=== PATIENT | female | born 1990 | race Caucasian/White ===

== ENCOUNTER → 2016-09-12 | Outpatient (CLI) | payer OTHER ==
[~2016-09-12] MED LIST: BCPILLS PO
[2016-09-12 13:12] LABS: ALT/SGPT 42 U/L (12-78); AST/SGOT 20 U/L (15-37); BLOOD UREA NITROGEN 14 mg/dl (7-18); BUN/CREATININE RATIO 17.9 (10-20); CALCIUM 9.3 mg/dl (8.5-10.1); CARBON DIOXIDE 24 mmol/L (21-32); CHLORIDE 106 mmol/L (98-107); CHOLESTEROL 212 mg/dl (0-200); CREATININE 0.78 mg/dl (0.60-1.20); GLUCOSE,FASTING 93 mg/dl (70-99); POTASSIUM 4.7 mmol/L (3.5-5.1); SODIUM 137 mmol/L (136-145); TRIGLYCERIDES 159 mg/dl (0-150); VERY LOW DENSITY LIPOPROT CALC 32 mg/dl
[2016-09-12 13:16] LABS: ALB/GLOB RATIO 0.8 (0.9-2); ALKALINE PHOSPHATASE 69 U/L (45-117); CHOLESTEROL/HDL RATIO 5.2; HDL CHOLESTEROL 41 mg/dl; LDL CHOLESTEROL CALCULATED 139 mg/dl
== END | disposition home or self-care (01) ==
LOC: C.LABPBG 08:14
PROVIDERS: ATTEND Physician Assistant
DX: Z00.00 Encounter for general adult medical examination without abnormal findings (principal)

== ENCOUNTER → 2017-03-05 | Outpatient (CLI) | payer OTHER ==
[2017-03-05 12:47] LABS: BLOOD UREA NITROGEN 12 mg/dl (7-18); CARBON DIOXIDE 26 mmol/L (21-32); CREATININE 0.65 mg/dl (0.60-1.20); GLUCOSE 92 mg/dl (70-99); POTASSIUM 3.8 mmol/L (3.5-5.1); SODIUM 136 mmol/L (136-145)
== END | disposition home or self-care (01) ==
LOC: C.LABPBG 10:08
PROVIDERS: ATTEND Physician Assistant
DX: I10 Essential (primary) hypertension (principal)

== ENCOUNTER 2019-12-23 07:32 | Inpatient (IN) ==
[2019-12-23] MEDS ORDERED: OXYTOCIN 30 UNITS/500 ML BAG IV PRN ×2 (07:59→08:02)
[2019-12-23 08:35] LABS: Hematocrit (blood only) 34.5 % (37-47); Hemoglobin 11.5 g/dL (12.0-16.0); Mean Corpuscular Hemoglobin 28.5 pg (25-34); Mean Corpuscular Volume 85.6 fL (80-100); Platelet Count 210 K/uL (130-400); RDW Coefficient of Variation 14.6 % (11.5-14.5); RDW Standard Deviation 45.8 fL (36.4-46.3); Red Blood Count 4.03 M/uL (4.2-5.4); White Blood Count 9.24 K/uL (4.8-10.8)
[2019-12-23 08:50] LABS: Mean Corpuscular Hgb Conc 33.3 g/dL (32-36)
[2019-12-23] MEDS: LACTATED RINGER'S 1,000 ML IV PRN ×3 (08:55→20:28)
--- NOTE | 2019-12-23 09:03 | History & Physical Report ---
Date of Service December 23, 2019 Assessment & Plan (1) Chronic hypertension affecting : (2) Obesity affecting , antepartum: (3) Diet controlled gestational diabetes mellitus (GDM), antepartum: (4) Unfavorable cervix in term : pt desires planned induction today. although bps have crept up, do not see any evidence of severe findings or superimposed preeclampsia. labs done yest and were neg. will send urine prot/cr ratio now. watch bps. plan helton ripening and simultaneously begin pitocin. need to check baseline bsg and then q2hr in labor. Admission and Anticipated Discharge Date Admission Date: December 23, 2019 History of Present Illness Chief Complaint: planned induction Primary Care Provider: Any Boudreaux, 29yo at 38+wks egraissa presents to L&D with above cc with her indication being chronic hypertension in . Patient denies easton, visual change, ruq or epig pain. No rom, vb. +FM. No ctx. PNC c/b 1. CHTN, no meds. last efw 47% at 36wks 2. GDM non compliant, not sending glucoses to endo but says they are in range, AC % 51 at 36wks. PNL RH pos, RI, GBS neg, covid neg on 12/15/19 Allergies Allergy/AdvReac Type Severity Reaction Status Date / Time No Known Drug Allergies Allergy Verified 12/22/19 10:53 Home Medications Home Medications Medication Instructions Recorded Confirmed Type prenat.vits,[place]inee,iee-ixwi-hqlgu 1 tab PO DAILY 05/22/19 12/22/19 History acetone (urine) test #50 ea 07/30/19 12/22/19 Rx blood sugar diagnostic #150 ea 07/30/19 12/22/19 Rx blood-glucose meter #1 ea 07/30/19 12/22/19 Rx lancets 33 gauge #150 ea 07/30/19 12/22/19 Rx aspirin 81 mg tablet,delayed 81 mg PO DAILY 08/17/19 12/22/19 History release Patient History Medical History (Updated 12/23/19 @ 09:02 by Louisa Rivera MD, FACOG) Amenorrhea Encounter for anatomic survey H/O infectious mononucleosis HTN (hypertension) Hx of varicella Supervision of normal intrauterine in primigravida Surgical History No pertinent past surgical history Family History (Updated 05/22/19 @ 14:40 by Gabbie Vasquez) Father Hypertension Grandfather (Maternal) Diabetes Myocardial infarction Grandfather (Paternal) Myocardial infarction Grandfather (Maternal) Lung cancer Social History (Updated 05/22/19 @ 14:41 by Gabbie Vasquez) Smoking Status: Former smoker Second Hand Exposure: No; Do You Dip or Chew Tobacco: No; Tobacco Cessation Education Requested by Patient: No Hx Alcohol Use: Yes Hx Substance Use: No Preferred Language: Argentine Communication Ability: Effective Visual Impairment: Limited Hearing Ability: Normal Lead Software Developer Required: No Beliefs That Will Affect Care: None marital status: marital status details: Anjel Messer [phone] Current Living Situation: Spouse Current Living Situation Comment: Lives at home with and 2 dogs current occupational status: employed current occupation: [employer] Other Information That Helps Us Care for You: No Feels Safe at Home: Yes Safety Concerns: Feels Safe At This Time Childhood Exposure to Second-Hand Smoke: No caffeine: Yes (Coffee x 1 today.) during the past year weight has: remained stable Dental Care, Regularly: Yes Physical Activity Frequency: Daily Seatbelt Use: always Sunscreen Use: Yes Assistive Devices: None Review of Systems per hpi Physical Exam Constitutional: WD/WN, vitals as above Respiratory: normal respiratory effort, lungs clear to auscultation Cardiovascular: Rate/Rhythm: regular rate and regular rhythm Gastrointestinal (Abdomen): Percussion/Palpation: abdomen soft (obese); abdomen nontender EFW 8# Musculoskeletal: no edema Neurologic: grossly normal patellar dtr +1 no clonus Psychiatric: A+Ox3, euthymic affect Genitourinary: OB Exam Abdomen: + vertex (by u/d) and + estimated weight (8#) Manual OB Exam: + cervical dilation (finger tip ext os, int os not reachable), + cervical effacement (long) and + station (posterior and medium consistency) high OB Exam Monitor Tracing: + external FHT monitor used (150 mod variability reactive), + external uterine monitor used (no ctx), + category I and + normal FHT variability Informed consent obtained to proceed with helton ripening balloon due to unfavorable cx at term. SSE- cx visualized, grasped on ant lip with ring forcep, helton placed and balloon inflated with 40cc, spec removed, taped to thigh, pt abdulkadir well Results & Data ([facility]) Vital Signs (Past 12 Hours) Vital Signs Temp Pulse Resp BP 12/23/19 08:46 92 H 162/81 H 12/23/19 08:29 92 H 146/89 H 12/23/19 08:14 94 H 153/93 H 12/23/19 08:11 90 142/89 H 12/23/19 08:03 98.1 F 93 H 18 144/94 H 12/23/19 07:43 93 H 144/94 H Coding Level of Care Code None Diagnoses Chronic hypertension affecting O10.919 Obesity affecting , antepartum O99.210 Diet controlled gestational diabetes mellitus (GDM), antepartum O24.410 Unfavorable cervix in term O34.40 CPT Codes Misx Procedure Codes - 05862 Placement of cervical dilator: 20217 Placement of cervical dilator ([id number])
[2019-12-23 09:57] LABS: Protein Creatinine Ratio Urine 0.2 (0-0.2); Total Protein Urine Random 56.5 mg/dl (0-11.9)
--- NOTE | 2019-12-23 14:05 | Labor Progress Brief Note ---
Date of Service December 23, 2019 Subjective Reason For Note: Routine Evaluation helton bulb fell out. Assessment & Plan (1) Diet controlled gestational diabetes mellitus (GDM), antepartum: (2) Obesity affecting , antepartum: (3) Chronic hypertension affecting : will see how arom helps labor pattern, fhts categ 1. pitocin continues. Admission and Anticipated Discharge Date Admission Date: December 23, 2019 Physical Exam Constitutional: WD/WN, vitals as above Genitourinary: OB Exam Abdomen: + vertex (checked again by US) Manual OB Exam: + cervical dilation 4 cm, + cervical effacement (75%), + station (-3 but applied, cx toward left. ) and + amniotic fluid (AROM) clear Results & Data ([facility]) Vital Signs (Past 12 Hours) Vital Signs Temp Pulse Resp BP 12/23/19 13:59 96 H 141/87 H 12/23/19 13:44 81 145/89 H 12/23/19 13:29 88 150/95 H 12/23/19 13:14 84 142/82 H 12/23/19 13:03 92 H 126/87 12/23/19 12:44 86 155/86 H 12/23/19 12:31 86 158/88 H 12/23/19 12:14 90 143/93 H 12/23/19 11:59 85 148/95 H 12/23/19 11:45 90 151/91 H 12/23/19 11:29 82 155/91 H 12/23/19 11:21 99.0 F 83 18 144/88 H 12/23/19 10:59 85 156/85 H 12/23/19 10:45 78 155/80 H 12/23/19 10:30 85 149/86 H 12/23/19 10:14 81 159/82 H 12/23/19 10:01 85 148/85 H 12/23/19 09:29 86 125/85 12/23/19 09:14 90 130/83 12/23/19 09:00 92 H 129/80 12/23/19 08:46 92 H 162/81 H 12/23/19 08:29 92 H 146/89 H 12/23/19 08:14 94 H 153/93 H 12/23/19 08:11 90 142/89 H 10/21/20 08:03 98.1 F 93 H 18 144/94 H 12/23/19 07:43 93 H 144/94 H Coding Level of Care Code None Diagnoses Diet controlled gestational diabetes mellitus (GDM), antepartum O24.410 Obesity affecting , antepartum O99.210 Chronic hypertension affecting O10.919
[2019-12-23] MEDS ORDERED: SODIUM CHLORIDE 0.9% INJ 10 ML VIAL ONE (18:54)
[2019-12-23] MEDS ORDERED: ePHEDrine sulfate 50 MG/ML AMP ONE (18:54)
[2019-12-23] MEDS ORDERED: BUPIVACAINE 0.25% 30 ML VIAL ONE (18:54)
[2019-12-23] MEDS ORDERED: fentaNYL citrate 100 MCG/2 ML VIAL ONE (18:55)
[2019-12-23] MEDS ORDERED: fentaNYL 2MCG/ML ROPIVACAINE 1.25MG/ML 100 ML BAG EPI ONE (18:55)
--- NOTE | 2019-12-23 18:55 | Labor Progress Brief Note ---
Date of Service December 23, 2019 Subjective Reason For Note: Routine Evaluation having pain with ctx, breathing with ctx Assessment & Plan (1) Chronic hypertension affecting : (2) Obesity affecting , antepartum: (3) Diet controlled gestational diabetes mellitus (GDM), antepartum: desires epidural. will start ivf bolus and see if helps increased baseline fhts. some cx change. c/w pit. watch bps. Admission and Anticipated Discharge Date Admission Date: December 23, 2019 Physical Exam Constitutional: WD/WN, vitals as above Genitourinary: Manual OB Exam: + cervical dilation (5), + cervical effacement (75%) and + station -2 OB Exam Monitor Tracing: + external FHT monitor used (160 mod variability, reactive), + external uterine monitor used (q2), + category I and + normal FHT variability Results & Data ([facility]) Vital Signs (Past 12 Hours) Vital Signs Temp Pulse Resp BP 12/23/19 18:52 90 172/93 H 12/23/19 18:44 90 162/92 H 12/23/19 18:30 94 H 144/83 H 12/23/19 18:14 102 H 160/93 H 12/23/19 18:00 92 H 162/90 H 12/23/19 17:45 99 H 160/98 H 12/23/19 17:29 88 161/91 H 12/23/19 17:15 88 153/90 H 12/23/19 16:30 89 159/90 H 12/23/19 16:15 87 153/93 H 12/23/19 15:59 81 153/80 H 12/23/19 15:45 90 155/74 H 12/23/19 15:30 95 H 141/93 H 12/23/19 15:23 90 146/88 H 12/23/19 15:22 98.2 F 90 18 146/88 H 12/23/19 14:44 93 H 138/83 12/23/19 14:29 88 147/85 H 12/23/19 14:14 93 H 142/90 H 12/23/19 13:59 96 H 141/87 H 12/23/19 13:44 81 145/89 H 12/23/19 13:29 88 150/95 H 12/23/19 13:14 84 142/82 H 12/23/19 13:03 92 H 126/87 12/23/19 12:44 86 155/86 H 12/23/19 12:31 86 158/88 H 12/23/19 12:14 90 143/93 H 12/23/19 11:59 85 148/95 H 12/23/19 11:45 90 151/91 H 12/23/19 11:29 82 155/91 H 12/23/19 11:21 99.0 F 83 18 144/88 H 12/23/19 10:59 85 156/85 H 12/23/19 10:45 78 155/80 H 12/23/19 10:30 85 149/86 H 12/23/19 10:14 81 159/82 H 12/23/19 10:01 85 148/85 H 12/23/19 09:29 86 125/85 12/23/19 09:14 90 130/83 12/23/19 09:00 92 H 129/80 12/23/19 08:46 92 H 162/81 H 12/23/19 08:29 92 H 146/89 H 12/23/19 08:14 94 H 153/93 H 12/23/19 08:11 90 142/89 H 12/23/19 08:03 98.1 F 93 H 18 144/94 H 12/23/19 07:43 93 H 144/94 H Coding Level of Care Code None Diagnoses Chronic hypertension affecting O10.919 Obesity affecting , antepartum O99.210 Diet controlled gestational diabetes mellitus (GDM), antepartum O24.410
--- NOTE | 2019-12-23 21:13 | Labor Progress Brief Note ---
Date of Service December 23, 2019 Subjective Reason For Note: Requested By RN cx exam unchanged per rn, pit at 19, wanted to consider iupc if unchanged. pt comfortable. Assessment & Plan (1) Chronic hypertension affecting : (2) Obesity affecting , antepartum: (3) Diet controlled gestational diabetes mellitus (GDM), antepartum: bps noted, not severe. will see how mvu's look with iupc and titrate pit accordingly. fhts categ 1. Admission and Anticipated Discharge Date Admission Date: December 23, 2019 Physical Exam Constitutional: WD/WN, vitals as above Psychiatric: A+Ox3, euthymic affect Genitourinary: Manual OB Exam: + cervical dilation 5 cm, + cervical effacement 100% and + station -2 OB Exam Monitor Tracing: + external FHT monitor used (155 mod variability ), + external uterine monitor used (q2 pit at 19), + intra- uterine pressure catheter used, + category I and + normal FHT variability IUPC placed. Results & Data ([facility]) Vital Signs (Past 12 Hours) Vital Signs Temp Pulse Resp BP Pulse Ox 12/23/19 21:06 97 H 100 12/23/19 21:01 99 H 99 12/23/19 20:56 115 H 152/84 H 96 12/23/19 20:51 88 96 12/23/19 20:46 86 98 12/23/19 20:42 80 143/82 H 12/23/19 20:41 84 99 12/23/19 20:36 87 99 12/23/19 20:31 93 H 99 12/23/19 20:30 16 12/23/19 20:26 91 H 99 12/23/19 20:23 97 H 139/83 12/23/19 20:21 91 H 100 12/23/19 20:18 96 H 141/83 H 12/23/19 20:16 92 H 99 12/23/19 20:15 98.2 F 16 12/23/19 20:14 91 H 147/84 H 12/23/19 20:11 99 H 96 12/23/19 20:10 18 12/23/19 20:08 100 H 149/87 H 12/23/19 20:06 102 H 98 12/23/19 20:04 98 H 147/79 H 12/23/19 20:02 99 H 144/78 H 12/23/19 20:01 98 H 98 12/23/19 20:00 90 18 150/82 H 12/23/19 19:58 97 H 154/88 H 12/23/19 19:56 100 H 139/82 98 12/23/19 19:51 111 H 98 12/23/19 19:46 97 H 98 12/23/19 19:41 114 H 100 12/23/19 19:36 104 H 100 12/23/19 19:31 94 H 99 12/23/19 19:26 105 H 100 12/23/19 19:21 102 H 100 12/23/19 19:18 93 H 160/84 H 12/23/19 19:16 93 H 99 12/23/19 19:01 98.4 F 22 12/23/19 18:59 93 H 164/94 H 12/23/19 18:52 90 172/93 H 12/23/19 18:44 90 162/92 H 12/23/19 18:40 98.4 F 90 22 172/93 H 12/23/19 18:30 94 H 144/83 H 12/23/19 18:14 102 H 160/93 H 12/23/19 18:00 92 H 162/90 H 12/23/19 17:45 99 H 160/98 H 12/23/19 17:29 88 161/91 H 12/23/19 17:16 98.2 F 88 20 153/96 H 12/23/19 17:15 88 153/90 H 12/23/19 16:30 89 159/90 H 12/23/19 16:15 87 153/93 H 12/23/19 15:59 81 153/80 H 12/23/19 15:45 90 155/74 H 12/23/19 15:30 95 H 141/93 H 12/23/19 15:23 90 146/88 H 12/23/19 15:22 98.2 F 90 18 146/88 H 12/23/19 14:44 93 H 138/83 12/23/19 14:29 88 147/85 H 12/23/19 14:14 93 H 142/90 H 12/23/19 13:59 96 H 141/87 H 12/23/19 13:44 81 145/89 H 12/23/19 13:29 88 150/95 H 12/23/19 13:14 84 142/82 H 12/23/19 13:03 92 H 126/87 12/23/19 12:44 86 155/86 H 12/23/19 12:31 86 158/88 H 12/23/19 12:14 90 143/93 H 12/23/19 11:59 85 148/95 H 12/23/19 11:45 90 151/91 H 12/23/19 11:29 82 155/91 H 12/23/19 11:21 99.0 F 83 18 144/88 H 12/23/19 10:59 85 156/85 H 12/23/19 10:45 78 155/80 H 12/23/19 10:30 85 149/86 H 12/23/19 10:14 81 159/82 H 12/23/19 10:01 85 148/85 H 12/23/19 09:29 86 125/85 12/23/19 09:14 90 130/83 Coding Level of Care Code None Diagnoses Chronic hypertension affecting O10.919 Obesity affecting , antepartum O99.210 Diet controlled gestational diabetes mellitus (GDM), antepartum O24.410
[2019-12-23] MEDS ORDERED: fentaNYL 2MCG/ML ROPIVACAINE 1.25MG/ML 100 ML BAG EPI PRN (21:22)
[2019-12-23] MEDS ORDERED: diphenhydrAMINE 50 MG/ML VIAL IV PRN (21:22)
[2019-12-23] MEDS ORDERED: NALOXONE HCL 1 MG in SODIUM CHLORIDE 0.9% 1000ML 1,000 ML IV PRN (21:22)
[2019-12-23] MEDS ORDERED: NALOXONE HCL 0.4 MG/1 ML VIAL/CARP IV PRN (21:22)
[2019-12-23] MEDS ORDERED: ePHEDrine sulfate 50 MG/ML AMP IV PRN (21:22)
[2019-12-23] MEDS ORDERED: ONDANSETRON INJ 2 MG/ML 2 ML VIAL IV PRN (21:22)
--- NOTE | 2019-12-23 21:22 | Anesthesiology Consultation ---
Date of Service December 23, 2019 Assessment & Plan ASA ASA3 Proposed Anesthesia Anesthesia Type: Labor Epidural Risk / Benefits Reviewed With: PT / POA / Parent / Guardian, Accepts Plan and Informed Consent Obtained History Height/Weight Height: 5 ft 7 in Weight: 118.841 kg Allergies Allergy/AdvReac Type Severity Reaction Status Date / Time No Known Drug Allergies Allergy Verified 12/22/19 10:53 Medications Home Medications Medication Instructions Recorded Confirmed Last Taken prenat.vits,[place],lyl-oflo-[id number] 1 tab PO DAILY 05/22/19 12/22/19 Unknown acetone (urine) test #50 07/30/19 12/22/19 Unknown blood sugar diagnostic #150 07/30/19 12/22/19 Unknown blood-glucose meter #1 07/30/19 12/22/19 Unknown lancets 33 gauge #150 07/30/19 12/22/19 Unknown aspirin 81 mg tablet,delayed 81 mg PO DAILY 08/17/19 12/22/19 Unknown release Active Medications Generic Name Dose Route Start Last Admin Trade Name Tonya PRN Reason Stop Dose Admin Lactated Ringer's 1,000 mls @ 125 mls/hr 12/23/19 07:59 12/23/19 20:28 Lr IV 12/25/19 07:58 125 mls/hr .Q8H PRN Administration L&D Protocol Protocol Oxytocin 30 units in 500 mls @ 19 mls/hr 12/23/19 08:02 12/23/19 19:00 Pitocin IV 12/25/19 08:01 1.14 units/hr .Q24H PRN 19 mls/hr Labor Induction/Augmentation Titration Protocol 1.14 UNITS/HR Past Medical History Medical History Amenorrhea Encounter for anatomic survey H/O infectious mononucleosis HTN (hypertension) Hx of varicella Supervision of normal intrauterine in primigravida Exercise / Class Metabolic Activity II 4-5 Yardwork/Stairs/Walk up hill Past Family History Family History Father Hypertension Grandfather (Maternal) Diabetes Myocardial infarction Grandfather (Paternal) Myocardial infarction Grandfather (Maternal) Lung cancer Past Surgical History Surgical History No pertinent past surgical history Past Anesthesia History No Hx of Anesthesia Complications and No Family Hx of Anesthesia Complications History of PONV No Hx of PONV and No Hx of Motion Sickness Social History Smoking Status: Former smoker Do You Dip or Chew Tobacco: No Hx Alcohol Use: Yes Hx Substance Use: No Review of Systems denies fever/cough/ colds/ chest pain/ SOB/ GLORIA denies GLORIA Physical Exam Vital Signs Last Vital Signs Temp 36.8 C 12/23/19 20:15 Pulse 96 H 12/23/19 21:16 Resp 16 12/23/19 20:30 BP 140/67 12/23/19 21:12 Pulse Ox 99 12/23/19 21:16 ENMT Mouth: no TMJ abnormality and no dentition abnormality Thyromental Distance: > or= 3.5 Finger Breadths Mallampati Class: II Neck neck extension not limited Respiratory normal respiratory effort; no respiratory distress Auscultation: lungs clear to auscultation bilaterally Cardiovascular Rate/Rhythm: regular rate and regular rhythm Neurologic moves all extremities Psychiatric Orientation: alert and oriented x 3 Testing Laboratory Results 12/23/19 08:09
[2019-12-24] MEDS: LACTATED RINGER'S 1,000 ML IV PRN (00:58)
--- NOTE | 2019-12-24 02:27 | Labor Progress Brief Note ---
Date of Service December 24, 2019 Subjective Reason For Note: Requested By RN called by nurse to evaluate pt due to pt fatigue, tachy Assessment & Plan (1) Chronic hypertension affecting : (2) Obesity affecting , antepartum: (3) Diet controlled gestational diabetes mellitus (GDM), antepartum: pushes effectively at times. tachy noted but good variability, discussed vacuum assistance with couple but while pushing with them, ctx freq not enough. pit was stopped before per nurse due to decels. drained bladder for 300cc under sterile conditions and then ctx really spaced apart and so pit restarted. she declines vacuum assistance and given fhts baseline comeing down i would like to see if she can take break from pushing, restart pit as we have and change positions. once freq of ctx improve can push again. Admission and Anticipated Discharge Date Admission Date: December 23, 2019 Physical Exam Constitutional: WD/WN, vitals as above Genitourinary: Manual OB Exam: + cervical dilation 10 cm, + cervical effacement 100% and + station + 2 OB Exam Monitor Tracing: + external FHT monitor used (180 mod variability, now more 165 with mod variability and accels), + external uterine monitor used (q3-6), + category I and + normal FHT variability Results & Data ([facility]) Vital Signs (Past 12 Hours) Vital Signs Temp Pulse Resp BP Pulse Ox 12/24/19 02:21 102 H 96 12/24/19 02:16 116 H 97 12/24/19 02:12 115 H 125/67 12/24/19 02:11 114 H 97 12/24/19 02:09 146 H 90 12/24/19 02:06 120 H 96 12/24/19 02:04 116 H 93 12/24/19 02:01 111 H 98 12/24/19 01:57 121 H 120/79 12/24/19 01:56 120 H 98 12/24/19 01:51 113 H 98 12/24/19 01:46 114 H 97 12/24/19 01:44 115 H 85 L 12/24/19 01:42 111 H 135/69 12/24/19 01:41 115 H 97 12/24/19 01:36 131 H 98 12/24/19 01:31 113 H 97 12/24/19 01:28 114 H 138/68 12/24/19 01:26 125 H 88 L 12/24/19 01:21 124 H 98 12/24/19 01:16 109 H 98 12/24/19 01:13 109 H 134/69 12/24/19 01:11 108 H 99 12/24/19 01:07 99.3 F 12/24/19 01:06 128 H 100 12/24/19 01:02 109 H 80 L 12/24/19 01:01 99.3 F 110 H 18 98 12/24/19 00:56 131 H 97 12/24/19 00:51 108 H 98 12/24/19 00:46 127 H 96 12/24/19 00:41 106 H 98 12/24/19 00:38 108 H 90 12/24/19 00:36 108 H 98 12/24/19 00:32 117 H 93 12/24/19 00:31 116 H 98 12/24/19 00:29 114 H 161/81 H 12/24/19 00:26 124 H 99 12/24/19 00:22 98.8 F 20 12/24/19 00:21 114 H 100 12/24/19 00:16 110 H 99 12/24/19 00:11 107 H 137/72 99 12/24/19 00:06 113 H 99 12/24/19 00:01 105 H 98 12/23/19 23:57 112 H 141/80 H 12/23/19 23:56 110 H 99 12/23/19 23:51 106 H 99 12/23/19 23:46 104 H 99 12/23/19 23:42 104 H 159/88 H 12/23/19 23:41 105 H 99 12/23/19 23:36 104 H 100 12/23/19 23:31 104 H 99 12/23/19 23:27 102 H 162/81 H 12/23/19 23:26 99 H 18 100 12/23/19 23:21 106 H 98 12/23/19 23:16 95 H 99 12/23/19 23:11 108 H 151/82 H 98 12/23/19 23:06 103 H 100 12/23/19 23:01 104 H 100 12/23/19 22:59 98 H 155/80 H 94 12/23/19 22:57 100 H 184/85 H 10/21/20 22:56 100 H 100 10/21/20 22:51 107 H 100 10/21/20 22:46 104 H 99 10/21/20 22:45 99.1 F 98 H 18 161/86 H 10/21/20 22:41 106 H 98 10/21/20 22:36 102 H 99 10/21/20 22:31 102 H 99 10/21/20 22:26 109 H 99 10/21/20 22:21 95 H 97 10/21/20 22:16 98 H 98 10/21/20 22:11 101 H 136/80 98 10/21/20 22:06 115 H 18 94 10/21/20 22:02 116 H 91 10/21/20 22:01 116 H 99 10/21/20 21:56 113 H 130/70 99 10/21/20 21:51 112 H 99 10/21/20 21:46 90 99 10/21/20 21:42 91 H 126/76 10/21/20 21:41 93 H 99 10/21/20 21:36 97 H 98 10/21/20 21:31 91 H 98 10/21/20 21:29 18 10/21/20 21:26 101 H 125/63 100 10/21/20 21:21 101 H 100 10/21/20 21:16 96 H 99 10/21/20 21:12 92 H 140/67 10/21/20 21:11 93 H 99 10/21/20 21:06 97 H 100 10/21/20 21:01 99 H 99 10/21/20 21:00 16 10/21/20 20:56 98.4 F 115 H 18 152/84 H 96 10/21/20 20:51 88 96 10/21/20 20:46 86 98 10/21/20 20:42 80 143/82 H 10/21/20 20:41 84 99 10/21/20 20:36 87 99 10/21/20 20:31 93 H 99 10/21/20 20:30 16 10/21/20 20:26 91 H 99 10/21/20 20:23 97 H 139/83 10/21/20 20:21 91 H 100 10/21/20 20:18 96 H 141/83 H 10/21/20 20:16 92 H 99 10/21/20 20:15 98.2 F 16 12/23/19 20:14 91 H 147/84 H 12/23/19 20:11 99 H 96 12/23/19 20:10 18 12/23/19 20:08 100 H 149/87 H 12/23/19 20:06 102 H 98 12/23/19 20:04 98 H 147/79 H 12/23/19 20:02 99 H 144/78 H 12/23/19 20:01 98 H 98 12/23/19 20:00 90 18 150/82 H 12/23/19 19:58 97 H 154/88 H 12/23/19 19:56 100 H 139/82 98 12/23/19 19:51 111 H 98 12/23/19 19:46 97 H 98 12/23/19 19:41 114 H 100 12/23/19 19:36 104 H 100 12/23/19 19:31 94 H 99 12/23/19 19:26 105 H 100 12/23/19 19:21 102 H 100 12/23/19 19:18 93 H 160/84 H 12/23/19 19:16 93 H 99 12/23/19 19:01 98.4 F 22 12/23/19 18:59 93 H 164/94 H 12/23/19 18:52 90 172/93 H 12/23/19 18:44 90 162/92 H 12/23/19 18:40 98.4 F 90 22 172/93 H 12/23/19 18:30 94 H 144/83 H 12/23/19 18:14 102 H 160/93 H 12/23/19 18:00 92 H 162/90 H 12/23/19 17:45 99 H 160/98 H 12/23/19 17:29 88 161/91 H 12/23/19 17:16 98.2 F 88 20 153/96 H 12/23/19 17:15 88 153/90 H 12/23/19 16:30 89 159/90 H 12/23/19 16:15 87 153/93 H 12/23/19 15:59 81 153/80 H 12/23/19 15:45 90 155/74 H 12/23/19 15:30 95 H 141/93 H 12/23/19 15:23 90 146/88 H 12/23/19 15:22 98.2 F 90 18 146/88 H 12/23/19 14:44 93 H 138/83 12/23/19 14:29 88 147/85 H Coding Level of Care Code None Diagnoses Chronic hypertension affecting O10.919 Obesity affecting , antepartum O99.210 Diet controlled gestational diabetes mellitus (GDM), antepartum O24.410
--- NOTE | 2019-12-24 03:56 | Delivery Summary ---
Vaginal Delivery Summary Date of Service December 24, 2019 Called to bedside by nursing as contraction pattern more regular and patient ba ck to 2nd stage and now requesting assistance for maternal exhaustion. C/C/+3. Informed consent obtained for vacuum assistance, again with discussion of risks/benefits and the couple desired to proceed. The bladder had recently been drained. The vacuum was applied and over 2 pulls/2 contractions with one pop off the patient pushed to deliver a viable female infant Apgars 8 and 8 via over 2nd degree perineal laceration. Mouth and nose bulb suctioned at perineum. Shoulders and body delivered with ease. Infant was vigorous and crying at . Cord clamped at 30 seconds of life and infant to maternal abdomen where the cord was then doubly clamped and cut. Placenta delivered spontaneously and intact, three-vessel cord. Hemostasis achieved with dilute pitocin and uterine massage and drainage of the bladder for approximately 150 cc under sterile conditions. Laceration repaired in routine fashion with 3-0 vicryl, a portion of which required 1% local lidocaine injection for anesthesia. Cervix and sulci intact. EBL 300 cc. Mother and baby in stable recovery. Cord blood and gases obtained. [facility] Vaginal Delivery Charge Vaginal Delivery Codes: 84881 global code for the antepartum, delivery, and post-
[2019-12-24] MEDS ORDERED: ACETAMINOPHEN 325 MG TAB PO PRN (03:58)
[2019-12-24] MEDS ORDERED: oxyCODONE/ACETAMINOPHEN 5mg/325mg TAB PO PRN (03:58)
[2019-12-24] MEDS ORDERED: OXYTOCIN 30 UNITS/500 ML BAG IV PRN (03:58)
[2019-12-24] MEDS ORDERED: OXYTOCIN 20 UNITS in LACTATED RINGER'S 1,000 ML IV SCH (04:00)
[2019-12-24] MEDS ORDERED: DIPHTHERIA/TETANUS/PERTUSSIS 0.5 ML SYR/VIAL IM ONE (04:07)
[2019-12-24] MEDS ORDERED: SUPERCREAM 0.870% 15 GM JAR EXT PRN (04:07)
[2019-12-24] MEDS ORDERED: HYDROCORTISONE ACETATE 25 MG SUPP PR PRN (04:07)
[2019-12-24] MEDS ORDERED: BENZOCAINE 20% AER SPR 82.5 GM CAN EXT PRN (04:07)
[2019-12-24 04:12] LABS: Base Excess Cord Arterial Bld -6.6 mEq/L (-9-1.8); CO2 Cord Arterial Blood 33 mmHg (39.1-73.5); HCO3 Cord Arterial Blood 18 mmol/L (19.7-28.5); PO2 Cord Arterial Blood 32 mmHg (4.1-31.7); pH Cord Arterial Blood 7.35 (7.1-7.38)
[2019-12-24 04:17] LABS: Base Excess Cord Venous Blood -6.8 mEq/L (-7.7-1.9); Cord Venous Blood HCO3 18 mmol/L (18.4-26.8); Cord Venous Blood PCO2 32 mmHg (30.4-57.2); Cord Venous Blood PO2 32 mmHg (14.1-43.3); Cord Venous Blood pH 7.35 (7.20-7.44)
[2019-12-24] MEDS: IBUPROFEN 600 MG TAB PO PRN ×2 (06:15→18:45)
--- NOTE | 2019-12-24 06:55 | Anesthesia Procedure Note ---
Date of Service December 24, 2019 Anesthesia Post Epidural Note Vital Signs Vital Signs: Temp Pulse Resp BP Pulse Ox 37.0 C 102 H 16 138/71 97 12/24/19 06:03 12/24/19 06:03 12/24/19 06:03 12/24/19 06:03 12/24/19 03:51 Pain Intensity Lower Abdomen: Pain Intensity: 1 Notes Mental Status: alert / awake / arousable and participated in evaluation Patient Amnestic to Procedure: No Nausea / Vomiting: adequately controlled Pain: adequately controlled Airway Patency, RR, SpO2: stable & adequate BP & HR: stable & adequate Hydration State: stable & adequate Neuraxial Anesthesia: was administered and sensory block resolved Anesthetic Complications: no major complications apparent and Pt Satisfied with anesthetic care
[2019-12-24] MEDS: DOCUSATE SODIUM 100 MG CAP PO SCH ×2 (08:40→21:27)
[2019-12-24] MEDS ORDERED: LABETALOL HCL 100 MG TAB PO ONE ×2 (09:40→17:21)
--- NOTE | 2019-12-24 17:23 | Obstetrical Progress Note ---
Date of Service Patient has had some elevated blood pressures today with some systolics in the 1 60-1 70 range the patient is asymptomatic from a point of view of worrisome sy mptoms such as headache she will disturbances we have tried 100 mg of labetalol p.o. times once and I repeated this dose again so she has had 200 mg p.o. of labetalol we will follow her pressures closely December 24, 2019 Assessment & Plan Admission and Anticipated Discharge Date Admission Date: December 23, 2019 Results & Data ([facility]) Vital Signs (Past 12 Hours) Vital Signs Temp Pulse Pulse Resp BP BP Pulse Ox 12/24/19 17:15 169/94 H 12/24/19 16:18 158/88 H 12/24/19 15:18 98.1 F 116 H 18 171/99 H 99 12/24/19 11:30 97.9 F 102 H 18 155/96 H 97 12/24/19 09:35 161/106 H 12/24/19 08:49 173/107 H 12/24/19 08:31 98.2 F 108 H 18 174/113 H 98 12/24/19 06:03 98.6 F 102 H 16 138/71 12/24/19 05:48 98 H 137/74 12/24/19 05:33 85 18 133/68 PG Care Time/CCT Total # of Minutes Spent Total Time Spent with Patient: Total time spent is greater than 50% in coordination of care (as documented) at patient's floor/unit and/or counseling patient: Coding Level of Care Code None
[2019-12-25] MEDS: IBUPROFEN 600 MG TAB PO PRN ×2 (00:13→16:10)
--- NOTE | 2019-12-25 05:52 | Obstetrical Progress Note ---
Date of Service <Edgar Rodriguez MD - Last Filed: 12/25/19 07:40> December 25, 2019 Assessment & Plan <Edgar Rodriguez MD - Last Filed: 12/25/19 07:40> (1) : - PNL: Rh pos, RI, GBS neg, COVID neg - Feels well today. Eating well, voiding well, ambulating well - Pain well controlled with ibuprofen 600mg Q4H PRN - Patient had high blood pressures yesterday into the 160s-170s and received 200mg labetalol--normotensive since then with no headaches - Routine postparum care -- OOB, ambulation, diet progression as tolerated - After discharge will have 1 week follow-up due to high blood pressures--will go home on labetalol 100mg BID - Plan to discharge later today Day #:: 1 Subjective <Edgar Rodriguez MD - Last Filed: 12/25/19 07:40> Ronald is a 29 y/o female who is PPD #1 following VAVD at 38+ weeks. She reports feeling well overall this morning. Light abdominal cramping and 3/10 pain well managed on analgesics. Voiding well. Tolerating meals overnight without difficulty. Patient has been able to ambulate some. Has persistent lochia with some improvement this morning. Currently . pAtient feels ready to go home today. Review of Systems Denies fever or chills. Denies shortness of breath or cough. Denies chest pain. Denies breast pain. Denies dysuria. Denies leg pain or leg swelling. Denies headache or changes in vision. Physical Exam <Edgar Rodriguez MD - Last Filed: 12/25/19 07:40> General: Alert, oriented. No acute distress. Cardiac: Regular rate and rhythm. No murmurs. Respiratory: Clear to auscultation bilaterally a/p, no wheezes/rales/rhonchi. No increased work of breathing. Symmetrical chest rise. No respiratory distress. Abdomen: Soft, nontender, nondistended. Bowel sounds present. Uterus: Uterine fundus firm, palpable 1 cm below umbilicus. Lower Extremities: No lower extremity edema or swelling. No deep calf pain. Georgie's negative bilaterally. Results & Data ([facility]) <Edgar Rodriguez MD - Last Filed: 12/25/19 07:40> Vital Signs (Past 12 Hours) Vital Signs Temp Pulse Resp BP 12/25/19 04:30 36.4 C L 86 16 123/77 12/25/19 00:10 36.5 C 102 H 16 113/79 12/24/19 21:30 107 H 18 125/85 12/24/19 19:20 36.7 C 116 H 18 116/77 12/24/19 18:05 158/98 H <Tila Oviedo MD, FACOG - Last Filed: 12/25/19 07:54> Co-Signing Physician Notes Resident Physician Supervision Note: I was present with Dr. Champion during the history and exam. I discussed the case with the resident and agree with the findings and plan as documented in the note. Any exceptions or clarifications are listed here: [None] Documented By: Tila Oviedo MD, FACOG Resident Activity Tracking <Edgar Rodriguez MD - Last Filed: 12/25/19 07:40> Resident Involvement: Resident Care Provided Care Provided: OB Delivery
[2019-12-25] MEDS: DOCUSATE SODIUM 100 MG CAP PO SCH ×2 (09:07→20:48)
[2019-12-25] MEDS: LABETALOL HCL 100 MG TAB PO SCH ×2 (10:32→20:48)
--- NOTE | 2019-12-26 06:58 | Obstetrical Progress Note ---
Date of Service <Edgar Rodriguez MD - Last Filed: 12/26/19 08:05> December 26, 2019 Assessment & Plan <Edgar Rodriguez MD - Last Filed: 12/26/19 08:05> (1) : - PNL: Rh pos, RI, GBS neg, COVID neg - Feels well today. Eating well, voiding well, ambulating well - Pain well controlled with ibuprofen 600mg Q4H PRN - Patient had high blood pressures yesterday into the 160s-170s and received 200mg labetalol--normotensive since then with no headaches - Routine postparum care -- OOB, ambulation, diet progression as tolerated - After discharge will have 1 week follow-up due to high blood pressures--will go home on labetalol 100mg BID - Plan for discharge later today Subjective <Edgar Rodriguez MD - Last Filed: 12/26/19 08:05> Ronald is a 29 y/o female who is PPD #2 following at 38+ weeks. She reports feeling well overall this morning. Light abdominal cramping and 1/10 pain well managed on analgesics. Voiding well. Tolerating meals overnight without difficulty. Patient has been able to ambulate some. Has persistent lochia with some improvement this morning. Currently . Review of Systems Denies fever or chills. Denies shortness of breath or cough. Denies chest pain. Denies breast pain. Denies dysuria. Denies leg pain or leg swelling. Denies headache or changes in vision. Physical Exam <Edgar Rodriguez MD - Last Filed: 12/26/19 08:05> General: Alert, oriented. No acute distress. Cardiac: Regular rate and rhythm. No murmurs. Respiratory: Clear to auscultation bilaterally a/p, no wheezes/rales/rhonchi. No increased work of breathing. Symmetrical chest rise. No respiratory distress. Abdomen: Soft, nontender, nondistended. Bowel sounds present. Uterus: Uterine fundus firm, palpable 2 cm below umbilicus. Lower Extremities: No lower extremity edema or swelling. No deep calf pain. Georgie's negative bilaterally. Results & Data ([facility]) <Edgar Rodriguez MD - Last Filed: 12/26/19 08:05> Vital Signs (Past 12 Hours) Vital Signs Temp Pulse Resp BP Pulse Ox 12/26/19 03:10 36.7 C 91 H 16 139/97 98 12/25/19 23:40 36.4 C L 81 17 146/98 H 97 <Joshua Drummond Jr, MD, FACOG - Last Filed: 12/26/19 08:27> Co-Signing Physician Notes Resident Physician Supervision Note: I was present with Dr. Champion during the history and exam. I discussed the case with the resident and agree with the findings and plan as documented in the note. Any exceptions or clarifications are listed here: Patient desires d/c. Rx for labetalol sent, pt to f/u in 1 week for BP check Documented By: Joshua Drummond Jr, MD, FACOG Resident Activity Tracking <Edgar Rodriguez MD - Last Filed: 12/26/19 08:05> Resident Involvement: Resident Care Provided Care Provided: OB Delivery
[2019-12-26] MEDS: IBUPROFEN 600 MG TAB PO PRN (09:07)
[2019-12-26] MEDS: LABETALOL HCL 100 MG TAB PO SCH (09:07)
[2019-12-26] MEDS: DOCUSATE SODIUM 100 MG CAP PO SCH (09:07)
--- NOTE | 2019-12-27 17:06 | Discharge Summary ---
Date of Service Date of admission: December 23, 2019 Date of discharge: December 26, 2019 Admission HPI Per Admitting Provider 29yo at 38+wks felipe presents to L&D with plan for induction with her indication being chronic hypertension in . Patient denies easton, visual change, ruq or epig pain. No rom, vb. +FM. No ctx. PNC c/b 1. CHTN, no meds. last efw 47% at 36wks 2. GDM non compliant, not sending glucoses to endo but says they are in range, AC % 51 at 36wks. PNL RH pos, RI, GBS neg, covid neg on 12/15/19 Discharge Data Consultations 12/23/19 07:59 Consult Anesthesiology Stat Hospital Course (1) Chronic hypertension during : (2) Gestational diabetes: (3) Obesity affecting : The patient was admitted for planned induction and helton ripening balloon was placed for an unfavorable cervix and pitocin was started. Her membranes were ultimately ruptured and she recieved an epidural for anesthesia. Her labor progressed to 2nd stage. She complained of maternal exhaustion and requested vacuum assistance. See delivery summary for details. Her course and recovery were complicated with intermittent elevated blood pressures. She was started on labetalol during her course and sent home on med with prescription sent to pharmacy and plan for 1 week office bp check. She was stable for discharge on her day #2. Instructions reviewed and given. Coding Level of Care Code None Diagnoses Chronic hypertension during O10.919 Gestational diabetes O24.419 Obesity affecting O99.210
== END 2019-12-26 20:46 | disposition home or self-care (01) | DRG 807 ==
LOC: 4S1 07:32 → 4S2 12-24 06:30

== ENCOUNTER 2019-12-29 08:05 | Inpatient (IN) ==
[2019-12-29] MEDS ORDERED: SODIUM CHLORIDE 0.9% 1000ML 1,000 ML IV ONE (08:37)
--- NOTE | 2019-12-29 08:45 | Emergency Department Note ---
History of Present Illness General Chief complaint: Swelling/Edema to Extremity Stated complaint: HAD BABY 5DAYS AGO,SWELLING TO RT FOOT,HX HTN Time Seen by Provider: 12/29/19 08:20 Source: patient, family and old records reviewed Mode of arrival: ambulatory Limitations: no limitations History of Present Illness Maximum Pain Intensity: 3 This patient comes in after having right lower extremity edema for the last 3 days. She is vaginal delivery 5 days ago. It was vacuum extraction they did induce her secondary to chronic hypertension her blood pressure rising. She apparently did not have preeclampsia. They started on labetalol 100 mg twice daily her blood pressure is elevated here although she has yet to take her normal morning dose of blood pressure medication. She has had minimal vaginal b leeding and no significant abdominal pain just some mild soreness. No chest pain shortness of breath or pleurisy. No headache. No focal numbness weakness no nausea or vomiting. She is breast-feeding. Home Medications Home Medications Medication Instructions Recorded Confirmed Type prenat.vits,[place],bts-cmbm-jcqxt 1 tab PO QAM 05/22/19 12/29/19 History acetone (urine) test #50 cathy 07/30/19 12/22/19 Rx blood sugar diagnostic #150 07/30/19 12/22/19 Rx blood-glucose meter #1 07/30/19 12/22/19 Rx lancets 33 gauge #150 07/30/19 12/22/19 Rx labetalol 100 mg PO BID #60 tab 12/25/19 12/29/19 Rx Allergies Allergy/AdvReac Type Severity Reaction Status Date / Time No Known Drug Allergies Allergy Verified 12/29/19 08:40 Past Med/Surg History Medical History Amenorrhea Encounter for anatomic survey H/O infectious mononucleosis HTN (hypertension) Hx of varicella Supervision of normal intrauterine in primigravida Surgical History No pertinent past surgical history Family History Father Hypertension Grandfather (Maternal) Diabetes Myocardial infarction Grandfather (Paternal) Myocardial infarction Grandfather (Maternal) Lung cancer Social History Smoking Status: Never smoker Second Hand Exposure: No; Hx Alcohol Use: Yes Hx Substance Use: No Preferred Language: [place] Communication Ability: Effective Visual Impairment: Limited Hearing Ability: Normal 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 Beliefs That Will Affect Care: None marital status: marital status details: Anjel Messer (32) [phone] Current Living Situation: Spouse Current Living Situation Comment: Lives at home with and 2 dogs current occupational status: employed current occupation: [employer] Feels Safe at Home: Yes Childhood Exposure to Second-Hand Smoke: No caffeine: Yes (Coffee x 1 today.) during the past year weight has: remained stable Dental Care, Regularly: Yes Physical Activity Frequency: Daily Seatbelt Use: always Sunscreen Use: Yes Assistive Devices: Glasses Review of Systems A total of 10 systems reviewed and were otherwise negative Physical Exam Vital Signs Vital Signs - 24 hr 12/29/19 08:09 12/29/19 08:44 12/29/19 08:46 Temperature 37.2 C Temperature Source Oral Pulse Rate 79 76 Pulse Rate [Right Finger] 72 Respiratory Rate 17 18 18 Respiratory Effort / Characteristics Non-Labored Non-Labored Respiratory Depth Normal Normal Respiratory Pattern Regular Blood Pressure 183/112 H Blood Pressure [Right Arm] 176/112 H Blood Pressure Mean 135 Blood Pressure Mean [Right Arm] 133 Blood Pressure Position Sitting Pulse Oximetry 98 98 Oxygen Delivery Method Room Air Room Air Sepsis Recent Fever Within 48 Hours No Sepsis New/Unexplained Change in Mental Status No Sepsis Action Taken by Nursing No Action Required 12/29/19 09:46 Temperature Temperature Source Pulse Rate Pulse Rate [Right Finger] 78 Respiratory Rate 20 Respiratory Effort / Characteristics Respiratory Depth Respiratory Pattern Blood Pressure Blood Pressure [Right Arm] 143/105 H Blood Pressure Mean Blood Pressure Mean [Right Arm] 117 Blood Pressure Position Pulse Oximetry 97 Oxygen Delivery Method Room Air Sepsis Recent Fever Within 48 Hours Sepsis New/Unexplained Change in Mental Status Sepsis Action Taken by Nursing General: Well developed well nourished in no acute distress, breathing comfortably on room air. Normal speech HEENT: Normal cephalic atraumatic. Pupils are equal round and reactive to light. Extraocular movements are intact. Oropharynx is pink with moist mucous membranes. No swelling of the mouth lips or tongue. Neck: Supple with a midline trachea. No meningeal signs or stiffness, no JVD or bruits. No Stridor. Chest: Clear to auscultation bilaterally. No wheezes or rhonchi. No increased work of breathing. Heart: Regular rate and rhythm without murmurs or gallops. Abdomen: Soft nontender, nondistended without rebound guarding or rigidity. Extremities: No cyanosis clubbing. She has trace lower extremity on the left, she has trace to 1+ with some pitting on the right Spine/Back. Non tender to palpation. No CVA tenderness Skin: Good turgor without rashes. Neurologic exam: Cranial nerves two through 12 are intact. Motor and sensation are intact and symmetrical throughout. Course Administered Medications Lactated Ringer's (Lr) 1,000 mls @ 125 mls/hr IV .Q8H PRN; Protocol PRN Reason: L&D Protocol Stop: 12/31/19 11:07 Last Admin: 12/29/19 11:17 Dose: 75 mls/hr Documented by: [id number] Magnesium Sulfate (Magnesium Sulfate / Wtr) 40 gm in 1,000 mls @ 50 mls/hr IV .Q20H LUCHO Stop: 01/28/20 11:07 Last Infusion: 12/29/19 12:02 Dose: 50 mls/hr Documented by: [id number] Cosigned by: [id number] Admin: 12/29/19 11:30 Dose: 200 mls/hr Documented by: [id number] Cosigned by: [id number] Discontinued Medications Sodium Chloride (Nss 1000ml) 1,000 mls @ 999 mls/hr IV .Q1H1M ONE Stop: 12/29/19 09:37 Last Infusion: 12/29/19 10:24 Dose: 0 mls/hr Documented by: [id number] Admin: 12/29/19 09:00 Dose: 999 mls/hr Documented by: [id number] Critical Care Time Critical Care Time: Yes Total Critical Care Time: 30 I have personally spent greater than 30 minutes of critical care time in the direct management of this patient. This includes bedside care, interpretation of diagnostic studies, and testing, discussion with consultants, patient, and family members, and other required patient management activities. This 30 minutes is in excess of all separately billable procedures. Medical Decision Making Differential Diagnosis DVT, lower extremity edema, preeclampsia, eclampsia, hypertension, infection, Covid, electrolyte or metabolic abnormality Medical Records Attestation: I reviewed the patient's medical records. Home Medications Current Medication List: was personally reviewed by me Laboratory Data Attestation: I reviewed the patient's lab results. Result diagrams: 12/29/19 08:50 12/29/19 08:50 Lab Results 12/29/19 12/29/19 12/29/19 Range/Units 08:25 08:25 08:50 WBC 11.17 H (4.8-10.8) K/uL RBC 3.58 L (4.2-5.4) M/uL Hgb 9.9 L (12.0-16.0) g/dL Hct 31.1 L (37-47) % MCV 86.9 (80-100) fL MCH 27.7 (25-34) pg MCHC 31.8 L (32-36) g/dL RDW Std Deviation 45.4 (36.4-46.3) fL RDW Coeff of Amadou 14.4 (11.5-14.5) % Plt Count 282 (130-400) K/uL MPV 10.1 (7.4-10.4) fL Immature Gran % (Auto) 1.3 % Neut % (Auto) 73.0 % Lymph % (Auto) 15.8 % Kimble % (Auto) 7.3 % Eos % (Auto) 2.3 % Baso % (Auto) 0.3 % Neut # (Auto) 8.15 H (1.4-6.5) K/uL Lymph # (Auto) 1.77 (1.2-3.4) K/uL Kimble # (Auto) 0.81 H (0.11-0.59) K/uL Eos # (Auto) 0.26 (0-0.5) K/uL Baso # (Auto) 0.03 (0-0.2) K/uL Immature Gran # (Auto) 0.15 H (0.00-0.02) K/uL Sodium (136-145) mmol/L Potassium (3.5-5.1) mmol/L Chloride (98-107) mmol/L Carbon Dioxide (21-32) mmol/L Anion Gap (3-11) BUN (7-18) mg/dl Creatinine (0.6-1.2) mg/dl Est Cr Clr Drug Dosing ml/min Est GFR ( Amer) Est GFR (Non-Af Amer) BUN/Creatinine Ratio (10-20) Glucose (70-99) mg/dl Calcium (8.5-10.1) mg/dl Magnesium (1.8-2.4) mg/dl Total Bilirubin (0.2-1) mg/dl AST (15-37) U/L ALT (12-78) U/L Alkaline Phosphatase (45-117) U/L Total Protein (6.4-8.2) gm/dl Albumin (3.4-5.0) gm/dl Globulin (2.5-4.0) gm/dl Albumin/Globulin Ratio (0.9-2) Lipase (73-393) U/L Urine Color Yellow Urine Appearance Cloudy A (Clear) Urine pH 6.0 (4.5-7.5) Ur Specific [place] 1.011 (1.000-1.030) Urine Protein 1+ H (Negative) Urine Glucose (UA) Negative (Negative) Urine Ketones Negative (Negative) Urine Blood 3+ H (Negative) Urine Nitrite Negative (Negative) Urine Bilirubin Negative (Negative) Urine Urobilinogen Negative (Negative) Ur Leukocyte Esterase 3+ H (Negative) Urine WBC (Auto) >30 H (0-5) /hpf Urine RBC (Auto) >30 H (0-4) /hpf U Hyaline Cast (Auto) 1-5 (0-5) /lpf U Epithel Cells (Auto) 10-20 H (0-5) /lpf Urine Bacteria (Auto) 1+ H (Negative) Urine Yeast Not Reportable Ur Random Creatinine 48.3 mg/dl U Random Total Protein 39.2 H (0-11.9) mg/dl Protein/Creatinin Ratio 0.8 H (0-0.2) 12/29/19 12/29/19 Range/Units 08:50 09:18 WBC (4.8-10.8) K/uL RBC (4.2-5.4) M/uL Hgb (12.0-16.0) g/dL Hct (37-47) % MCV (80-100) fL MCH (25-34) pg MCHC (32-36) g/dL RDW Std Deviation (36.4-46.3) fL RDW Coeff of Amadou (11.5-14.5) % Plt Count (130-400) K/uL MPV (7.4-10.4) fL Immature Gran % (Auto) % Neut % (Auto) % Lymph % (Auto) % [place] % (Auto) % Eos % (Auto) % Baso % (Auto) % Neut # (Auto) (1.4-6.5) K/uL Lymph # (Auto) (1.2-3.4) K/uL [place] # (Auto) (0.11-0.59) K/uL Eos # (Auto) (0-0.5) K/uL Baso # (Auto) (0-0.2) K/uL Immature Gran # (Auto) (0.00-0.02) K/uL Sodium 140 (136-145) mmol/L Potassium 3.7 (3.5-5.1) mmol/L Chloride 107 (98-107) mmol/L Carbon Dioxide 26 (21-32) mmol/L Anion Gap 7.0 (3-11) BUN 12 (7-18) mg/dl Creatinine 0.69 (0.6-1.2) mg/dl Est Cr Clr Drug Dosing 153.2 ml/min Est GFR ( Amer) 134.4 Est GFR (Non-Af Amer) 116.0 BUN/Creatinine Ratio 17.7 (10-20) Glucose 85 (70-99) mg/dl Calcium 8.4 L (8.5-10.1) mg/dl Magnesium 2.5 H (1.8-2.4) mg/dl Total Bilirubin 0.3 (0.2-1) mg/dl AST 157 H (15-37) U/L ALT 201 H (12-78) U/L Alkaline Phosphatase 123 H (45-117) U/L Total Protein 7.4 (6.4-8.2) gm/dl Albumin 2.6 L (3.4-5.0) gm/dl Globulin 4.8 H (2.5-4.0) gm/dl Albumin/Globulin Ratio 0.5 L (0.9-2) Lipase 65 L (73-393) U/L Urine Color Yellow Urine Appearance Clear (Clear) Urine pH 6.5 (4.5-7.5) Ur Specific [place] 1.007 (1.000-1.030) Urine Protein Negative (Negative) Urine Glucose (UA) Negative (Negative) Urine Ketones Negative (Negative) Urine Blood Trace H (Negative) Urine Nitrite Negative (Negative) Urine Bilirubin Negative (Negative) Urine Urobilinogen Negative (Negative) Ur Leukocyte Esterase Negative (Negative) Urine WBC (Auto) 1-5 (0-5) /hpf Urine RBC (Auto) 0-4 (0-4) /hpf U Hyaline Cast (Auto) 0 (0-5) /lpf U Epithel Cells (Auto) 10-20 H (0-5) /lpf Urine Bacteria (Auto) Negative (Negative) Urine Yeast Ur Random Creatinine mg/dl U Random Total Protein (0-11.9) mg/dl Protein/Creatinin Ratio (0-0.2) Imaging Data Attestation: I personally reviewed and interpreted this imaging study as follows: Radiologist's Impression: US venous doppler LE RT CLINICAL HISTORY: Right leg swelling COMPARISON STUDY: No previous studies for comparison. FINDINGS: Real-time and color flow Doppler imaging were performed. Flow was seen within the femoral, popliteal and calf veins with no intraluminal thrombus demonstrated. The saphenous vein is patent. IMPRESSION: No evidence of right lower extremity DVT XR chest 1V portable CLINICAL HISTORY: le edema COMPARISON STUDY: No previous studies for comparison. FINDINGS: Lung volumes are normal. Lungs are clear. There is no pneumothorax or pleural effusion. Cardiac size is normal. Mediastinal contours are normal. There is no evidence for pulmonary edema. IMPRESSION: No acute cardiopulmonary findings. ECG Data Attestation: I personally reviewed and interpreted this ECG as follows: Indication: + weakness Rate (beats per minute): 91 Rhythm: + normal sinus ECG Intervals/blocks: + Normal QRS, + Normal QT and + Normal NH ECG [place]: + Normal ECG ST segments: + Normal ST segments ECG Findings: no PACs and no PVCs Comparison ECG Date: no prior available MDM Narrative This patient comes in with lower extremity edema mostly on the right exam is definitely asymmetrical. She just delivered 5 days ago she has had chronic hypertension during the . There is no notes of preeclampsia. We did a urine dip here she does have protein however she has blood in her urine which makes this difficult to discern her blood pressure was elevated in triage at 175/111 however she has not taken her morning meds yet which she did while she was in the ED. She has no chest pain or shortness of breath, she has no n eurologic symptoms. I sent a formal cath urinalysis, IV access established and she was hydrated with IV normal saline we did order ultrasound of her lower extremity and EKG. EKG does not show ischemic changes or any significant arrhythmia. Chest x-ray was clear and does not suggest congestive heart failure pneumonia or pneumothorax. Ultrasound of the right lower extremity does not show any evidence of DVT. Her liver functions were moderately elevated acute concerning for preeclampsia given her symptoms. Her renal function is normal. Her platelet function is normal. Her blood pressure is trending downward with her oral labetalol and was 140/110. I did talk to Dr. Rivera who had called down and wants her admitted and started on 4 g of magnesium IV load given the fact that there is concern for preeclampsia. The magnesium was ordered and by the time he arrived at a bed upstairs so the nurse took it upstairs and they will started on the OB rayo. The patient happy the plan and she will be admitted Continuous cardiac monitoring: An order was placed in our and she was noted to be in normal sinus rhythm pulse of 73 Impression & Plan Pre-eclampsia, HTN (hypertension), Status post vaginal delivery, Bilateral ed kj of lower extremity Discharge Plan Visit Data Chief Complaint: Swelling/Edema to Extremity Stated Complaint: HAD BABY 5DAYS AGO,SWELLING TO RT FOOT,HX HTN ED Provider: David Gipson Discharge Problem: Pre-eclampsia, HTN (hypertension), Status post vaginal delivery, Bilateral edema of lower extremity Patient Disposition: Admitted As Inpatient Discharge Instructions Interventions: ED Discharge Assessment Last Done: 12/29/19 10:46 Discharge Problem: Pre-eclampsia Qualifiers: Trimester: unspecified trimester Qualified Code(s): O14.90 - Unspecified pre- eclampsia, unspecified trimester HTN (hypertension) Qualifiers: Hypertension type: unspecified Qualified Code(s): I10 - Essential (primary) hypertension
[2019-12-29 09:04] LABS: Basophils # (auto) 0.03 K/uL (0-0.2); Basophils % (auto) 0.3 %; Eosinophils # (auto) 0.26 K/uL (0-0.5); Eosinophils % (auto) 2.3 %; Hematocrit (blood only) 31.1 % (37-47); Hemoglobin 9.9 g/dL (12.0-16.0); Immature Granulocytes # (auto) 0.15 K/uL (0.00-0.02); Immature Granulocytes % (auto) 1.3 %; Lymphocytes # (auto) 1.77 K/uL (1.2-3.4); Lymphocytes % (auto) 15.8 %; Mean Corpuscular Hemoglobin 27.7 pg (25-34); Mean Corpuscular Hgb Conc 31.8 g/dL (32-36); Mean Corpuscular Volume 86.9 fL (80-100); Mean Platelet Volume 10.1 fL (7.4-10.4); Monocytes # (auto) 0.81 K/uL (0.11-0.59); Monocytes % (auto) 7.3 %; Neutrophils # (auto) 8.15 K/uL (1.4-6.5); Platelet Count 282 K/uL (130-400); RDW Coefficient of Variation 14.4 % (11.5-14.5); RDW Standard Deviation 45.4 fL (36.4-46.3); Red Blood Count 3.58 M/uL (4.2-5.4); White Blood Count 11.17 K/uL (4.8-10.8)
[2019-12-29 09:06] LABS: Appearance Urine Cloudy (Clear); Bilirubin Urine Negative (Negative); Blood Urine 3+ (Negative); Color Urine Yellow; Glucose Urine UA Negative (Negative); Ketones Urine Negative (Negative); Leukocyte Esterase Urine 3+ (Negative); Nitrite Urine Negative (Negative); Protein Urine 1+ (Negative); RBC Urine Automated >30 /hpf (0-4); Specific Gravity Urine 1.011 (1.000-1.030); Urobilinogen Urine Negative (Negative); WBC Urine Automated >30 /hpf (0-5)
--- NOTE | 2019-12-29 09:15 | XRay Report ---
XR chest 1V portable CLINICAL HISTORY: le edema COMPARISON STUDY: No previous studies for comparison. FINDINGS: Lung volumes are normal. Lungs are clear. There is no pneumothorax or pleural effusion. Car diac size is normal. Mediastinal contours are normal. There is no evidence for pulmonary edema. IMPRESSION: No acute cardiopulmonary findings. ACT 112: Negative or not required by law. Electronically signed by: Thomas Simon M.D. 12/29/2019 9:13 AM
[2019-12-29 09:16] LABS: Bacteria Urine Automated 1+ (Negative)
[2019-12-29 09:22] LABS: Albumin Level 2.6 gm/dl (3.4-5.0); BUN Creatinine Ratio 17.7 (10-20); Calcium 8.4 mg/dl (8.5-10.1); Creatinine Clr Calc Pharmacy 153.2 ml/min; Est GFR (African American) 134.4; Magnesium 2.5 mg/dl (1.8-2.4); Potassium 3.7 mmol/L (3.5-5.1)
[2019-12-29 09:24] LABS: Albumin Globulin Ratio 0.5 (0.9-2); Bilirubin,Total 0.3 mg/dl (0.2-1); Globulin 4.8 gm/dl (2.5-4.0); Total Protein 7.4 gm/dl (6.4-8.2)
[2019-12-29] MEDS ORDERED: MAG SULFATE BOLUS FROM BAG 4 GM IV ONE (09:40)
[2019-12-29 09:53] LABS: Creatinine Urine Random 48.3 mg/dl; Protein Creatinine Ratio Urine 0.8 (0-0.2); Total Protein Urine Random 39.2 mg/dl (0-11.9)
--- NOTE | 2019-12-29 10:11 | Ultrasound Report ---
US venous doppler LE RT CLINICAL HISTORY: Right leg swelling COMPARISON STUDY: No previous studies for comparison. FINDINGS: Real-time and color flow Doppler imaging were performed. Flow was seen within the femoral, popliteal and calf veins with no intraluminal thrombus demonstrated. The saphenous vein is patent. IMPRESSION: No evidence of right lower extremity DVT ACT 112: Negative or not required by law. Electronically signed by: Arsen Walton M.D. 12/29/2019 10:10 AM
[2019-12-29 10:18] LABS: Appearance Urine Clear (Clear); Bacteria Urine Automated Negative (Negative); Bilirubin Urine Negative (Negative); Blood Urine Trace (Negative); Cast Urine Automated 0 /lpf (0-5); Color Urine Yellow; Glucose Urine UA Negative (Negative); Ketones Urine Negative (Negative); Leukocyte Esterase Urine Negative (Negative); Nitrite Urine Negative (Negative); Protein Urine Negative (Negative); RBC Urine Automated 0-4 /hpf (0-4); Specific Gravity Urine 1.007 (1.000-1.030); Urobilinogen Urine Negative (Negative); pH Urine 6.5 (4.5-7.5)
[2019-12-29] MEDS ORDERED: MAGNESIUM SULFATE / WTR 4 GM/100 ML BAG IV ONE (10:45)
[2019-12-29] MEDS ORDERED: SUPERCREAM 0.870% 15 GM JAR EXT PRN (11:10)
[2019-12-29] MEDS: LACTATED RINGER'S 1,000 ML IV PRN ×2 (11:17→23:40)
[2019-12-29] MEDS: MAGNESIUM SULFATE / WTR 40 GM/1,000 ML BAG IV SCH (11:30)
[2019-12-29] MEDS ORDERED: MAG SULFATE BOLUS FROM BAG IV ONE (11:30)
--- NOTE | 2019-12-29 14:21 | OB/GYN Consultation ---
Date of Consultation December 29, 2019 Assessment & Plan (1) Pre-eclampsia, severe, delivered with condition: Ronald is a 29-year-old approximately 5 days status post vaginal delivery presents with preeclampsia with severe features. Patient is noted to have severe range blood pressures as well as elevated liver enzymes. Findings were discussed with Ronald her partner and discussed recommendation for admission for magnesium and blood pressure control. She patient was agreeable to plan. Will increase patient's labetalol if significantly elevated blood pressures persists. Will repeat labs in 6 hours and as needed going forward. History of Present Illness Reason for Consultation: Preeclampsia Requesting Physician: ED Attending Physician: Norris Hernández MD History of Present Illness Ronald is a 29-year-old status post vaginal delivery approximately 5 days ago. Patient has a known history of chronic hypertension not on medication prior to . Patient was discharged from the hospital following delivery on 100 mg of labetalol twice daily. Patient presents to the emergency department today for lower extremity edema. Patient reporting some mild right upper quadrant tenderness denying any headaches. In emergency department the patient was noted have an elevated blood pressure in the 180s/110s. Preeclampsia evaluation was performed the patient was noted have a slightly decreased H&H, and elevated liver enzymes. The patient was noted to have continued elevated blood pressure which did decrease to mild range. A protein creatinine ratio was noted to be 0.8 via straight catheterization. Patient had lower extremity ultrasound for DVT performed was negative. Chest x-ray was also negative for PE. Allergies Allergy/AdvReac Type Severity Reaction Status Date / Time No Known Drug Allergies Allergy Verified 12/29/19 08:40 Home Medications Home Medications Medication Instructions Recorded Confirmed Type prenat.vits,[place],ckt-[id number] 1 tab PO QAM 05/22/19 12/29/19 History acetone (urine) test #50 ea 07/30/19 12/22/19 Rx blood sugar diagnostic #150 ea 07/30/19 12/22/19 Rx blood-glucose meter #1 ea 07/30/19 12/22/19 Rx lancets 33 gauge #150 ea 07/30/19 12/22/19 Rx labetalol 100 mg PO BID #60 tab 12/25/19 12/29/19 Rx Patient History Medical History Amenorrhea Encounter for anatomic survey H/O infectious mononucleosis HTN (hypertension) Hx of varicella Supervision of normal intrauterine in primigravida Surgical History No pertinent past surgical history Family History Father Hypertension Grandfather (Maternal) Diabetes Myocardial infarction Grandfather (Paternal) Myocardial infarction Grandfather (Maternal) Lung cancer Social History Smoking Status: Never smoker Second Hand Exposure: No; Hx Alcohol Use: No Hx Substance Use: No Preferred Language: Malay Communication Ability: Effective Visual Impairment: Limited Hearing Ability: Normal 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 Beliefs That Will Affect Care: None marital status: marital status details: Anjel Messer (32) [phone] Current Living Situation: Spouse Current Living Situation Comment: spouse and 5 day old daughter current occupational status: employed current occupation: [employer] Other Information That Helps Us Care for You: No Feels Safe at Home: Yes Safety Concerns: Feels Safe At This Time Childhood Exposure to Second-Hand Smoke: No caffeine: Yes (Coffee x 1 today.) during the past year weight has: remained stable Dental Care, Regularly: Yes Physical Activity Frequency: Daily Seatbelt Use: always Sunscreen Use: Yes Assistive Devices: None Review of Systems Review of Systems: All systems reviewed & are unremarkable except as noted in HPI & below Review of systems is negative except as noted per HPI Physical Exam Constitutional: WD/WN, vitals as above well developed, well nourished and + well hydrated; no acute distress Eyes: PERRL, conjunctivae normal, anicteric sclerae ENMT: external ear and nose normal, oropharynx normal Neck: trachea midline, no thyromegaly Respiratory: normal respiratory effort, lungs clear to auscultation no respiratory distress, no labored breathing and no cough Cardiovascular: RRR, no murmur, no edema Heart Sounds: normal S1 and normal S2 Extremities: + edema (1+) Gastrointestinal (Abdomen): normal bowel sounds, soft, nontender, no hepatosplenomegaly Inspection/Auscultation: abdomen not distended and no abdominal edema Skin: no rashes, warm and dry normal turgor Neurologic: PERRL, EOMI, accommodation nl, no face palsy, no dysarthria no rmal touch/pain/proprioception Psychiatric: A+Ox3, euthymic affect Apperance: appropriately dressed and appropriately groomed Lymphatic: no cervical or axillary lymphadenopathy Results & Data ([facility]) Vital Signs (Past 12 Hours) Vital Signs Temp Pulse Pulse Resp BP BP Pulse Ox 12/29/19 13:32 80 20 164/97 H 97 12/29/19 13:30 20 12/29/19 12:32 76 20 155/90 H 98 12/29/19 12:18 73 20 153/87 H 98 12/29/19 12:04 71 20 166/88 H 12/29/19 11:48 36.8 C 80 20 154/87 H 12/29/19 11:31 79 20 173/98 H 12/29/19 11:20 20 12/29/19 09:46 78 20 143/105 H 97 12/29/19 08:46 72 18 176/112 H 12/29/19 08:44 76 18 98 12/29/19 08:09 37.2 C 79 17 183/112 H 98
[2019-12-29] MEDS: LABETALOL HCL 200 MG TAB PO SCH ×2 (14:50→21:02)
[2019-12-29 15:09] LABS: Hematocrit (blood only) 28.8 % (37-47); Hemoglobin 9.2 g/dL (12.0-16.0); Mean Corpuscular Hemoglobin 27.9 pg (25-34); Mean Corpuscular Hgb Conc 31.9 g/dL (32-36); Mean Corpuscular Volume 87.3 fL (80-100); Mean Platelet Volume 9.9 fL (7.4-10.4); Platelet Count 268 K/uL (130-400); RDW Coefficient of Variation 14.6 % (11.5-14.5); RDW Standard Deviation 46.7 fL (36.4-46.3); White Blood Count 9.29 K/uL (4.8-10.8)
[2019-12-29 15:26] LABS: Albumin Level 2.3 gm/dl (3.4-5.0); BUN Creatinine Ratio 15.7 (10-20); Calcium 7.3 mg/dl (8.5-10.1); Creatinine Clr Calc Pharmacy 173.3 ml/min; Est GFR (Non-African American) 120.8; Magnesium Therapeutic L&D Only 4.5 mg/dL (4.0-8.0); Potassium 3.5 mmol/L (3.5-5.1)
[2019-12-29 15:29] LABS: Albumin Globulin Ratio 0.5 (0.9-2); Bilirubin,Total 0.3 mg/dl (0.2-1); Globulin 4.3 gm/dl (2.5-4.0); Total Protein 6.6 gm/dl (6.4-8.2)
[2019-12-29] MEDS: ACETAMINOPHEN 325 MG TAB PO PRN ×2 (16:19→22:24)
[2019-12-29] MEDS ORDERED: IBUPROFEN 600 MG TAB PO PRN (19:30)
[2019-12-29] MEDS ORDERED: IBUPROFEN 600 MG TAB PO ONE (19:46)
[2019-12-30] MEDS: LACTATED RINGER'S 1,000 ML IV PRN (04:28)
[2019-12-30] MEDS: MAGNESIUM SULFATE / WTR 40 GM/1,000 ML BAG IV SCH (04:28)
--- NOTE | 2019-12-30 05:59 | Electrocardiogram Report ---
Test Reason : Blood Pressure : / mmHG Vent. Rate : 091 BPM Atrial Rate : 091 BPM P-R Int : 128 ms QRS Dur : 070 ms QT Int : 382 ms P-R-T Axes : 000 050 041 degrees QTc Int : 469 ms Normal sinus rhythm Normal ECG No previous ECGs available Confirmed by Alfred Hung ([id number]) on 12/30/2019 5:58:59 AM Referred By: REFERRED SELF Confirmed By:Alfred Hung
[2019-12-30] MEDS: ACETAMINOPHEN 325 MG TAB PO PRN (06:00)
[2019-12-30 06:55] LABS: Hematocrit (blood only) 30.3 % (37-47); Hemoglobin 9.4 g/dL (12.0-16.0); Mean Corpuscular Hemoglobin 27.2 pg (25-34); Mean Corpuscular Volume 87.6 fL (80-100); Mean Platelet Volume 10.3 fL (7.4-10.4); Platelet Count 329 K/uL (130-400); RDW Coefficient of Variation 14.4 % (11.5-14.5); RDW Standard Deviation 46.6 fL (36.4-46.3); Red Blood Count 3.46 M/uL (4.2-5.4); White Blood Count 9.41 K/uL (4.8-10.8)
[2019-12-30 07:23] LABS: Albumin Globulin Ratio 0.6 (0.9-2); Albumin Level 2.4 gm/dl (3.4-5.0); BUN Creatinine Ratio 12.6 (10-20); Bilirubin,Total 0.3 mg/dl (0.2-1); Calcium 6.9 mg/dl (8.5-10.1); Creatinine Clr Calc Pharmacy 179.2 ml/min; Est GFR (African American) 141.6; Est GFR (Non-African American) 122.1; Globulin 4.3 gm/dl (2.5-4.0); Magnesium Therapeutic L&D Only 6.5 mg/dL (4.0-8.0); Potassium 4.1 mmol/L (3.5-5.1); Total Protein 6.7 gm/dl (6.4-8.2)
--- NOTE | 2019-12-30 08:30 | Obstetrical Progress Note ---
Date of Service December 30, 2019 Assessment & Plan (1) Pre-eclampsia, severe, delivered with condition: 29yo on PP Mg. Stable. Denies persistent PIH symptoms, Diuresing well I/O: -3500ml/ 20hr. Labs stable but with continued elevation of AST/ALT. BPs mostly mild range - Increased Labetalol to 300mg TID. Continue Mg to complete 24hrs course Admission and Anticipated Discharge Date Admission Date: December 29, 2019 Subjective 29yo admitted for preeclampsia with severe features. Patient on 24hr PPMg. Doing well today. Reports occasional PRESCOTT resolves with tylenol/motrin. Denies other PIH symptoms Results & Data ([facility]) Vital Signs (Past 12 Hours) Vital Signs Temp Pulse Resp BP Pulse Ox 12/30/19 08:23 77 95 12/30/19 08:18 77 97 12/30/19 08:13 79 97 12/30/19 08:08 84 95 12/30/19 08:03 76 95 12/30/19 07:58 80 97 12/30/19 07:53 77 96 12/30/19 07:48 81 99 12/30/19 07:43 79 97 12/30/19 07:41 80 152/89 H 12/30/19 07:38 83 96 12/30/19 07:33 81 96 12/30/19 07:28 81 96 12/30/19 07:23 83 95 12/30/19 07:18 80 95 12/30/19 07:15 36.9 C 18 12/30/19 07:13 85 93 12/30/19 07:08 72 94 12/30/19 07:06 72 94 12/30/19 07:03 73 93 12/30/19 07:01 68 92 12/30/19 06:58 70 94 12/30/19 06:53 73 93 12/30/19 06:51 77 94 12/30/19 06:48 77 95 12/30/19 06:45 79 94 12/30/19 06:43 70 94 12/30/19 06:41 78 136/74 12/30/19 06:39 76 94 12/30/19 06:38 73 93 12/30/19 06:33 74 93 12/30/19 06:29 73 93 12/30/19 06:28 72 94 12/30/19 06:24 79 94 12/30/19 06:23 76 95 12/30/19 06:19 84 94 12/30/19 06:18 83 97 12/30/19 06:13 84 97 12/30/19 06:08 80 97 12/30/19 06:03 86 96 12/30/19 06:02 80 94 12/30/19 06:00 18 12/30/19 05:58 78 96 12/30/19 05:56 86 94 12/30/19 05:53 77 94 12/30/19 05:49 80 93 12/30/19 05:48 77 96 12/30/19 05:43 82 96 12/30/19 05:40 76 141/90 H 12/30/19 05:38 79 96 12/30/19 05:33 81 96 12/30/19 05:28 77 96 12/30/19 05:23 78 96 12/30/19 05:18 76 97 12/30/19 05:13 77 95 12/30/19 05:09 18 12/30/19 05:08 81 95 12/30/19 05:03 80 96 12/30/19 04:58 79 97 12/30/19 04:53 77 96 12/30/19 04:48 77 95 12/30/19 04:43 83 96 12/30/19 04:42 77 94 12/30/19 04:41 74 145/81 H 12/30/19 04:38 77 95 12/30/19 04:36 76 94 12/30/19 04:33 76 94 12/30/19 04:31 79 94 12/30/19 04:28 78 97 12/30/19 04:24 80 94 12/30/19 04:23 81 95 12/30/19 04:18 78 94 12/30/19 04:16 82 94 12/30/19 04:15 18 12/30/19 04:13 84 97 12/30/19 04:08 91 H 97 12/30/19 04:07 82 94 12/30/19 04:03 76 95 12/30/19 04:01 76 94 12/30/19 03:58 72 95 12/30/19 03:55 74 94 12/30/19 03:53 71 96 12/30/19 03:48 73 95 10/28/20 03:47 74 94 12/30/19 03:45 18 12/30/19 03:43 77 95 12/30/19 03:42 74 93 12/30/19 03:41 73 169/89 H 12/30/19 03:38 73 96 12/30/19 03:33 73 95 12/30/19 03:28 74 96 12/30/19 03:23 73 95 12/30/19 03:20 74 94 12/30/19 03:18 73 95 12/30/19 03:13 76 96 12/30/19 03:08 74 95 12/30/19 03:03 74 95 12/30/19 02:58 79 95 12/30/19 02:56 77 93 12/30/19 02:53 76 95 12/30/19 02:48 77 95 12/30/19 02:47 74 94 12/30/19 02:45 18 12/30/19 02:43 71 95 12/30/19 02:41 77 94 12/30/19 02:40 75 146/78 H 12/30/19 02:38 74 96 12/30/19 02:33 74 95 12/30/19 02:28 73 95 12/30/19 02:23 73 96 12/30/19 02:18 76 95 12/30/19 02:17 73 94 12/30/19 02:13 74 95 12/30/19 02:08 74 95 12/30/19 02:07 74 94 12/30/19 02:03 74 95 12/30/19 02:01 75 94 12/30/19 01:58 74 96 12/30/19 01:53 73 95 12/30/19 01:48 72 94 12/30/19 01:47 72 94 12/30/19 01:45 16 12/30/19 01:43 71 94 12/30/19 01:42 76 94 12/30/19 01:41 75 153/73 H 12/30/19 01:38 74 96 12/30/19 01:35 72 94 12/30/19 01:33 71 95 12/30/19 01:30 71 94 12/30/19 01:28 70 95 12/30/19 01:25 72 94 12/30/19 01:23 71 95 12/30/19 01:19 77 94 12/30/19 01:18 76 95 12/30/19 01:13 76 95 12/30/19 01:11 78 94 12/30/19 01:08 80 98 12/30/19 01:03 83 98 12/30/19 00:58 83 97 12/30/19 00:53 79 97 12/30/19 00:48 78 96 12/30/19 00:45 18 12/30/19 00:43 83 98 12/30/19 00:40 80 141/77 H 12/30/19 00:38 83 97 12/30/19 00:32 74 95 12/30/19 00:28 75 94 12/30/19 00:27 73 95 12/30/19 00:26 81 150/78 H 12/30/19 00:22 82 97 12/30/19 00:17 77 95 12/30/19 00:12 79 95 12/30/19 00:11 78 93 12/30/19 00:07 73 94 12/30/19 00:06 74 94 12/30/19 00:02 76 95 12/30/19 00:00 74 94 12/29/19 23:57 73 95 12/29/19 23:52 74 97 12/29/19 23:47 74 95 12/29/19 23:46 72 94 12/29/19 23:45 36.7 C 16 12/29/19 23:42 73 95 12/29/19 23:39 72 94 12/29/19 23:37 83 98 12/29/19 23:33 76 94 12/29/19 23:32 74 95 12/29/19 23:28 74 94 12/29/19 23:27 74 95 12/29/19 23:25 74 148/81 H 12/29/19 23:22 77 95 12/29/19 23:17 74 95 12/29/19 23:16 77 16 94 12/29/19 23:12 82 94 12/29/19 23:11 78 92 12/29/19 23:07 75 95 12/29/19 23:05 75 94 12/29/19 23:01 75 93 12/29/19 22:59 75 94 12/29/19 22:56 87 90 12/29/19 22:53 77 94 12/29/19 22:51 77 94 12/29/19 22:47 75 94 12/29/19 22:46 71 95 12/29/19 22:42 72 94 12/29/19 22:41 70 94 12/29/19 22:37 70 94 12/29/19 22:36 70 95 12/29/19 22:31 72 95 12/29/19 22:26 82 97 12/29/19 22:25 76 131/72 93 12/29/19 22:21 73 97 12/29/19 22:19 74 94 12/29/19 22:16 72 94 12/29/19 22:14 68 94 12/29/19 22:11 72 93 12/29/19 22:08 72 94 12/29/19 22:06 70 93 12/29/19 22:02 75 93 12/29/19 22:01 80 95 12/29/19 22:00 16 12/29/19 21:56 74 96 12/29/19 21:51 75 95 12/29/19 21:46 72 95 12/29/19 21:41 74 95 12/29/19 21:36 73 95 12/29/19 21:35 72 94 12/29/19 21:31 72 95 12/29/19 21:26 72 95 12/29/19 21:25 71 116/62 12/29/19 21:21 71 95 12/29/19 21:16 72 94 12/29/19 21:11 68 94 12/29/19 21:06 73 94 12/29/19 21:05 77 93 12/29/19 21:01 72 95 12/29/19 21:00 16 12/29/19 20:56 66 94 12/29/19 20:53 70 94 12/29/19 20:51 68 95 12/29/19 20:48 73 94 12/29/19 20:46 79 96 12/29/19 20:41 77 97 12/29/19 20:36 78 98 12/29/19 20:31 76 97 PG Care Time/CCT Total # of Minutes Spent Total Time Spent with Patient: Total time spent is greater than 50% in coordination of care (as documented) at patient's floor/unit and/or counseling patient: Coding Level of Care Code 80254 Subseq Hosp Care Lvl 2 Diagnoses Pre-eclampsia, severe, delivered with condition O14.15
[2019-12-30] MEDS: IBUPROFEN 600 MG TAB PO PRN (08:36)
[2019-12-30] MEDS: LABETALOL HCL 300 MG TAB PO SCH ×3 (08:36→20:30)
[2019-12-30] MEDS ORDERED: oxyCODONE/ACETAMINOPHEN 5mg/325mg TAB PO PRN (09:43)
[2019-12-30] MEDS: MAGNESIUM HYDROXIDE SUSP 30 ML UDC PO PRN (13:49)
[2019-12-30] MEDS ORDERED: DOCUSATE SODIUM 100 MG CAP PO ONE (16:07)
[2019-12-30] MEDS ORDERED: bisacodyL 10 MG SUPP PR PRN (16:07)
[2019-12-31 06:53] LABS: Basophils # (auto) 0.02 K/uL (0-0.2); Basophils % (auto) 0.2 %; Hemoglobin 8.9 g/dL (12.0-16.0); Immature Granulocytes # (auto) 0.06 K/uL (0.00-0.02); Immature Granulocytes % (auto) 0.6 %; Lymphocytes # (auto) 1.76 K/uL (1.2-3.4); Lymphocytes % (auto) 17.5 %; Mean Corpuscular Hemoglobin 27.1 pg (25-34); Mean Corpuscular Hgb Conc 30.7 g/dL (32-36); Mean Corpuscular Volume 88.4 fL (80-100); Mean Platelet Volume 10.2 fL (7.4-10.4); Monocytes # (auto) 0.54 K/uL (0.11-0.59); Monocytes % (auto) 5.4 %; Neutrophils # (auto) 7.46 K/uL (1.4-6.5); Neutrophils % (auto) 74.3 %; Platelet Count 351 K/uL (130-400); RDW Coefficient of Variation 14.8 % (11.5-14.5); RDW Standard Deviation 48.2 fL (36.4-46.3); Red Blood Count 3.28 M/uL (4.2-5.4); White Blood Count 10.04 K/uL (4.8-10.8)
--- NOTE | 2019-12-31 06:58 | Obstetrical Progress Note ---
Date of Service <Edgar Rodriguez MD - Last Filed: 12/31/19 07:15> December 31, 2019 Assessment & Plan <Edgar Rodriguez MD - Last Filed: 12/31/19 07:15> (1) Pre-eclampsia, severe, delivered with condition: Ronald is a 29yo on PP Mg. Stable. - Denies persistent PIH symptoms - Diuresing well I/O: -1560ml in last 24hrs. - Labs pending this morning--will follow results - BPs controlled since yesterday AM on Labetalol 300mg PO TID - Likely discharge today pending lab results Subjective <Edgar Rodriguez MD - Last Filed: 12/31/19 07:15> Ronald is a 29yo PPD # 8 following @ 38+ wk who was admitted for severe preeclampsia. Received Mg and is on labetalol 300mg TID. Stable today, denies PIH symptoms. Headaches well controlled now. Review of Systems Denies fever or chills. Denies shortness of breath or cough. Denies chest pain. Denies breast pain. Denies dysuria. Denies leg pain or leg swelling. Denies headache or changes in vision. Physical Exam <Edgar Rodriguez MD - Last Filed: 12/31/19 07:15> General: Alert, oriented. No acute distress. Cardiac: Regular rate and rhythm. No murmurs. Respiratory: Clear to auscultation bilaterally a/p, no wheezes/rales/rhonchi. No increased work of breathing. Symmetrical chest rise. No respiratory distress. Abdomen: Soft, nontender, nondistended. Bowel sounds present. Uterus: Uterine fundus firm, palpable 2 cm below umbilicus. Lower Extremities: No lower extremity edema or swelling. No deep calf pain. Georgie's negative bilaterally. Results & Data ([facility]) <Edgar Rodriguez MD - Last Filed: 12/31/19 07:15> Vital Signs (Past 12 Hours) Vital Signs Temp Pulse Resp BP Pulse Ox 12/31/19 04:50 37.0 C 83 16 131/83 96 12/31/19 00:30 36.9 C 90 17 117/75 96 12/30/19 20:15 37.0 C 93 H 16 130/86 96 <Daniela London MD, FACOG - Last Filed: 12/31/19 07:47> Co-Signing Physician Notes Resident Physician Supervision Note: I was present with Dr. Champion during the history and exam. I discussed the case with the resident and agree with the findings and plan as documented in the note. Any exceptions or clarifications are listed here: [None] Documented By: Daniela London MD, FACOG Resident Activity Tracking <Edgar Rodriguez MD - Last Filed: 12/31/19 07:15> Resident Involvement: Resident Care Provided Care Provided: OB Delivery
[2019-12-31 07:26] LABS: Est GFR (African American) 133.8; Est GFR (Non-African American) 115.5
[2019-12-31] MEDS: LABETALOL HCL 300 MG TAB PO SCH ×3 (09:02→20:56)
[2019-12-31] MEDS ORDERED: LABETALOL HCL 100 MG TAB PO ONE (15:44)
--- NOTE | 2019-12-31 15:52 | Obstetrical Progress Note ---
Date of Service December 31, 2019 Assessment & Plan (1) Pre-eclampsia, severe, delivered with condition: BPs increasing today, most recently had 150s/90s around 1530 and upon recheck. Had received 300mg labetalol around 1400. Half of BPs are in 150s today with the most recent BPs (not yet entered), will increase labetalol to 400 TID. Give 100mg now as recently had 1400 dose, 2100 dose will be full 400mg. If BPs improve, consider DC tomorrow. Pt given ample time for questions, answered to her satisfaction Admission and Anticipated Discharge Date Admission Date: December 29, 2019 Subjective Resting comfortably. Denies PRESCOTT, vision change, CP, SOB, RUQ/epigastric pain. Doing well otherwise Physical Exam Constitutional: WD/WN, vitals as above no acute distress Respiratory: normal respiratory effort; no respiratory distress and no labored breathing Results & Data ([facility]) Vital Signs (Past 12 Hours) Vital Signs Temp Pulse Pulse Resp BP BP Pulse Ox 12/31/19 13:50 143/86 H 12/31/19 12:15 98.2 F 77 18 142/88 H 98 12/31/19 10:39 134/86 12/31/19 09:00 98.6 F 78 16 152/92 H 97 12/31/19 07:34 98.4 F 77 18 140/88 96 12/31/19 04:50 98.6 F 83 16 131/83 96 PG Care Time/CCT Total # of Minutes Spent Total Time Spent with Patient: Total time spent is greater than 50% in coordination of care (as documented) at patient's floor/unit and/or counseling patient: Coding Level of Care Code None Diagnoses Pre-eclampsia, severe, delivered with condition O14.15
[2019-12-31] MEDS: MAGNESIUM HYDROXIDE SUSP 30 ML UDC PO PRN (19:31)
[2019-12-31] MEDS ORDERED: LABETALOL HCL 200 MG TAB PO SCH (21:00)
[2019-12-31] MEDS: SENNA 8.6 MG TAB PO SCH (21:50)
[2020-01-01] MEDS: LABETALOL HCL 300 MG TAB PO SCH ×2 (05:43→13:48)
--- NOTE | 2020-01-01 06:07 | Obstetrical Progress Note ---
Date of Service <Edgar Rodriguez MD - Last Filed: 01/01/20 06:50> January 01, 2020 Assessment & Plan <Edgar Rodriguez MD - Last Filed: 01/01/20 06:50> (1) Pre-eclampsia, severe, delivered with condition: Ronald is a 29yo with severe preeclampsia. Stable currently. - Denies persistent PIH symptoms - Labs pending - BPs up to 150s-160s/90s-100s - Currently on labetalol 600mg PO q8h - Will monitor BPs and pending labs this AM Subjective <Edgar Rodriguez MD - Last Filed: 01/01/20 06:50> Patient doing overall well this morning with no complaints. - BP at 167/104 this morning--153/92 on repeat. - ROS otherwise negative. Denies headache, vision changes, CP, SOB, RUQ pain. Physical Exam <Edgar Rodriguez MD - Last Filed: 01/01/20 06:50> General: Alert, oriented. No acute distress. Cardiac: Regular rate and rhythm. No murmurs. Respiratory: Clear to auscultation bilaterally a/p, no wheezes/rales/rhonchi. No increased work of breathing. Symmetrical chest rise. No respiratory distress. Abdomen: Soft, nontender, nondistended. Bowel sounds present. Uterus: Uterine fundus firm, palpable 3 cm below umbilicus. Lower Extremities: No lower extremity edema or swelling. No deep calf pain. Georgie's negative bilaterally. Results & Data ([facility]) <Edgar Rodriguez MD - Last Filed: 01/01/20 06:50> Vital Signs (Past 12 Hours) Vital Signs Temp Pulse Resp BP BP 01/01/20 05:25 36.8 C 78 18 167/104 H 12/31/19 23:20 37 C 78 18 139/87 12/31/19 22:00 37 C 72 16 139/87 12/31/19 20:25 160/104 H 12/31/19 20:00 37 C 72 18 155/93 H 12/31/19 19:30 37 C 72 18 165/107 H <Amelia Lauren MD - Last Filed: 01/01/20 07:35> Co-Signing Physician Notes Resident Physician Supervision Note: I interviewed and examined the patient. Discussed with Dr. Champion and agree with findings and plan as documented in the note. Any exceptions or clarifications are listed here: Increased labetalol to 600q8 last night due to elevated BPs, demonstrated improvement following. This AM initially had a severe range but repeat was mild, reports was taken when she was woken up and just prior to medication being due. Will await pre-eclampsia labs, no other s/s of PET currently. Will likely need to stay through tomorrow to make sure no further med adjustments needed Documented By: Amelia Lauren MD Resident Activity Tracking <Edgar Rodriguez MD - Last Filed: 01/01/20 06:50> Resident Involvement: Resident Care Provided Care Provided: OB Delivery
[2020-01-01 07:17] LABS: Basophils # (auto) 0.02 K/uL (0-0.2); Basophils % (auto) 0.2 %; Eosinophils # (auto) 0.27 K/uL (0-0.5); Hematocrit (blood only) 30.7 % (37-47); Hemoglobin 9.7 g/dL (12.0-16.0); Immature Granulocytes # (auto) 0.07 K/uL (0.00-0.02); Immature Granulocytes % (auto) 0.8 %; Lymphocytes # (auto) 2.02 K/uL (1.2-3.4); Lymphocytes % (auto) 22.5 %; Mean Corpuscular Hemoglobin 27.8 pg (25-34); Mean Corpuscular Hgb Conc 31.6 g/dL (32-36); Mean Platelet Volume 9.4 fL (7.4-10.4); Monocytes # (auto) 0.52 K/uL (0.11-0.59); Monocytes % (auto) 5.8 %; Neutrophils # (auto) 6.08 K/uL (1.4-6.5); Neutrophils % (auto) 67.7 %; Platelet Count 350 K/uL (130-400); RDW Coefficient of Variation 14.7 % (11.5-14.5); RDW Standard Deviation 47.4 fL (36.4-46.3); Red Blood Count 3.49 M/uL (4.2-5.4); White Blood Count 8.98 K/uL (4.8-10.8)
[2020-01-01] MEDS ORDERED: NIFEdipine EXTENDED REL 30 MG TABCR PO STA (07:51)
[2020-01-01 07:58] LABS: Albumin Globulin Ratio 0.5 (0.9-2); Albumin Level 2.6 gm/dl (3.4-5.0); BUN Creatinine Ratio 16.6 (10-20); Bilirubin,Total 0.3 mg/dl (0.2-1); Calcium 8.8 mg/dl (8.5-10.1); Creatinine Clr Calc Pharmacy 142.9 ml/min; Est GFR (African American) 125.1; Globulin 4.9 gm/dl (2.5-4.0); Total Protein 7.5 gm/dl (6.4-8.2)
--- NOTE | 2020-01-01 09:16 | Neurology Consultation ---
Date of Consultation January 01, 2020 History of Present Illness Attending Physician: Norris Hernández MD Allergies Allergy/AdvReac Type Severity Reaction Status Date / Time No Known Drug Allergies Allergy Verified 12/29/19 08:40 Home Medications Home Medications Medication Instructions Recorded Confirmed Type prenat.vits,[place],rah-ifiz-spatw 1 tab PO QAM 05/22/19 12/29/19 History acetone (urine) test #50 ea 07/30/19 12/22/19 Rx blood sugar diagnostic #150 ea 07/30/19 12/22/19 Rx blood-glucose meter #1 ea 07/30/19 12/22/19 Rx lancets 33 gauge #150 ea 07/30/19 12/22/19 Rx labetalol 100 mg PO BID #60 tab 12/25/19 12/29/19 Rx Patient History Medical History (Updated 12/29/19 @ 14:28 by Norris Hernández MD) Amenorrhea Encounter for anatomic survey H/O infectious mononucleosis HTN (hypertension) Hx of varicella Supervision of normal intrauterine in primigravida Surgical History No pertinent past surgical history Family History Father Hypertension Grandfather (Maternal) Diabetes Myocardial infarction Grandfather (Paternal) Myocardial infarction Grandfather (Maternal) Lung cancer Social History Smoking Status: Never smoker Second Hand Exposure: No; Hx Alcohol Use: No Hx Substance Use: No Preferred Language: Burundian Communication Ability: Effective Visual Impairment: Limited Hearing Ability: Normal Refrigerator Mover Required: No Beliefs That Will Affect Care: None marital status: marital status details: Anjel Messer (32) [phone] Current Living Situation: Spouse Current Living Situation Comment: spouse and 5 day old daughter current occupational status: employed current occupation: [employer] Other Information That Helps Us Care for You: No Feels Safe at Home: Yes Safety Concerns: Feels Safe At This Time Childhood Exposure to Second-Hand Smoke: No caffeine: Yes (Coffee x 1 today.) during the past year weight has: remained stable Dental Care, Regularly: Yes Physical Activity Frequency: Daily Seatbelt Use: always Sunscreen Use: Yes Assistive Devices: None Results & Data ([facility]) Vital Signs (Past 12 Hours) Vital Signs Temp Pulse Pulse Resp BP BP Pulse Ox 01/01/20 07:40 36.6 C 81 16 154/92 H 152/97 H 97 01/01/20 05:45 69 18 153/92 H 01/01/20 05:25 36.8 C 78 18 167/104 H 12/31/19 23:20 37 C 78 18 139/87 12/31/19 22:00 37 C 72 16 139/87
--- NOTE | 2020-01-01 09:36 | Hospitalist Consultation ---
Date of Consultation January 01, 2020 Assessment & Plan (1) HTN (hypertension): 29 yo F hx htn, gestational diabetes controlled with diet, post after delivery with pre-ecclampsia. Consulted for hypertension management. 1. HTN - Previously on lisinopril 10 mg daily. On review of [employer], no studies on whether lisinopril is transmitted in breast milk and patient is planning to breast feed. Discussed that it would be safer to avoid this given the damage in newborns. - no concern for hypertensive urgency or emergency at this time - Agree with Procardia 30 mg this morning - Recommend BP checks Q4H - EKG from 12/28 reviewed, normal sinus without abnormalities. - AST, ALT, Alk Phos downtrending appropriately - chest pain episode appears to have been anxiety related, patient may benefit from outpatient follow up for anxiety control. - would recommend against CT angio given lack of tachycardia, hypoxia, risk of radiation exposure. - would not recommend further imaging studies at this time. - Given Fmhx and personal hx HTN, would benefit from chcf Beta jorge for control. Recommend discharging with 25 mg metoprolol succinate BID and stopping labetalol. - Close follow up with PCP 2-3 days after discharge (2) Gestational diabetes: Supervising Physician Co-Signing Physician Notes I personally examined the patient and verified all garcia points of history and exam, discussed case, and agree with decision making with Dr Moser feeling ok. did have some swelling but no sob. vitals noted nad heent nc at mmm breathing unlabored no accessory msucles good effort skin no rashes no pallor or icterus CT noted and reviewed w pt HTN -baseline HTN, suspect current uncontrolled partly close w preeclampsia, part anxiety due to the situation -agree w transtiion to metoprolol for ongoing management/easier dosing (classified as safe in ) -educated extensively -due to her (understandable) anxiety about the situation - OK to follow into tomorrow inpt, but anticipate home w close monitoring and PCP f/u in near future otherwise as above History of Present Illness Reason for Consultation: Hypertension Attending Physician: Norris Hernández MD History of Present Illness Patient is a 29-year-old G1, P1 female 3 days . We were consulted for ongoing hypertension after delivery. Patient was preeclamptic with blood pressures as high as 167/104. She was treated with 24 hours of magnesium while preeclamptic until delivery. After delivery she was started on labetalol in increasing doses as her blood pressure remained elevated. This morning when she received a dose of 30 mg of nifedipine. Through this whole episode she has attested to no symptoms and does not realize when her blood pressure is high. She states she had one brief episode of chest tightness that felt exactly like her anxiety episodes. Denies any chest pressure or chest pain at this time. Denies headache, blurry vision, numbness or tingling, weakness, nausea vomiting, shortness of breath. Is a strong family history of hypertension and myocardial infarction in the 50s. She was also notably a gestational diabetic but to her knowledge is not diabetic prior to the . She was able to control her sugars with diet and exercise. Allergies Allergy/AdvReac Type Severity Reaction Status Date / Time No Known Drug Allergies Allergy Verified 12/29/19 08:40 Home Medications Home Medications Medication Instructions Recorded Confirmed Type prenat.vits,destinee,uyk-riao-vucog 1 tab PO QAM 05/22/19 12/29/19 History acetone (urine) test #50 ea 07/30/19 12/22/19 Rx blood sugar diagnostic #150 ea 07/30/19 12/22/19 Rx blood-glucose meter #1 ea 07/30/19 12/22/19 Rx lancets 33 gauge #150 ea 07/30/19 12/22/19 Rx labetalol 100 mg PO BID #60 tab 12/25/19 12/29/19 Rx metoprolol succinate 25 mg PO BID 30 Days #60 tab 01/01/20 Rx Patient History Medical History (Updated 12/29/19 @ 14:28 by Norris Hernández MD) Amenorrhea Encounter for anatomic survey H/O infectious mononucleosis HTN (hypertension) Hx of varicella Supervision of normal intrauterine in primigravida Surgical History No pertinent past surgical history Family History Father Hypertension Grandfather (Maternal) Diabetes Myocardial infarction Grandfather (Paternal) Myocardial infarction Grandfather (Maternal) Lung cancer Social History Smoking Status: Never smoker Second Hand Exposure: No; Hx Alcohol Use: No Hx Substance Use: No Preferred Language: Jamaican Communication Ability: Effective Visual Impairment: Limited Hearing Ability: Normal Walking Dragline Operator Required: No Beliefs That Will Affect Care: None marital status: marital status details: Anjel Messer ([phone] Current Living Situation: Spouse Current Living Situation Comment: spouse and 5 day old daughter current occupational status: employed current occupation: [employer] Feels Safe at Home: Yes Childhood Exposure to Second-Hand Smoke: No caffeine: Yes (Coffee x 1 today.) during the past year weight has: remained stable Dental Care, Regularly: Yes Physical Activity Frequency: Daily Seatbelt Use: always Sunscreen Use: Yes Assistive Devices: None Review of Systems Constitutional: no body aches and no weakness Eyes: no blind spots, no discharge and no eye pain Respiratory: no cough and no dyspnea Cardiovascular: no chest pain, no palpitations, no lightheadedness and no edema Gastrointestinal: no abdominal pain and no vomiting Neurologic: no gait abnormality, no localized weakness, no loss of sensation, no tingling and no tremor(s) Physical Exam Physical Exam: Constitutional: obese, in no apparent distress, sitting comfortably in bed. Eyes: EOMI, pupils equal and reactive bilaterally, no scleral icterus Cardiac: RRR, no murmurs, gallops or rubs. Normal S1, S2 Pulm: CTA BL, no wheezes, rhonchi, crackles or rubs, moving air well throughout both lungs Abd: soft, nontender, nondistended, normal bowel sounds, no rebound or guarding Extremities: 2+ peripheral pulses, no edema Neuro: no focal deficits, moving all 4 limbs, A&Ox3, 2+ patellar reflexes Results & Data Results & Data ([facility]) Vital Signs (Past 12 Hours) Vital Signs Temp Pulse Pulse Resp BP BP Pulse Ox 01/01/20 07:40 36.6 C 81 16 154/92 H 152/97 H 97 01/01/20 05:45 69 18 153/92 H 01/01/20 05:25 36.8 C 78 18 167/104 H 12/31/19 23:20 37 C 78 18 139/87 12/31/19 22:00 37 C 72 16 139/87 Laboratory Results WBC 8.98 K/uL (4.8-10.8) 01/01/20 07:06 RBC 3.49 M/uL (4.2-5.4) L 01/01/20 07:06 Hgb 9.7 g/dL (12.0-16.0) L 01/01/20 07:06 Hct 30.7 % (37-47) L 01/01/20 07:06 MCV 88.0 fL (80-100) 01/01/20 07:06 MCH 27.8 pg (25-34) 01/01/20 07:06 MCHC 31.6 g/dL (32-36) L 01/01/20 07:06 RDW Std Deviation 47.4 fL (36.4-46.3) H 01/01/20 07:06 RDW Coeff of Amadou 14.7 % (11.5-14.5) H 01/01/20 07:06 Plt Count 350 K/uL (130-400) 01/01/20 07:06 MPV 9.4 fL (7.4-10.4) 01/01/20 07:06 Immature Gran % (Auto) 0.8 % 01/01/20 07:06 Neut % (Auto) 67.7 % 01/01/20 07:06 Lymph % (Auto) 22.5 % 01/01/20 07:06 Ritchie % (Auto) 5.8 % 01/01/20 07:06 Eos % (Auto) 3.0 % 01/01/20 07:06 Baso % (Auto) 0.2 % 01/01/20 07:06 Neut # (Auto) 6.08 K/uL (1.4-6.5) 01/01/20 07:06 Lymph # (Auto) 2.02 K/uL (1.2-3.4) 01/01/20 07:06 Ritchie # (Auto) 0.52 K/uL (0.11-0.59) 01/01/20 07:06 Eos # (Auto) 0.27 K/uL (0-0.5) 01/01/20 07:06 Baso # (Auto) 0.02 K/uL (0-0.2) 01/01/20 07:06 Immature Gran # (Auto) 0.07 K/uL (0.00-0.02) H 01/01/20 07:06 Sodium 141 mmol/L (136-145) 01/01/20 07:06 Potassium 4.0 mmol/L (3.5-5.1) 01/01/20 07:06 Chloride 109 mmol/L (98-107) H 01/01/20 07:06 Carbon Dioxide 25 mmol/L (21-32) 01/01/20 07:06 Anion Gap 7.0 (3-11) 01/01/20 07:06 BUN 12 mg/dl (7-18) 01/01/20 07:06 Creatinine 0.74 mg/dl (0.6-1.2) 01/01/20 07:06 Est Cr Clr Drug Dosing 142.9 ml/min 01/01/20 07:06 Est GFR ( Amer) 125.1 01/01/20 07:06 Est GFR (Non-Af Amer) 108.0 01/01/20 07:06 BUN/Creatinine Ratio 16.6 (10-20) 01/01/20 07:06 Glucose 95 mg/dl (70-99) 01/01/20 07:06 Calcium 8.8 mg/dl (8.5-10.1) 01/01/20 07:06 Magnesium 2.5 mg/dl (1.8-2.4) H 12/29/19 08:50 Magnesium (Sulf Ther) 6.5 mg/dL (4.0-8.0) 12/30/19 06:07 Total Bilirubin 0.3 mg/dl (0.2-1) 01/01/20 07:06 AST 31 U/L (15-37) 01/01/20 07:06 ALT 99 U/L (12-78) H 01/01/20 07:06 Alkaline Phosphatase 104 U/L (45-117) 01/01/20 07:06 Total Protein 7.5 gm/dl (6.4-8.2) 01/01/20 07:06 Albumin 2.6 gm/dl (3.4-5.0) L 01/01/20 07:06 Globulin 4.9 gm/dl (2.5-4.0) H 01/01/20 07:06 Albumin/Globulin Ratio 0.5 (0.9-2) L 01/01/20 07:06 Lipase 65 U/L (73-393) L 12/29/19 08:50 Urine Color Yellow 12/29/19 09:18 Urine Appearance Clear (Clear) 12/29/19 09:18 Urine pH 6.5 (4.5-7.5) 12/29/19 09:18 Ur Specific [place] 1.007 (1.000-1.030) 12/29/19 09:18 Urine Protein Negative (Negative) 12/29/19 09:18 Urine Glucose (UA) Negative (Negative) 12/29/19 09:18 Urine Ketones Negative (Negative) 12/29/19 09:18 Urine Blood Trace (Negative) H 12/29/19 09:18 Urine Nitrite Negative (Negative) 12/29/19 09:18 Urine Bilirubin Negative (Negative) 12/29/19 09:18 Urine Urobilinogen Negative (Negative) 12/29/19 09:18 Ur Leukocyte Esterase Negative (Negative) 12/29/19 09:18 Urine WBC (Auto) 1-5 /hpf (0-5) 12/29/19 09:18 Urine RBC (Auto) 0-4 /hpf (0-4) 12/29/19 09:18 U Hyaline Cast (Auto) 0 /lpf (0-5) 12/29/19 09:18 U Epithel Cells (Auto) 10-20 /lpf (0-5) H 12/29/19 09:18 Urine Bacteria (Auto) Negative (Negative) 12/29/19 09:18 Urine Yeast Not Reportable 12/29/19 08:25 Ur Random Creatinine 48.3 mg/dl 12/29/19 08:25 U Random Total Protein 39.2 mg/dl (0-11.9) H 12/29/19 08:25 Protein/Creatinin Ratio 0.8 (0-0.2) H 12/29/19 08:25 COVID-19 Eval Order Covid19 [facility]Now [facility] 12/29/19 12:00 SARS-CoV-2, RNA, NAAT NEGATIVE (NEGATIVE) 12/29/19 12:00 Resident Activity Tracking Resident Involvement: Resident Care Provided Care Provided: Adult Hospital Medicine (1) HTN (hypertension) Hypertension type: unspecified Qualified Code(s): I10 - Essential (primary) hypertension
[2020-01-01] MEDS ORDERED: OPTIRAY 320 125ml IV ONE (12:09)
--- NOTE | 2020-01-01 12:23 | CT Scan Report ---
CHEST CTA for PULMONARY ARTERIES CT DOSE: 778.53 mGy.cm HISTORY: Atypical chest pain. TECHNIQUE: Multiaxial CT images of the chest were performed following the intravenous administration of contrast to evaluate the pulmonary arteries. Maximal intensity projection images were also obtaine d. A dose lowering technique was utilized adhering to the principles of ALARA. COMPARISON STUDY: None. FINDINGS: Normal caliber thoracic aorta with no evidence for dissection. The heart is normal in size. Small bilateral pleural effusions. No significant pericardial effusion. Rest motion artifact results in nondiagnostic evaluation of a few the bilateral lower lobe segmental and subsegmental pulmonary a rteries. Otherwise, the remaining pulmonary arteries show no filling defects to suggest pulmonary emb olus. Small of soft tissue density within the anterior mediastinum without an associated mass. Theref ore, this favors residual thymic tissue. No mediastinal hilar lymphadenopathy. Limited views of the u pper abdomen demonstrate a normal liver, spleen, and adrenal glands. The esophagus is normal in calib er. The thyroid gland enhances normally. No fractures within the visualized osseous structures. No pn eumothorax. The central airways are patent. The lungs are clear. IMPRESSION: 1. No evidence for pulmonary embolus with limitations as described above. 2. Small bilateral pleural effusions. ACT 112: Negative or not required by law. Electronically signed by: Aurelio Jenkins M.D. 01/01/2020 12:21 PM
[2020-01-01] MEDS: IBUPROFEN 600 MG TAB PO PRN (16:56)
[2020-01-01] MEDS: SENNA 8.6 MG TAB PO SCH (17:01)
--- NOTE | 2020-01-01 21:05 | Billing Data ---
Date of Service January 01, 2020 Coding Level of Care Code 09867 Inpt Consult Level 3
[2020-01-01] MEDS: METOPROLOL SUCC 25MG EXT REL TAB PO SCH (21:13)
[2020-01-01] MEDS: ACETAMINOPHEN 325 MG TAB PO PRN (21:16)
--- NOTE | 2020-01-01 22:18 | Electrocardiogram Report ---
Test Reason : Blood Pressure : / mmHG Vent. Rate : 065 BPM Atrial Rate : 065 BPM P-R Int : 126 ms QRS Dur : 072 ms QT Int : 416 ms P-R-T Axes : 036 063 068 degrees QTc Int : 432 ms Normal sinus rhythm with sinus arrhythmia Normal ECG When compared with ECG of 29-DEC-2019 08:54, No significant change was found Confirmed by Alfred Hung ([id number]) on 01/01/2020 10:18:24 PM Referred By: REFERRED SELF Confirmed By:Alfred Hung
--- NOTE | 2020-01-02 06:20 | Obstetrical Progress Note ---
Date of Service <Edgar Rodriguez MD - Last Filed: 01/02/20 07:10> January 02, 2020 Assessment & Plan <Edgar Rodriguez MD - Last Filed: 01/02/20 07:10> (1) Pre-eclampsia, severe, delivered with condition: Ronald is a 29yo with severe preeclampsia. Stable currently. - Denies persistent PIH symptoms - Hospitalist consultation--per recs, was switched from labetalol PO to metoprolol 25mg PO BID - Will go home on this dose when discharged - BPs well controlled overall with few outliers into 140s/80s - If BPs continue to stay well controlled this morning, may go home today with close follow-up with PCP (2-3 days) (2) HTN (hypertension): Hypertension type: unspecified Qualified Code(s): I10 - Essential (primary) hypertension (3) Gestational diabetes: Subjective <Edgar Rodriguez MD - Last Filed: 01/02/20 07:10> Ronald is a 29yo who has had severe preeclampsia complicating her period. She has been doing well with no symptoms for past few days, but her BPs have continued to be elevated. She is now better controlled and continues to report no symptoms related to this. Labs have trended towards normal. Overall doing well this morning. ROS negative as below. Constitutional: no fever, no chills and no fatigue No vision changes Respiratory: no cough, no dyspnea, no dyspnea on exertion and no pain on inspiration Cardiovascular: no chest pain and no palpitations Breast: no problem reported Gastrointestinal: no abdominal pain, no nausea, no vomiting, no constipation and no diarrhea/loose stools Genitourinary (female): no dysuria, no urinary frequency, no urinary urgency, no urinary incontinence and no flank pain Physical Exam <Edgar Rodriguez MD - Last Filed: 01/02/20 07:10> General: Alert, oriented. No acute distress. Cardiac: Regular rate and rhythm. No murmurs. Respiratory: Clear to auscultation bilaterally a/p, no wheezes/rales/rhonchi. No increased work of breathing. Symmetrical chest rise. No respiratory distress. Abdomen: Soft, nontender, nondistended. Bowel sounds present. Uterus: Uterine fundus firm, palpable 4 cm below umbilicus. Lower Extremities: No lower extremity edema or swelling. No deep calf pain. Georgie's negative bilaterally. Results & Data ([facility]) <Edgar Rodriguez MD - Last Filed: 01/02/20 07:10> Vital Signs (Past 12 Hours) Vital Signs Temp Pulse Resp BP BP Pulse Ox 01/02/20 03:50 36.7 C 66 18 148/85 H 142/86 H 96 01/01/20 23:25 36.8 C 72 18 134/84 96 01/01/20 21:11 66 133/84 01/01/20 19:25 36.9 C 80 16 137/84 <Odette West DO - Last Filed: 01/02/20 07:55> Co-Signing Physician Notes Resident Physician Supervision Note: I was present with Dr. Champion during the history and exam. I discussed the case with the resident and agree with the findings and plan as documented in the note. Any exceptions or clarifications are listed here: BP has improved with switch from labetalol to metoprolol. Appreciate Hospitalist eval/management. Patient feeling well, will plan for DC home today if BP stays stable. Patient agreeable . She will need to see either OB or PCP for BP check outpatient within 1 week. She sees [facility] in [place], and plans to follow up with them. Documented By: Odette West DO Resident Activity Tracking <Edgar Rodriguez MD - Last Filed: 01/02/20 07:10> Resident Involvement: Resident Care Provided Care Provided: OB Delivery
[2020-01-02] MEDS: SENNA 8.6 MG TAB PO SCH (08:57)
[2020-01-02] MEDS: METOPROLOL SUCC 25MG EXT REL TAB PO SCH (08:57)
--- NOTE | 2020-01-02 19:28 | Hospitalist Progress Note ---
Date of Service January 02, 2020 Assessment & Plan (1) HTN (hypertension): see consult note 12/31 for more depth of detail - but improving nicely and quite safe for home on metoprolol 25mg bid - f/u BP at home ~bid randomly and then f/u in office next week. discussed high probability with how her BP improved over last 24hrs that she might actually be able to be weaned down on meds fairly quickly. PCP next week, stable for home from medical team perspective Admission and Anticipated Discharge Date Admission Date: December 29, 2019 Subjective feeling better, BP doing better, far less stressed about situation generally feeling ok. appreciative of care Review of Systems Review of Systems: All systems reviewed & are unremarkable except as noted in HPI & below Physical Exam Physical Exam: gen aaox3 pleasant nad heent nc at mmm breathing unlabored no accessory muscles good effort skin no rashes no pallor or icterus neuro no focal deficits Results & Data Results & Data ([facility]) Vital Signs (Past 12 Hours) Vital Signs Temp Pulse Pulse Resp BP BP Pulse Ox 01/02/20 12:05 87 140/89 01/02/20 11:32 98.2 F 84 69 18 136/88 142/86 H 96 01/02/20 08:15 98.2 F 84 18 136/88 PG Care Time/CCT Total # of Minutes Spent Total Time Spent with Patient: Total time spent is greater than 50% in coordination of care (as documented) at patient's floor/unit and/or counseling patient: Coding Level of Care Code 26008 Subseq Hosp Care Lvl 2 Diagnoses HTN (hypertension) I10 Hypertension type: unspecified (1) HTN (hypertension) Hypertension type: unspecified Qualified Code(s): I10 - Essential (primary) hypertension
--- NOTE | 2020-01-13 08:17 | Discharge Summary ---
Date of Service January 13, 2020 Hospital Course (1) Preeclampsia in period: Patient was re-admitted 5 days' after delivery with elevated BPs. Diagnosed with preeclampsia, severe. Rec'd magnesium x 24h. Labs trended towards normal. BPs were difficult to control with labetalol, consulted internal medicine for assistance with BP control. Switched to metoprolol. DC home 01/01 to follow up with PCP within 1 week. Coding Level of Care Code D/C Day Management <30 mins Diagnoses Preeclampsia in period O14.95
== END 2020-01-02 12:30 | disposition home or self-care (01) | DRG 776 ==
LOC: ED 08:05 → 4S1 09:53 → 4S2 12-30 15:55
DX: O14.15 Severe pre-eclampsia, complicating the puerperium

== ENCOUNTER 2021-09-15 17:38 | Inpatient (IN) ==
[2021-09-15] MEDS ORDERED: OXYTOCIN 30 UNITS/500 ML BAG IV PRN ×2 (19:08→19:11)
[2021-09-15 19:21] LABS: Basophils # (auto) 0.02 K/uL (0-0.2); Basophils % (auto) 0.2 %; Eosinophils # (auto) 0.19 K/uL (0-0.50); Eosinophils % (auto) 1.5 %; Hematocrit (blood only) 36.6 % (34.1-44.9); Hemoglobin 12.1 g/dl (12.0-16.0); Immature Granulocytes # (auto) 0.05 K/uL (0.00-0.02); Immature Granulocytes % (auto) 0.4 %; Lymphocytes # (auto) 2.27 K/uL (1.2-3.4); Lymphocytes % (auto) 17.8 %; Mean Corpuscular Hemoglobin 28.3 pg (25.0-34.0); Mean Corpuscular Hgb Conc 33.1 g/dL (32.0-36.0); Mean Corpuscular Volume 85.5 fL (80.0-100.0); Mean Platelet Volume 11.9 fL (9.4-12.3); Monocytes # (auto) 0.61 K/uL (0.24-0.82); Monocytes % (auto) 4.8 %; Neutrophils # (auto) 9.63 K/uL (1.4-6.5); Neutrophils % (auto) 75.3 %; Platelet Count 192 K/uL (130-400); RDW Coefficient of Variation 15.1 % (11.5-14.5); RDW Standard Deviation 46.7 fL (36.4-46.3); Red Blood Count 4.28 M/uL (3.93-5.22); White Blood Count 12.77 K/ul (4.8-10.8)
[2021-09-15 19:59] LABS: Alanine Aminotransferase 13 U/L (7-52); Albumin Level 3.5 gm/dl (3.4-5.0); Alkaline Phosphatase 115 U/L (34-104); Anion Gap 10 (3-11); Aspartate Aminotransferase 19 U/L (13-39); BUN Creatinine Ratio 21.4 (10-20); Bilirubin,Total 0.4 mg/dl (0.2-1.0); Blood Urea Nitrogen 9 mg/dl (6-23); Carbon Dioxide 20 mmol/L (21-32); Chloride 106 mmol/L (98-107); Creatinine Clr Calc Pharmacy 256.3 ml/min; Est GFR (African American) > 150.0 ml/min; Est GFR (Non-African American) 134.7 ml/min; Globulin 3.5 gm/dl (2.5-4.0); Glucose 86 mg/dl (70-99(Fasting)); Potassium 3.8 mmol/L (3.5-5.1); Sodium 136 mmol/L (136-145)
[2021-09-15 20:12] LABS: Creatinine Urine Random 41.4 mg/dl; Protein Creatinine Ratio Urine 0.2 (0-0.2); Total Protein Urine Random 6.4 mg/dl (0-11.9)
--- NOTE | 2021-09-15 20:28 | History & Physical Report ---
Date of Service September 15, 2021 Assessment & Plan (1) Gestational hypertension without significant proteinuria during in third trimester, antepartum: Plan: IUP at 37 4/7 weeks with elevated BP's since 1600 today. They are all high enough to make diagnosis of gestational hypertension superimposed on chronic hypertension diagnosis.Her BP's so far this have been normal with medications. PIH labs are all normal. Given she is now 37 4/7 weeks gestation with what also appears to be poorly controlled GDM and gestational HTN, we will begin IOL tonight. cervical balloon will be placed and low dose pitocin begun once there is a labor room available. anticipate vaginal . Admission and Anticipated Discharge Date Admission Date: September 15, 2021 History of Present Illness Primary Care Provider: Any Boudreaux DO Patient is a 31 yo female EDC 09/20/21 who presents following her OB visit for evaluatoion of elevated bllood pressures in the office. urine was negative for protein. She was feeling flushed at the visit but otherwise no PIH symptoms. Since arriving in L&D she has had a mild headache but she attributes it to not eating or drinking for over 4 hours. baby is active and she has been having some mild cramping. has been complicated by GDM and most recent AC was 92%tile 1 week ago. She also has been diagnosed with chronic HTN for which she was on meds prior to this . Her prior was also complicated by the development of PET . GBS -negative Allergies Allergy/AdvReac Type Severity Reaction Status Date / Time No Known Drug Allergies Allergy Unknown Verified 09/15/21 19:37 Home Medications Medication Instructions Recorded Confirmed Type prenat.vits,[place]inee,iek-dxqd-gwazu 1 tab PO DAILY 02/27/21 09/15/21 History acetone (urine) test (Ketostix) #100 ea 03/22/21 09/12/21 Rx blood sugar diagnostic (OneTouch #360 ea 03/22/21 09/12/21 Rx Verio test strips) lancets 30 gauge (OneTouch Delica #360 ea 03/22/21 09/12/21 Rx Plus Lancet) aspirin 81 mg tablet,delayed 81 mg PO DAILY 04/25/21 09/15/21 History release Patient History Medical History (Updated 09/15/21 @ 20:47 by Daniela London MD, FACOG) COVID-19 (~08/10/21) H/O infectious mononucleosis HTN (hypertension) Obesity affecting Pre-eclampsia Surgical History No pertinent past surgical history Status post vaginal delivery Family History (Updated 02/27/21 @ 14:10 by Aliyah BO, MARIA M) Father Hypertension Stroke Grandfather (Maternal) Diabetes Myocardial infarction Coronary heart disease Lung cancer Grandfather (Paternal) Myocardial infarction Coronary heart disease Brother Hypertension Denies family history of Ovarian cancer Prostate cancer Breast cancer Colorectal cancer Social History (Updated 02/27/21 @ 14:10 by Aliyah BO, MARIA M) Smoking Status: Former smoker Tobacco Type: Cigarettes Age Quit Using Tobacco: 26; Years Smoked: 10; Second Hand Exposure: No; Hx Alcohol Use: No Hx Substance Use: No Preferred Language: Macanese Communication Ability: Effective Visual Impairment: No Limitations Hearing Ability: Normal Registered Massage Therapist Required: No Beliefs That Will Affect Care: None marital status: marital status details: Anjel Messer (34) [phone] Current Living Situation: Spouse and Family Current Living Situation Comment: and daughter current occupational status: employed current occupation: [employer] How many Children do You have: 1 Feels Safe at Home: Yes Safety Concerns: Feels Safe At This Time Childhood Exposure to Second-Hand Smoke: No caffeine: Yes (Coffee x 1 today.) during the past year weight has: remained stable Dental Care, Regularly: No Physical Activity Frequency: Daily Seatbelt Use: always Sunscreen Use: Yes Assistive Devices: None Review of Systems All systems reviewed & are unremarkable except as noted in HPI & below Physical Exam Respiratory: normal respiratory effort, lungs clear to auscultation Cardiovascular: RRR, no murmur, no edema Psychiatric: A+Ox3, euthymic affect Genitourinary: OB Exam Abdomen: + vertex, + estimated weight (7-8 p ounds) and + regular contractions (mild) Manual OB Exam: + cervical dilation (closed), + cervical effacement 50% and + station high (-3) OB Exam Monitor Tracing: + external FHT monitor used, + external uterine monitor used, + category I and + normal FHT variability Results & Data ([facility]) Vital Signs (Past 12 Hours) Vital Signs Pulse Resp BP 09/15/21 19:01 18 09/15/21 19:39 101 H 156/93 H 09/15/21 19:25 109 H 158/95 H 09/15/21 19:09 109 H 167/95 H 09/15/21 18:56 103 H 160/105 H 09/15/21 18:15 115 H 134/95 09/15/21 18:25 105 H 159/109 H Code Status & VTE Plan VTE Prophylaxis Plan VTE Prophylaxis will be ordered: No Coding Level of Care Code None Diagnoses Gestational hypertension without significant proteinuria during in third trimester, antepartum O13.3 CPT Codes Misx Procedure Codes - 67430 Placement of cervical dilator: 41529 Placement of cervical dilator ([id number])
[2021-09-15] MEDS ORDERED: ACETAMINOPHEN 325 MG TAB PO PRN (22:31)
[2021-09-15] MEDS ORDERED: ACETAMINOPHEN 325 MG TAB ONE (23:34)
--- NOTE | 2021-09-15 23:40 | Obstetrical Progress Note ---
Date of Service September 15, 2021 Assessment & Plan (1) Gestational hypertension without significant proteinuria during in third trimester, antepartum: Plan: will begin induction with cervical balloon and low dose pitocin anticipate vaginal Admission and Anticipated Discharge Date Admission Date: September 15, 2021 Subjective now has persistent headache. no visual headaches. BP's continue to be consistently elevated. labor room now ready and patient transferred for placement of cervical balloon and pitocin. Review of Systems Review of Systems: All systems reviewed & are unremarkable except as noted in HPI & below Physical Exam Constitutional: WD/WN, vitals as above Psychiatric: A+Ox3, euthymic affect Genitourinary: Manual OB Exam: + cervical dilation (closed), + cervical effacement 50% and + station high (-3) OB Exam Monitor Tracing: + external FHT monitor used, + external uterine monitor used, + category I and + normal FHT variability cervical balloon placed in os with stylet. 40 cc sterile water placed in the balloon and placed on traction. patient tolerated procedure well. Results & Data ([facility]) Vital Signs (Past 12 Hours) Vital Signs Pulse Resp BP 09/15/21 19:01 18 09/15/21 23:32 86 144/86 H 09/15/21 21:26 96 H 142/81 H 09/15/21 21:11 81 141/90 H 09/15/21 20:55 85 147/88 H 09/15/21 20:40 103 H 154/96 H 09/15/21 20:26 96 H 152/90 H 09/15/21 20:09 98 H 139/95 09/15/21 19:39 101 H 156/93 H 09/15/21 19:25 109 H 158/95 H 09/15/21 19:09 109 H 167/95 H 09/15/21 18:56 103 H 160/105 H 09/15/21 18:15 115 H 134/95 09/15/21 18:25 105 H 159/109 H PG Care Time/CCT Total # of Minutes Spent Total Time Spent with Patient: Total time spent is greater than 50% in coordination of care (as documented) at patient's floor/unit and/or counseling patient: Coding Level of Care Code None Diagnoses Gestational hypertension without significant proteinuria during in th ird trimester, antepartum O13.3
[2021-09-15] MEDS ORDERED: BUTORPHANOL TARTRATE 1 MG/ML VIAL IV PRN (23:45)
[2021-09-15] MEDS: LACTATED RINGER'S 1,000 ML IV PRN (23:50)
[2021-09-16] MEDS: LACTATED RINGER'S 1,000 ML IV PRN ×3 (07:02→16:28)
--- NOTE | 2021-09-16 07:59 | Labor Progress Brief Note ---
Date of Service September 16, 2021 Subjective balloon fell out at 0430 and pitocin induction has continued some cramping now, some contractions are stronger Review of Systems All systems reviewed & are unremarkable except as noted in HPI & below Assessment & Plan (1) Gestational hypertension without significant proteinuria during in third trimester, antepartum: Plan: BP's dropped overnight to normotensive range but have started to rise again this morning. continue pitocin induction vertex too high to AROM just yet Admission and Anticipated Discharge Date Admission Date: September 15, 2021 Physical Exam Constitutional: WD/WN, vitals as above Psychiatric: A+Ox3, euthymic affect Genitourinary: OB Exam Abdomen: + regular contractions (every 4-5 minutes- mild) Manual OB Exam: + cervical dilation (2-3 cm), + cervical effacement 60% and + station (-3) OB Exam Monitor Tracing: + external FHT monitor used, + external uterine monitor used, + category I and + normal FHT variability Results & Data ([facility]) Vital Signs (Past 12 Hours) Vital Signs Temp Pulse Resp BP 09/16/21 07:26 91 H 139/94 09/16/21 06:24 80 136/81 09/16/21 05:24 84 142/88 H 09/16/21 04:23 83 136/82 09/16/21 03:25 98.1 F 88 18 124/65 09/16/21 01:10 96 H 114/71 09/16/21 00:10 88 118/71 09/15/21 23:32 97.5 F L 86 18 144/86 H 09/15/21 21:26 96 H 142/81 H 09/15/21 21:11 81 141/90 H 09/15/21 20:55 85 147/88 H 09/15/21 20:40 103 H 154/96 H 09/15/21 20:26 96 H 152/90 H 09/15/21 20:09 98 H 139/95 Coding Level of Care Code None Diagnoses Gestational hypertension without significant proteinuria during in third trimester, antepartum O13.3
[2021-09-16] MEDS ORDERED: fentaNYL citrate 100 MCG/2 ML VIAL ONE (11:39)
[2021-09-16] MEDS ORDERED: SODIUM CHLORIDE 0.9% INJ 10 ML VIAL ONE (11:39)
[2021-09-16] MEDS ORDERED: ePHEDrine sulfate 50 MG/ML AMP ONE (11:39)
[2021-09-16] MEDS ORDERED: LIDOCAINE 2%/EPINEPHRINE 1:200,000 20 ML SDV ONE (11:40)
[2021-09-16] MEDS ORDERED: BUPIVACAINE 0.25% 30 ML VIAL ONE ×2 (11:40→17:23)
[2021-09-16] MEDS ORDERED: fentaNYL 2MCG/ML ROPIVACAINE 1.25MG/ML 100 ML BAG EPI ONE (11:41)
--- NOTE | 2021-09-16 11:41 | Labor Progress Brief Note ---
Date of Service September 16, 2021 Subjective noting contractions. no s/s pet Assessment & Plan (1) Gestational hypertension without significant proteinuria during in third trimester, antepartum: (2) at 37 weeks gestation or greater with abnormal testing: (3) Gestational diabetes mellitus (GDM): Plan discussed plans at this point. Can continue to expectantly manage but really need to break water to get labor going. discussed epidural now and then another try with relaxed pelvis. She is agreeable. fetus category one. Pressures are stable. will check blood sugars hourly. Admission and Anticipated Discharge Date Admission Date: September 15, 2021 Physical Exam Physical Exam: cx--2+/50/-3 attempted arom but very uncomfortable for patient efm--140s wtih mod variability, accels to 160s no decels toco--q2-3, pit at 16 Results & Data ([facility]) Vital Signs (Past 12 Hours) Vital Signs Temp Pulse Resp BP 09/16/21 11:28 93 H 166/89 H 09/16/21 09:16 20 09/16/21 09:16 36.7 C 20 09/16/21 09:39 103 H 139/89 09/16/21 09:11 91 H 135/94 09/16/21 07:26 91 H 139/94 09/16/21 06:24 80 136/81 09/16/21 05:24 84 142/88 H 09/16/21 04:23 83 136/82 09/16/21 03:25 36.7 C 88 18 124/65 09/16/21 01:10 96 H 114/71 09/16/21 00:10 88 118/71 Coding Level of Care Code None Diagnoses Gestational hypertension without significant proteinuria during in third trimester, antepartum O13.3 at 37 weeks gestation or greater with abnormal testing Gestational diabetes mellitus (GDM) O24.419
--- NOTE | 2021-09-16 12:37 | Anesthesiology Consultation ---
Date of Service September 16, 2021 Assessment & Plan Chart Review Chart Review: Acceptable Risk for Labor Epidural Consults Requested none History Height/Weight Height: 5 ft 7 in Weight: 120.656 kg Allergies Allergy/AdvReac Type Severity Reaction Status Date / Time No Known Drug Allergies Allergy Unknown Verified 09/15/21 19:37 Medications Home Medications Medication Instructions Recorded Confirmed Last Taken prenat.vits,[place],[id number] 1 tab PO DAILY 02/27/21 09/15/21 09/14/21 acetone (urine) test (Ketostix) #100 ea 03/22/21 09/12/21 Unknown blood sugar diagnostic (OneTouch #360 ea 03/22/21 09/12/21 Unknown Verio test strips) lancets 30 gauge (OneTouch Delica #360 ea 03/22/21 09/12/21 Unknown Plus Lancet) aspirin 81 mg tablet,delayed 81 mg PO DAILY 04/25/21 09/15/21 09/15/21 release Active Medications Generic Name Dose Route Start Last Admin Trade Name Tonya PRN Reason Stop Dose Admin Acetaminophen 650 mg 09/15/21 22:31 09/16/21 05:10 Acetaminophen 325 Mg Tab PO 10/15/21 22:30 650 mg Q4H PRN Administration Headache or Pain Lactated Ringer's 1,000 mls @ 125 mls/hr 09/15/21 19:08 09/16/21 12:37 Lr IV 09/17/21 19:07 125 mls/hr .Q8H PRN Infusion L&D Protocol Protocol Oxytocin 30 units in 500 mls @ 14 mls/hr 09/15/21 19:11 09/16/21 09:14 Pitocin IV 09/17/21 19:10 0.84 units/hr .Q24H PRN 14 mls/hr Labor Induction/Augmentation Titration Protocol 0.84 UNITS/HR Past Medical History Medical History (Updated 09/16/21 @ 11:39 by Citlalli Avelar MD, FACOG) COVID-19 (~08/10/21) H/O infectious mononucleosis HTN (hypertension) Obesity affecting Pre-eclampsia Past Family History Family History (Updated 02/27/21 @ 14:10 by Aliyah BO RN) Father Hypertension Stroke Grandfather (Maternal) Diabetes Myocardial infarction Coronary heart disease Lung cancer Grandfather (Paternal) Myocardial infarction Coronary heart disease Brother Hypertension Denies family history of Ovarian cancer Prostate cancer Breast cancer Colorectal cancer Past Surgical History Surgical History No pertinent past surgical history Status post vaginal delivery Social History Smoking Status: Former smoker Hx Alcohol Use: No Hx Substance Use: No Physical Exam Vital Signs Last Vital Signs Temp 36.7 C 09/16/21 09:16 Pulse 96 H 09/16/21 12:36 Resp 20 09/16/21 09:16 BP 101/59 L 09/16/21 12:36 Pulse Ox 98 09/16/21 12:32 Testing Laboratory Results 09/15/21 19:13 09/15/21 19:13 Blood Type O Positive 09/15/21 19:14 Antibody Screen NEGATIVE 09/15/21 19:14
[2021-09-16] MEDS ORDERED: NALOXONE HCL 1 MG in SODIUM CHLORIDE 0.9% 1000ML 1,000 ML IV PRN (12:39)
[2021-09-16] MEDS ORDERED: NALBUPHINE HCL INJ 10 MG/ML AMP IV PRN (12:39)
[2021-09-16] MEDS ORDERED: diphenhydrAMINE 50 MG/ML VIAL IV PRN (12:39)
[2021-09-16] MEDS ORDERED: ePHEDrine sulfate 50 MG/ML AMP IV PRN (12:39)
[2021-09-16] MEDS ORDERED: NALOXONE HCL 0.4 MG/1 ML VIAL/CARP IV PRN (12:39)
[2021-09-16] MEDS ORDERED: fentaNYL 2MCG/ML ROPIVACAINE 1.25MG/ML 100 ML BAG EPI PRN (12:39)
--- NOTE | 2021-09-16 13:52 | Labor Progress Brief Note ---
Date of Service September 16, 2021 Subjective comfortable after epidural Assessment & Plan (1) at 37 weeks gestation or greater with abnormal testing: (2) Gestational hypertension without significant proteinuria during in third trimester, antepartum: (3) Gestational diabetes mellitus (GDM): Plan continue current management, increase pit, positioning change. fetus category one Will attempt arom again in a bit. Admission and Anticipated Discharge Date Admission Date: September 15, 2021 Physical Exam Physical Exam: cx--3-4/50/-3, head applied to cervix but all is very fercho toco--q2-4min, pit at 20 efm--150s wtih mod variability, accels present, +scalp stim, had some decels just after epidural but resolved with positioning bps corrected with epidural multiple attempts at arom and unable to perform bsus--confirms cephalic presentation , op currently, fluid preceeding the head Results & Data ([facility]) Vital Signs (Past 12 Hours) Vital Signs Temp Pulse Resp BP Pulse Ox 09/16/21 13:47 95 H 98 09/16/21 13:46 92 H 108/66 09/16/21 13:42 97 09/16/21 13:42 91 H 09/16/21 13:42 95 H 94 09/16/21 13:37 92 H 100 09/16/21 13:32 97 H 99 09/16/21 13:31 88 129/73 09/16/21 13:27 100 H 99 09/16/21 13:22 95 H 98 09/16/21 13:17 97 H 98 09/16/21 13:16 110 H 116/58 L 09/16/21 13:12 101 H 97 09/16/21 13:07 96 H 99 09/16/21 13:02 93 H 99 09/16/21 12:57 103 H 98 09/16/21 12:58 100 H 104/59 L 09/16/21 12:52 93 H 100 09/16/21 12:47 91 H 96 09/16/21 12:46 94 H 97/58 L 09/16/21 12:43 91 H 103/59 L 09/16/21 12:42 90 97 09/16/21 12:37 94 H 97 09/16/21 12:36 96 H 101/59 L 09/16/21 12:34 102 H 96/51 L 09/16/21 12:32 98 09/16/21 12:32 106 H 09/16/21 12:32 98 H 120/68 09/16/21 12:30 92 H 109/60 09/16/21 12:27 105 H 99 09/16/21 12:28 103 H 117/70 09/16/21 12:26 96 H 131/85 09/16/21 12:22 96 H 98 09/16/21 12:17 96 H 100 09/16/21 12:12 100 H 99 09/16/21 11:28 93 H 166/89 H 09/16/21 09:16 20 09/16/21 09:16 36.7 C 20 09/16/21 09:39 103 H 139/89 09/16/21 09:11 91 H 135/94 09/16/21 07:26 91 H 139/94 09/16/21 06:24 80 136/81 09/16/21 05:24 84 142/88 H 09/16/21 04:23 83 136/82 09/16/21 03:25 36.7 C 88 18 124/65 Coding Level of Care Code None Diagnoses at 37 weeks gestation or greater with abnormal testing Gestational hypertension without significant proteinuria during in third trimester, antepartum O13.3 Gestational diabetes mellitus (GDM) O24.419
[2021-09-16] MEDS ORDERED: NURSING L&D Epidural Breakthrough Pain Update ONE (17:10)
[2021-09-16] MEDS ORDERED: oxyCODONE/ACETAMINOPHEN 5mg/325mg TAB PO PRN (18:28)
[2021-09-16] MEDS ORDERED: OXYTOCIN 30 UNITS/500 ML BAG IV PRN (18:28)
[2021-09-16] MEDS ORDERED: ACETAMINOPHEN 325 MG TAB PO PRN (18:28)
[2021-09-16] MEDS ORDERED: bisacodyL 10 MG SUPP PR PRN (18:28)
[2021-09-16] MEDS ORDERED: BENZOCAINE 20% AER SPR 82.5 GM CAN EXT PRN (18:28)
[2021-09-16] MEDS ORDERED: DIPHTHERIA/TETANUS/PERTUSSIS 0.5 ML SYR/VIAL IM ONE (18:28)
[2021-09-16] MEDS ORDERED: HYDROCORTISONE ACETATE 25 MG SUPP PR PRN (18:28)
[2021-09-16] MEDS ORDERED: ceFAZolin 1000MG 1,000 MG/7.5 ML SYR IV ONE (18:29)
--- NOTE | 2021-09-16 18:34 | Delivery Summary ---
Vaginal Delivery Summary Date of Service September 16, 2021 Vaginal Delivery Summary and 2nd Degree LAC Pre-operative Diagnosis: at 37 5/7 weeks A1gdm gestational htn overlying chronic hypertension Post-operative Diagnosis: same Procedure: epidural arom second degree laceration and repair EBL: 300cc Anesthesia: epidural Procedure: The patient was admitted for induction for gestational hypertension overlying chtn. Labs were all normal and the patient was symptomatic. The patient had a helton bulb and low dose pitocin overnight. Fell out at 4am and pitocin increased. She underwent an epidural and then srom for copious clear fluid. She progressed to c/c/+1. The patient pushed for 2 contractions to deliver a viable female in hernando position. The nose and mouth were bulb suctioned on the perineum and the rest of the infant was then delivered without difficulty. The baby was vigorous. The nose and mouth were again bulb suctioned and the was placed in the maternal abdomen for drying and attention. Cord was clamped and cut at one minute of life. Cord blood and segment obtained. Placenta delivered by manual extraction as after 15 minutes and uterine massage it was not coming. Several sweeps were needed to removed a nd I felt all was removed at end. Cervix/sulci/rectum were intact. A second degree perineal laceration was repaired in the normal standard fashion. Hemostasis obtained with dilute pitocin and fundal massage. Apgars were 8/9. Mother and baby doing well at the end of the delivery[place] [facility] [place] Charge Delivery Type Details: and 2nd Degree LAC
--- NOTE | 2021-09-16 18:43 | Anesthesia Procedure Note ---
Date of Service September 16, 2021 Anesthesia Post Epidural Note Vital Signs Vital Signs: Temp Pulse Resp BP Pulse Ox 36.8 C 112 H 20 157/85 H 99 09/16/21 17:36 09/16/21 18:29 09/16/21 17:36 09/16/21 18:29 09/16/21 18:12 Notes Mental Status: alert / awake / arousable Nausea / Vomiting: adequately controlled Pain: adequately controlled Airway Patency, RR, SpO2: stable & adequate BP & HR: stable & adequate Hydration State: stable & adequate Neuraxial Anesthesia: was administered and sensory block is resolving Anesthetic Complications: no major complications apparent and Pt Satisfied with anesthetic care Epidural: Removed without complications and With tip intact
[2021-09-16] MEDS: IBUPROFEN 600 MG TAB PO PRN (20:29)
[2021-09-16] MEDS: DOCUSATE SODIUM 100 MG CAP PO SCH (20:30)
[2021-09-17 07:55] LABS: Hematocrit (blood only) 32.5 % (34.1-44.9); Hemoglobin 10.6 g/dl (12.0-16.0)
[2021-09-17] MEDS: PRENATAL VITAMIN 1 TAB PO SCH (08:37)
[2021-09-17] MEDS: DOCUSATE SODIUM 100 MG CAP PO SCH ×2 (08:37→20:45)
[2021-09-17] MEDS: IBUPROFEN 600 MG TAB PO PRN (08:37)
--- NOTE | 2021-09-17 09:00 | Obstetrical Progress Note ---
Date of Service September 17, 2021 Assessment & Plan (1) Normal vaginal delivery: (2) History of pre-eclampsia: (3) Chronic hypertension during : Plan Patient has some mildly elevated blood pressures that have been stable overnight, not in severe range. She has no s/s of pet. Will continue to monitor closely. If pressures drift up, plan to start labetolol. Discussed their fears of the pp period and something happening again. Unfortunately, no way to be able to note. PLan on seeing closely in the PP period--one day after d/c and then again a couple of days later so we can have close f/u. Baby with jaundice and under the light. Day #:: 1 Subjective Ambulation: ambulating normally Voiding: no voiding problems Passing Gas:: Yes Diet Tolerance:: regular diet Lochia:: Small Feeding Type:: breast feeding Paitent feels well. Notes no s/s of pet--denies easton/vision changes/ruq pain. Notes some mild swelling in her feet. Her blood pressures have been mostly 150s/90s. A rare 160 systolic and had not had a diastolic over 100. Patient is tearful this am as she is very scared of what happened last time with blood pressures will happen again. Quite understandable. Physical Exam Constitutional WD/WN, vitals as above Respiratory normal respiratory effort, lungs clear to auscultation Cardiovascular RRR, no murmur, no edema Extremities: + edema (tr); no calf tenderness Gastrointestinal (Abdomen) soft, nt, nd, no ruq pain, ff/nt at u Psychiatric A+Ox3, euthymic affect Results & Data ([facility]) Vital Signs (Past 12 Hours) Vital Signs Temp Pulse Resp BP Pulse Ox O2 Del Method 09/17/21 03:48 36.7 C 85 16 160/97 H 97 Room Air 09/16/21 23:06 36.9 C 89 16 148/97 H 97 Room Air 09/16/21 21:27 37.3 C 120 H 18 162/97 H
[2021-09-17 17:18] LABS: Hematocrit (blood only) 32.1 % (34.1-44.9); Hemoglobin 10.5 g/dl (12.0-16.0); Mean Corpuscular Hemoglobin 28.6 pg (25.0-34.0); Mean Corpuscular Hgb Conc 32.7 g/dL (32.0-36.0); Mean Corpuscular Volume 87.5 fL (80.0-100.0); Mean Platelet Volume 11.6 fL (9.4-12.3); Platelet Count 160 K/uL (130-400); RDW Coefficient of Variation 15.1 % (11.5-14.5); RDW Standard Deviation 48.6 fL (36.4-46.3); Red Blood Count 3.67 M/uL (3.93-5.22); White Blood Count 10.71 K/ul (4.8-10.8)
[2021-09-17 17:39] LABS: Albumin Level 3.1 gm/dl (3.4-5.0); BUN Creatinine Ratio 19.6 (10-20); Bilirubin,Total 0.3 mg/dl (0.2-1.0); Calcium 8.7 mg/dl (8.5-10.1); Creatinine Clr Calc Pharmacy 192.2 ml/min; Est GFR (Non-African American) 122.5 ml/min; Potassium 3.9 mmol/L (3.5-5.1); Total Protein 6.1 gm/dl (6.0-8.3)
[2021-09-17] MEDS: LABETALOL HCL 100 MG TAB PO SCH (17:41)
[2021-09-17] MEDS ORDERED: bisacodyL 5 MG TABEC PO SCH (20:00)
[2021-09-18] MEDS: IBUPROFEN 600 MG TAB PO PRN (05:24)
--- NOTE | 2021-09-18 06:14 | Obstetrical Progress Note ---
Date of Service <Gabrielle Miranda - Last Filed: 09/18/21 07:14> September 18, 2021 Assessment & Plan <Gabrielle Miranda - Last Filed: 09/18/21 07:14> (1) Normal vaginal delivery: (2) Chronic hypertension during : Plan continue OOB, ambulation, diet as tolerated Continue to monitor blood pressures. Continue labetalol. <Citlalli Avelar MD, FACOG - Last Filed: 09/18/21 07:18> (1) Normal vaginal delivery: (2) Chronic hypertension during : Subjective <Gabrielle Miranda - Last Filed: 09/18/21 07:14> Ronald is a 31 y/o female who is now PPD # 2 following vaginal delivery at 35 5/7 weeks. Reports feeling well overall this morning. Mild abdominal cramping & pain well managed on analgesics. Voiding. Tolerating meals overnight and able to ambulate some. Is passing gas and and having bowel movements. Some persistent lochia with some improvement this morning. Breast/Bottle feeding. Review of Systems Denies fever, chills, sweats Denies shortness of breath, difficulty breathing, chest pain, palpitations, chest pressure. Denies breast pain. Denies dysuria. Denies headache or changes in vision. Physical Exam <Gabrielle Miranda - Last Filed: 09/18/21 07:14> General: Alert, oriented. No acute distress. Cardiac: Regular rate and rhythm, no murmurs/rubs/gallops. Respiratory: Clear to auscultation bilaterally a/p, no wheezes/rales/rhonchi. No increased work of breathing. Symmetrical chest rise. No respiratory distress. Abdomen: Soft, nontender, nondistended. Bowel sounds present. No RUQ pain. Uterus: Uterine fundus firm, palpable 2 cm below umbilicus. Lower Extremities: No lower extremity edema or swelling. No deep calf pain. Georgie's negative bilaterally. Results & Data ([facility]) <Gabrielle Miranda - Last Filed: 09/18/21 07:14> Vital Signs (Past 12 Hours) Vital Signs Temp Pulse Resp BP Pulse Ox O2 Del Method 09/18/21 05:20 91 H 131/89 09/18/21 00:05 36.7 C 94 H 16 126/92 98 Room Air 09/17/21 20:50 36.8 C 96 H 17 121/84 98 Room Air 09/17/21 18:45 102 H 20 146/82 H <Citlalli Avelar MD, FACOG - Last Filed: 09/18/21 07:18> Co-Signing Physician Notes Resident Physician Supervision Note: I interviewed and examined the patient. Discussed with Dr. Miranda and agree with findings and plan as documented in the note. Any exceptions or clarifications are listed here: see below Documented By: Citlalli Avelar MD, FACOG Patient doing well. No s/s of pet noted. Pressures are improved on labetolol. Feels overall well. Plan d/c. May nest because of baby being under the lights. Plan f/u in the office tomorrow as she already has an appt and then again on Saturday. Resident Activity Tracking <Gabrielle Miranda, - Last Filed: 09/18/21 07:14> Resident Involvement: Resident Care Provided Care Provided: OB Delivery (Post )
[2021-09-18] MEDS: LABETALOL HCL 100 MG TAB PO SCH (08:41)
[2021-09-18] MEDS: DOCUSATE SODIUM 100 MG CAP PO SCH (08:41)
[2021-09-18] MEDS: PRENATAL VITAMIN 1 TAB PO SCH (08:41)
== END 2021-09-18 18:04 | disposition home or self-care (01) | DRG 807 ==
LOC: OPB 17:38 → 4S1 17:42 → 4E2 09-16 21:29

== ENCOUNTER 2021-09-20 23:06 | Inpatient (IN) ==
[2021-09-21 00:30] LABS: Basophils # (auto) 0.02 K/uL (0-0.2); Basophils % (auto) 0.3 %; Eosinophils # (auto) 0.34 K/uL (0-0.50); Eosinophils % (auto) 4.8 %; Immature Granulocytes # (auto) 0.04 K/uL (0.00-0.02); Immature Granulocytes % (auto) 0.6 %; Lymphocytes # (auto) 1.85 K/uL (1.2-3.4); Lymphocytes % (auto) 26.3 %; Mean Corpuscular Hemoglobin 27.9 pg (25.0-34.0); Mean Corpuscular Hgb Conc 31.3 g/dL (32.0-36.0); Mean Corpuscular Volume 89.4 fL (80.0-100.0); Mean Platelet Volume 11.4 fL (9.4-12.3); Monocytes # (auto) 0.41 K/uL (0.24-0.82); Monocytes % (auto) 5.8 %; Neutrophils # (auto) 4.37 K/uL (1.4-6.5); Neutrophils % (auto) 62.2 %; Platelet Count 196 K/uL (130-400); RDW Coefficient of Variation 14.9 % (11.5-14.5); RDW Standard Deviation 48.5 fL (36.4-46.3); Red Blood Count 3.58 M/uL (3.93-5.22); White Blood Count 7.03 K/ul (4.8-10.8)
--- NOTE | 2021-09-21 00:32 | Emergency Department Note ---
History of Present Illness General Chief complaint: Hypertension Stated complaint: HEADACHE, SWELLING FEET/ 4 DAYS Time Seen by Provider: 09/21/21 00:18 Source: patient Mode of arrival: ambulatory Limitations: no limitations History of Present Illness Provider complaint: headache, feet swelling, high blood pressure Maximum Pain Intensity: 8 This is a 31-year-old female who presents due to concern for evolving preeclampsia due to headaches and feet swelling which began today. Patient had preeclampsia during her first and period. Patient had no issues with blood pressure during this , had an uncomplicated vaginal delivery. She states baby is still in NICU due to jaundice, however she had been discharged. She was seen and evaluated yesterday as a precaution due to her prior history. She was started on labetalol 100 mg twice daily at [facility], this was increased to 200 twice daily yesterday. She did take her doses today. She states she was checking her blood pressure up in the nursery while with her baby and had blood pressure readings that were 150s over 90s. She states she has had intermittent headache all day and that is dull and mostly frontal. She says its been coming and going and she felt was more likely related to the crying she had been doing. Patient denies any worsening abdominal pain, back pain, states her bleeding is slowing. She denies fevers, chills, dizziness, vision changes, tinnitus, chest pain, or trouble breathing. Pt seen during a time of high acuity and national emergency pandemic while wearing PPE. Home Medications Medication Instructions Recorded Confirmed Type prenat.vits,destinee,[id number] 1 tab PO DAILY 02/27/21 09/20/21 History labetalol 100 mg tablet 200 mg PO BID 30 days #120 tabs 09/19/21 09/20/21 Rx Allergies Allergy/AdvReac Type Severity Reaction Status Date / Time No Known Drug Allergies Allergy Unknown Verified 09/20/21 23:28 Past Med/Surg History Medical History Chronic hypertension during COVID-19 (~08/10/21) Gestational diabetes mellitus (GDM) Gestational hypertension without significant proteinuria during in third trimester, antepartum H/O infectious mononucleosis History of pre-eclampsia HTN (hypertension) Normal vaginal delivery Obesity affecting Pre-eclampsia at 37 weeks gestation or greater with abnormal testing Surgical History No pertinent past surgical history Status post vaginal delivery Family History Father Hypertension Stroke Grandfather (Maternal) Diabetes Myocardial infarction Coronary heart disease Lung cancer Grandfather (Paternal) Myocardial infarction Coronary heart disease Brother Hypertension Denies family history of Ovarian cancer Prostate cancer Breast cancer Colorectal cancer Social History Smoking Status: Former smoker Tobacco Type: Cigarettes Age Quit Using Tobacco: 26; Years Smoked: 10; Second Hand Exposure: No; Hx Alcohol Use: No Hx Substance Use: No Preferred Language: Nicar[place]uan Communication Ability: Effective Visual Impairment: No Limitations Hearing Ability: Normal Foot Worker Required: No Beliefs That Will Affect Care: None marital status: marital status details: Anjel Messer ([phone] Current Living Situation: Spouse and Family Current Living Situation Comment: and daughter current occupational status: employed current occupation: [employer] How many Children do You have: 1 Feels Safe at Home: Yes Childhood Exposure to Second-Hand Smoke: No caffeine: Yes (Coffee x 1 today.) during the past year weight has: remained stable Dental Care, Regularly: No Physical Activity Frequency: Daily Seatbelt Use: always Sunscreen Use: Yes Assistive Devices: None Review of Systems A total of 10 systems reviewed and were otherwise negative All systems reviewed & are unremarkable except as noted in HPI & below Physical Exam Vital Signs Vital Signs - 24 hr 09/21/21 04:30 09/21/21 04:45 09/21/21 04:47 Pulse Rate 51 L 54 L 58 L Pulse Rate from SpO2 Sensor 55 L 53 L 68 Respiratory Rate 11 L 13 11 L Blood Pressure 169/91 H Blood Pressure Mean 117 Pulse Oximetry 92 95 95 09/21/21 04:47 09/21/21 04:56 09/21/21 05:00 Pulse Rate 75 51 L Pulse Rate from SpO2 Sensor 70 53 L Respiratory Rate 13 14 Blood Pressure 169/91 H 186/100 H 159/102 H Blood Pressure Mean 117 128 121 Pulse Oximetry 95 96 09/21/21 05:15 09/21/21 05:30 09/21/21 05:45 Pulse Rate 76 57 L 81 Pulse Rate from SpO2 Sensor 78 56 L 79 Respiratory Rate 13 13 20 Blood Pressure 191/124 H 195/109 H 154/96 H Blood Pressure Mean 146 137 115 Pulse Oximetry 96 97 94 09/21/21 06:00 09/21/21 06:01 09/21/21 06:14 Pulse Rate 82 95 H 66 Pulse Rate from SpO2 Sensor 83 96 H 68 Respiratory Rate 15 20 15 Blood Pressure 150/98 H 150/98 H Blood Pressure Mean 115 115 Pulse Oximetry 95 99 94 09/21/21 06:15 09/21/21 07:00 09/21/21 07:15 Pulse Rate 95 H 74 74 Pulse Rate from SpO2 Sensor 96 H 75 74 Respiratory Rate 21 21 13 Blood Pressure 153/93 H 165/113 H 162/107 H Blood Pressure Mean 113 130 125 Pulse Oximetry 97 97 96 GENERAL: alert, well appearing, well nourished, no distress, non-toxic EYE EXAM: normal conjunctiva, PERRL and EOM's grossly intact, no nystagmus OROPHARYNX: no exudate, no erythema, lips, buccal mucosa, and tongue normal and mucous membranes are moist NECK: supple, no nuchal rigidity, no adenopathy, non-tender LUNGS: Clear to auscultation. Normal chest wall mechanics, no w/r/r HEART: no murmurs, S1 normal and S2 normal ABDOMEN: abdomen soft, non-tender, normo-active bowel sounds, no masses, no rebound or guarding. BACK: Back is symmetrical on inspection and there is no deformity, no midline tenderness, no CVA tenderness. SKIN: no rashes and no bruising UPPER EXTREMITIES: upper extremities are grossly normal. FROM, nml pulses b/l. LOWER EXTREMITIES: Trace pitting edema. FROM, nml pulses b/l. NEURO EXAM: Normal sensorium, cranial nerves II-XII grossly intact, normal speech, no gross weakness of arms, no gross weakness of legs. Gross sensation intact. Course Course 0132: Pt updated on results. States her headache is gone. 0208: Discussed with Dr. Pena, Home Health Rn. 0300: Pt just now getting labetolol. 0450: BP still elevated. Dr. Pena updated. She advised additional medicatio n, oral nifedipine. 0600: BPs were improved, Dr. Pena updated. She is coming to evaluate the p atient around 630. Patient states she feels markedly improved. Administered Medications Hydralazine HCl (Hydralazine Hcl 20 Mg/Ml Vial) 5 mg IV Q4H PRN PRN Reason: sBP > 180; diastolic BP>120 Stop: 10/21/21 13:52 Last Admin: 09/21/21 23:47 Dose: 5 mg Documented By: ADEN Discontinued Medications Acetaminophen (Acetaminophen 325 Mg Tab) 650 mg PO Q4H PRN PRN Reason: Pain or Fever Stop: 10/21/21 07:20 Last Admin: 09/21/21 20:09 Dose: 650 mg Documented By: Admin: 09/21/21 16:26 Dose: 650 mg Documented By: Admin: 09/21/21 08:33 Dose: 650 mg Documented By: SD Acetaminophen (Ofirmev) 1,000 mg in 100 mls @ 400 mls/hr IV NOW STA Stop: 09/21/21 00:47 Last Infusion: 09/21/21 08:38 Dose: 0 mls/hr Documented By: Admin: 09/21/21 01:30 Dose: 400 mls/hr Documented By: CARMEN Sodium Chloride (Nss) 500 mls @ 80 mls/hr IV .Q6H15M LUCHO Stop: 10/21/21 01:44 Last Infusion: 09/21/21 08:38 Dose: 0 mls/hr Documented By: Admin: 09/21/21 02:15 Dose: 80 mls/hr Documented By: CARMEN Labetalol HCl (Labetalol Hcl Iv 5 Mg/Ml 20ml) 10 mg IV NOW STA Stop: 09/21/21 02:11 Last Admin: 09/21/21 02:59 Dose: 10 mg Documented By: CARMEN Co-signed By: THANIA Labetalol HCl (Labetalol Hcl Iv 5 Mg/Ml 20ml) 10 mg IV NOW STA Stop: 09/21/21 03:49 Last Admin: 09/21/21 04:02 Dose: 10 mg Documented By: CARMEN Co-signed By: YAZ Labetalol HCl (Labetalol Hcl 200 Mg Tab) 200 mg PO BID LUCHO Stop: 10/21/21 10:33 Last Admin: 09/21/21 20:10 Dose: 200 mg Documented By: Admin: 09/21/21 10:59 Dose: 200 mg Documented By: REBEKAH Labetalol HCl (Labetalol Hcl 100 Mg Tab) 100 mg PO NOW ONE Stop: 09/21/21 20:46 Last Admin: 09/21/21 21:10 Dose: 100 mg Documented By: ADEN Nifedipine (Nifedipine 10 Mg Cap) 10 mg PO NOW STA Stop: 09/21/21 04:54 Last Admin: 09/21/21 05:11 Dose: 10 mg Documented By: CARMEN Medical Decision Making Differential Diagnosis Differential: Benign Hypertension, Hypertensive Urgency/Emergency, Cardiovascu lar Pathology, Endocrine, Metabolic/Electrolyte, Renal Disease, End organ Damage, amongst other pathologies entertained. Medical Records Attestation: I reviewed the patient's medical records. Home Medications Current Medication List: was personally reviewed by me Laboratory Data Attestation: I reviewed the patient's lab results. Result diagrams: 09/22/21 00:02 09/22/21 00:02 Lab Results 09/20/21 09/20/21 09/20/21 Range/Units 23:38 23:38 23:38 WBC 7.03 (4.8-10.8) K/ul RBC 3.58 L (3.93-5.22) M/uL Hgb 10.0 L (12.0-16.0) g/dl Hct 32.0 L (34.1-44.9) % MCV 89.4 (80.0-100.0) fL MCH 27.9 (25.0-34.0) pg MCHC 31.3 L (32.0-36.0) g/dL RDW Std Deviation 48.5 H (36.4-46.3) fL RDW Coeff of Amadou 14.9 H (11.5-14.5) % Plt Count 196 (130-400) K/uL MPV 11.4 (9.4-12.3) fL Immature Gran % (Auto) 0.6 % Neut % (Auto) 62.2 % Lymph % (Auto) 26.3 % [place] % (Auto) 5.8 % Eos % (Auto) 4.8 % Baso % (Auto) 0.3 % Neut # (Auto) 4.37 (1.4-6.5) K/uL Lymph # (Auto) 1.85 (1.2-3.4) K/uL [place] # (Auto) 0.41 (0.24-0.82) K/uL Eos # (Auto) 0.34 (0-0.50) K/uL Baso # (Auto) 0.02 (0-0.2) K/uL Immature Gran # (Auto) 0.04 H (0.00-0.02) K/uL PT 9.5 (9.0-12.0) Seconds INR 0.9 (0.9-1.1) APTT 27.2 (21.0-31.0) Seconds PTT Ratio 1.0 Sodium 139 (136-145) mmol/L Potassium 3.4 L (3.5-5.1) mmol/L Chloride 108 H (98-107) mmol/L Carbon Dioxide 21 (21-32) mmol/L Anion Gap 10 (3-11) BUN 11 (6-23) mg/dl Creatinine 0.54 L (0.6-1.2) mg/dl Est Cr Clr Drug Dosing 195.6 ml/min Est GFR ( Amer) 143.7 ml/min Est GFR (Non-Af Amer) 124.0 ml/min BUN/Creatinine Ratio 20.4 H (10-20) Glucose 102 H (70-99(Fasting)) mg/dl Calcium 8.5 (8.5-10.1) mg/dl Total Bilirubin 0.2 (0.2-1.0) mg/dl AST 40 H (13-39) U/L ALT 41 (7-52) U/L Alkaline Phosphatase 95 (34-104) U/L Troponin I High Sens (0-14) pg/ml Total Protein 6.9 (6.0-8.3) gm/dl Albumin 3.4 (3.4-5.0) gm/dl Globulin 3.5 (2.5-4.0) gm/dl Albumin/Globulin Ratio 1.0 (0.9-2) Urine Color Urine Appearance (Clear) Urine pH (4.5-7.5) Ur Specific [place] (1.000-1.030) Urine Protein (Negative) Urine Glucose (UA) (Negative) Urine Ketones (Negative) Urine Blood (Negative) Urine Nitrite (Negative) Urine Bilirubin (Negative) Urine Urobilinogen (Negative) Ur Leukocyte Esterase (Negative) Urine WBC (Auto) (0-5) /hpf Urine RBC (Auto) (0-4) /hpf U Hyaline Cast (Auto) (0-5) /lpf U Epithel Cells (Auto) (0-5) /lpf Urine Bacteria (Auto) (Negative) Ur Random Creatinine mg/dl U Random Total Protein (0-11.9) mg/dl Protein/Creatinin Ratio (0-0.2) 09/20/21 09/21/21 09/21/21 Range/Units 23:38 00:00 00:00 WBC (4.8-10.8) K/ul RBC (3.93-5.22) M/uL Hgb (12.0-16.0) g/dl Hct (34.1-44.9) % MCV (80.0-100.0) fL MCH (25.0-34.0) pg MCHC (32.0-36.0) g/dL RDW Std Deviation (36.4-46.3) fL RDW Coeff of Amadou (11.5-14.5) % Plt Count (130-400) K/uL MPV (9.4-12.3) fL Immature Gran % (Auto) % Neut % (Auto) % Lymph % (Auto) % [place] % (Auto) % Eos % (Auto) % Baso % (Auto) % Neut # (Auto) (1.4-6.5) K/uL Lymph # (Auto) (1.2-3.4) K/uL [place] # (Auto) (0.24-0.82) K/uL Eos # (Auto) (0-0.50) K/uL Baso # (Auto) (0-0.2) K/uL Immature Gran # (Auto) (0.00-0.02) K/uL PT (9.0-12.0) Seconds INR (0.9-1.1) APTT (21.0-31.0) Seconds PTT Ratio Sodium (136-145) mmol/L Potassium (3.5-5.1) mmol/L Chloride (98-107) mmol/L Carbon Dioxide (21-32) mmol/L Anion Gap (3-11) BUN (6-23) mg/dl Creatinine (0.6-1.2) mg/dl Est Cr Clr Drug Dosing ml/min Est GFR ( Amer) ml/min Est GFR (Non-Af Amer) ml/min BUN/Creatinine Ratio (10-20) Glucose (70-99(Fasting)) mg/dl Calcium (8.5-10.1) mg/dl Total Bilirubin (0.2-1.0) mg/dl AST (13-39) U/L ALT (7-52) U/L Alkaline Phosphatase (34-104) U/L Troponin I High Sens 10.9 (0-14) pg/ml Total Protein (6.0-8.3) gm/dl Albumin (3.4-5.0) gm/dl Globulin (2.5-4.0) gm/dl Albumin/Globulin Ratio (0.9-2) Urine Color Yellow Urine Appearance Clear (Clear) Urine pH 6.0 (4.5-7.5) Ur Specific [place] 1.006 (1.000-1.030) Urine Protein Negative (Negative) Urine Glucose (UA) Negative (Negative) Urine Ketones Negative (Negative) Urine Blood 2+ H (Negative) Urine Nitrite Negative (Negative) Urine Bilirubin Negative (Negative) Urine Urobilinogen Negative (Negative) Ur Leukocyte Esterase Trace H (Negative) Urine WBC (Auto) 1-5 (0-5) /hpf Urine RBC (Auto) 0-4 (0-4) /hpf U Hyaline Cast (Auto) 0 (0-5) /lpf U Epithel Cells (Auto) 5-10 H (0-5) /lpf Urine Bacteria (Auto) Negative (Negative) Ur Random Creatinine 27.2 mg/dl U Random Total Protein 4.1 (0-11.9) mg/dl Protein/Creatinin Ratio 0.2 (0-0.2) 09/21/21 09/21/21 Range/Units 06:30 06:30 WBC 6.63 (4.8-10.8) K/ul RBC 3.55 L (3.93-5.22) M/uL Hgb 10.2 L (12.0-16.0) g/dl Hct 31.4 L (34.1-44.9) % MCV 88.5 (80.0-100.0) fL MCH 28.7 (25.0-34.0) pg MCHC 32.5 (32.0-36.0) g/dL RDW Std Deviation 47.6 H (36.4-46.3) fL RDW Coeff of Amadou 14.6 H (11.5-14.5) % Plt Count 200 (130-400) K/uL MPV 11.4 (9.4-12.3) fL Immature Gran % (Auto) 0.5 % Neut % (Auto) 67.9 % Lymph % (Auto) 23.1 % [place] % (Auto) 4.8 % Eos % (Auto) 3.2 % Baso % (Auto) 0.5 % Neut # (Auto) 4.51 (1.4-6.5) K/uL Lymph # (Auto) 1.53 (1.2-3.4) K/uL [place] # (Auto) 0.32 (0.24-0.82) K/uL Eos # (Auto) 0.21 (0-0.50) K/uL Baso # (Auto) 0.03 (0-0.2) K/uL Immature Gran # (Auto) 0.03 H (0.00-0.02) K/uL PT (9.0-12.0) Seconds INR (0.9-1.1) APTT (21.0-31.0) Seconds PTT Ratio Sodium 139 (136-145) mmol/L Potassium 3.9 (3.5-5.1) mmol/L Chloride 109 H (98-107) mmol/L Carbon Dioxide 22 (21-32) mmol/L Anion Gap 8 (3-11) BUN 10 (6-23) mg/dl Creatinine 0.47 L (0.6-1.2) mg/dl Est Cr Clr Drug Dosing 224.7 ml/min Est GFR ( Amer) > 150.0 ml/min Est GFR (Non-Af Amer) 129.8 ml/min BUN/Creatinine Ratio 21.3 H (10-20) Glucose 100 H (70-99(Fasting)) mg/dl Calcium 8.3 L (8.5-10.1) mg/dl Total Bilirubin 0.2 (0.2-1.0) mg/dl AST 40 H (13-39) U/L ALT 43 (7-52) U/L Alkaline Phosphatase 89 (34-104) U/L Troponin I High Sens (0-14) pg/ml Total Protein 6.5 (6.0-8.3) gm/dl Albumin 3.3 L (3.4-5.0) gm/dl Globulin 3.2 (2.5-4.0) gm/dl Albumin/Globulin Ratio 1.0 (0.9-2) Urine Color Urine Appearance (Clear) Urine pH (4.5-7.5) Ur Specific [place] (1.000-1.030) Urine Protein (Negative) Urine Glucose (UA) (Negative) Urine Ketones (Negative) Urine Blood (Negative) Urine Nitrite (Negative) Urine Bilirubin (Negative) Urine Urobilinogen (Negative) Ur Leukocyte Esterase (Negative) Urine WBC (Auto) (0-5) /hpf Urine RBC (Auto) (0-4) /hpf U Hyaline Cast (Auto) (0-5) /lpf U Epithel Cells (Auto) (0-5) /lpf Urine Bacteria (Auto) (Negative) Ur Random Creatinine mg/dl U Random Total Protein (0-11.9) mg/dl Protein/Creatinin Ratio (0-0.2) [facility] Narrative An order was placed for continuous cardiac monitoring. The monitor shows a rate of _70_ with _normal sinus_ rhythm. This is a 31-year-old female presents due to concern for headaches, leg swelling, and hypertension given a prior history of preeclampsia. Patient is 4 days . She is taking labetalol as she was prescribed at discharge and this was recently increased on Saturday. Labs drawn and sent, urine collected. Patient's blood pressures here were elevated. Case discussed with on-call KETTLE WORKER, Dr. Pena who advised additional IV labetalol. Patient initially did not have any response to the first dose, a second dose was given after discussion with Dr. Pena again, and then patient given oral nifedipine due to persistent elevated pressures. This did seem to help improve her blood pressure. Patient's headache resolved with IV Tylenol. She was given gentle IV fluid rehydration. No other symptoms to suggest evolving infectious etiology. Patient had a normal and nonfocal neuro exam. Dr. Pena did evaluate the patient in the morning and did repeat labs. Patient kept for additional observation by KETTLE WORKER. Patient has a family history of htn. Patient was first seen and observation began at 0018 and was necessary in order to evaluate symptoms and provide several medications for BP control. Upon re-evaluation, 7 hours of observation revealed that the patient could be discharged. Discharged from ED observation at 0756. Impression & Plan Hypertension, complication Discharge Plan Visit Data Chief Complaint: Hypertension Stated Complaint: HEADACHE, SWELLING FEET/ 4 DAYS ED Provider: Perlita Balderas Discharge Problem: Hypertension, complication Patient Disposition: Admitted As Inpatient Discharge Instructions Interventions: ED Discharge Assessment Last Done: 09/21/21 09:48
[2021-09-21] MEDS ORDERED: ACETAMINOPHEN 1,000 MG/100 ML VIAL IV STA (00:33)
[2021-09-21 00:45] LABS: INR 0.9 (0.9-1.1); Partial Thromboplastin Time 27.2 Seconds (21.0-31.0); Prothrombin Time 9.5 Seconds (9.0-12.0)
[2021-09-21 00:53] LABS: Appearance Urine Clear (Clear); Bacteria Urine Automated Negative (Negative); Bilirubin Urine Negative (Negative); Blood Urine 2+ (Negative); Cast Urine Automated 0 /lpf (0-5); Color Urine Yellow; Glucose Urine UA Negative (Negative); Ketones Urine Negative (Negative); Leukocyte Esterase Urine Trace (Negative); Nitrite Urine Negative (Negative); Protein Urine Negative (Negative); RBC Urine Automated 0-4 /hpf (0-4); Specific Gravity Urine 1.006 (1.000-1.030); Urobilinogen Urine Negative (Negative)
[2021-09-21 01:22] LABS: Albumin Level 3.4 gm/dl (3.4-5.0); BUN Creatinine Ratio 20.4 (10-20); Bilirubin,Total 0.2 mg/dl (0.2-1.0); Calcium 8.5 mg/dl (8.5-10.1); Creatinine Clr Calc Pharmacy 195.6 ml/min; Est GFR (African American) 143.7 ml/min; Globulin 3.5 gm/dl (2.5-4.0); Potassium 3.4 mmol/L (3.5-5.1); Total Protein 6.9 gm/dl (6.0-8.3)
[2021-09-21] MEDS ORDERED: SODIUM CHLORIDE 0.9% 500 ML IV SCH (01:45)
[2021-09-21] MEDS ORDERED: LABETALOL HCL IV 5 MG/ML 20ML IV STA ×2 (02:10→03:48)
[2021-09-21] MEDS ORDERED: NIFEdipine 10 MG CAP PO STA ×2 (04:53→10:19)
[2021-09-21 06:45] LABS: Basophils # (auto) 0.03 K/uL (0-0.2); Basophils % (auto) 0.5 %; Eosinophils # (auto) 0.21 K/uL (0-0.50); Eosinophils % (auto) 3.2 %; Hematocrit (blood only) 31.4 % (34.1-44.9); Hemoglobin 10.2 g/dl (12.0-16.0); Immature Granulocytes # (auto) 0.03 K/uL (0.00-0.02); Immature Granulocytes % (auto) 0.5 %; Lymphocytes # (auto) 1.53 K/uL (1.2-3.4); Lymphocytes % (auto) 23.1 %; Mean Corpuscular Hemoglobin 28.7 pg (25.0-34.0); Mean Corpuscular Hgb Conc 32.5 g/dL (32.0-36.0); Mean Corpuscular Volume 88.5 fL (80.0-100.0); Mean Platelet Volume 11.4 fL (9.4-12.3); Monocytes # (auto) 0.32 K/uL (0.24-0.82); Monocytes % (auto) 4.8 %; Neutrophils # (auto) 4.51 K/uL (1.4-6.5); Neutrophils % (auto) 67.9 %; Platelet Count 200 K/uL (130-400); RDW Coefficient of Variation 14.6 % (11.5-14.5); RDW Standard Deviation 47.6 fL (36.4-46.3); Red Blood Count 3.55 M/uL (3.93-5.22); White Blood Count 6.63 K/ul (4.8-10.8)
[2021-09-21 07:02] LABS: Alanine Aminotransferase 43 U/L (7-52); Albumin Level 3.3 gm/dl (3.4-5.0); Alkaline Phosphatase 89 U/L (34-104); Anion Gap 8 (3-11); Aspartate Aminotransferase 40 U/L (13-39); BUN Creatinine Ratio 21.3 (10-20); Bilirubin,Total 0.2 mg/dl (0.2-1.0); Blood Urea Nitrogen 10 mg/dl (6-23); Calcium 8.3 mg/dl (8.5-10.1); Carbon Dioxide 22 mmol/L (21-32); Chloride 109 mmol/L (98-107); Creatinine Clr Calc Pharmacy 224.7 ml/min; Est GFR (African American) > 150.0 ml/min; Est GFR (Non-African American) 129.8 ml/min; Globulin 3.2 gm/dl (2.5-4.0); Glucose 100 mg/dl (70-99(Fasting)); Potassium 3.9 mmol/L (3.5-5.1); Sodium 139 mmol/L (136-145); Total Protein 6.5 gm/dl (6.0-8.3)
[2021-09-21] MEDS ORDERED: LACTATED RINGER'S 1,000 ML IV PRN (07:21)
--- NOTE | 2021-09-21 07:48 | History & Physical Report ---
Date of Service September 21, 2021 Assessment & Plan (1) Hypertension: Plan: Patient is a 31-year-old 2 para 2 most recently delivered vaginally on 09/16/2021 who now presents with elevated blood pressures in the emergency room without evidence of PET at this time. I think admitting her under observation status to first rule out preeclampsia particularly in light of her history of developing preeclampsia with her first delivery. We will do serial blood pressures and manage her blood pressure with the help of the hospitalist who will be consulted. Of note, she seemed to respond the best to nifedipine following the delivery of her first child. She ultimately was tried on metoprolol which did not adequately stabilize her blood pressures. She was diagnosed with chronic hypertension and her blood pressures have remained in the normotensive range on lisinopril 10 mg. She did not require any antihypertensives during her this time. Her current diagnoses is still gestational hypertension superimposed on chronic hypertension. I will defer starting any magnesium sulfate at this time as her current labs and blood pressures do not indicate PET with severe features. Patient is agreeable to this plan and all her questions were answered to her satisfaction. (2) complication: History of Present Illness Primary Care Provider: Any Boudreaux DO Patient is a 31-year-old 2 para 2-0-0-2 female who delivered spontaneously following induction of labor for gestational hypertension superimposed on chronic hypertension on 09/16/2021. Her blood pressures during period continue be elevated and she was discharged on 100 mg of labetalol all twice daily. PET labs were all normal during her admission. She was seen in the office on 09/19/2021 for a blood pressure check and her pressures were elevated enough to increase the dose of her labetalol to 200 mg twice daily. Since then she has had intermittent headache and has been checking her blood pressure while nesting here in the mother-baby unit because her baby is being monitored in the nursery for elevated bilirubins. It was noted that her pressures were significantly higher last evening in the range of 180/103 and she was sent to the emergency room for further evaluation. Her pressures were markedly elevated upon arrival in and the emergency room she was complaining of a mild headache which quickly resolved with Tylenol. The headache has not returned. She denies any other PET symptoms. Her initial PET labs were normal although her AST and elevated ALT doubled from her levels last drawn 4 days ago. These levels are still considered in the normal range. Platelet count is normal. Because her pressures were so high she was given 2 doses of IV labetalol 10 mg. They did not significantly change her blood pressure. She received 1 dose of nifedipine 10 mg orally and current pressures are now in the high range but not severe. The PET labs were repeated 6 hours from the first set and they continue to be normal. There has been no further increase in her ALT or AST. She has been taking her labetalol 200 mg twice daily at 9 AM and 9 PM. She has not missed any doses. Of note and her history, she developed preeclampsia approximately 4 days after delivery with a of her first child. She required magnesium sulfate received seizure prevention. Her blood pressures did not respond well to labetalol during that admission and eventually she was much better controlled on nifedipine at a 30 mg dose. She has had no side effects with taking the nifedipine in the past nor with the dose that she received in the emergency room last night. Because she required IV labetalol and nifedipine to control her blood pressure and because the diagnosis of PET is still uncertain, we will admit her for observation for serial blood pressures blood pressure management and serial PET labs. Allergies Allergy/AdvReac Type Severity Reaction Status Date / Time No Known Drug Allergies Allergy Unknown Verified 09/20/21 23:28 Home Medications Medication Instructions Recorded Confirmed Type prenat.vits,destinee,edy-hkil-hukfe 1 tab PO DAILY 02/27/21 09/20/21 History labetalol 100 mg tablet 200 mg PO BID 30 days #120 tabs 09/19/21 09/20/21 Rx Patient History Medical History Chronic hypertension during COVID-19 (~08/10/21) Gestational diabetes mellitus (GDM) Gestational hypertension without significant proteinuria during in third trimester, antepartum H/O infectious mononucleosis History of pre-eclampsia HTN (hypertension) Normal vaginal delivery Obesity affecting Pre-eclampsia at 37 weeks gestation or greater with abnormal testing Surgical History No pertinent past surgical history Status post vaginal delivery Family History Father Hypertension Stroke Grandfather (Maternal) Diabetes Myocardial infarction Coronary heart disease Lung cancer Grandfather (Paternal) Myocardial infarction Coronary heart disease Brother Hypertension Denies family history of Ovarian cancer Prostate cancer Breast cancer Colorectal cancer Social History Smoking Status: Former smoker Tobacco Type: Cigarettes Age Quit Using Tobacco: 26; Years Smoked: 10; Second Hand Exposure: No; Hx Alcohol Use: No Hx Substance Use: No Preferred Language: Mozambican Communication Ability: Effective Visual Impairment: No Limitations Hearing Ability: Normal Instructor Dramatic Arts Required: No Beliefs That Will Affect Care: None marital status: marital status details: Anjel Messer (34) [phone] Current Living Situation: Spouse and Family Current Living Situation Comment: and daughter current occupational status: employed current occupation: [employer] How many Children do You have: 1 Feels Safe at Home: Yes Childhood Exposure to Second-Hand Smoke: No caffeine: Yes (Coffee x 1 today.) during the past year weight has: remained stable Dental Care, Regularly: No Physical Activity Frequency: Daily Seatbelt Use: always Sunscreen Use: Yes Assistive Devices: None Review of Systems All systems reviewed & are unremarkable except as noted in HPI & below Physical Exam Constitutional: WD/WN, vitals as above Respiratory: normal respiratory effort, lungs clear to auscultation Cardiovascular: RRR, no murmur, no edema Neurologic: patellar DTR's 2+ bilat, sensation intact Psychiatric: A+Ox3, euthymic affect Genitourinary: OB Exam Abdomen: + fundal height Fundus: + firm and + relation to umbilicus (4 below) Results & Data ([facility]) Vital Signs (Past 12 Hours) Vital Signs Temp Pulse Pulse Resp BP BP Pulse Ox 09/21/21 06:15 95 H 21 153/93 H 97 09/21/21 06:14 66 15 94 09/21/21 06:01 95 H 20 150/98 H 99 09/21/21 06:00 82 15 150/98 H 95 09/21/21 05:45 81 20 154/96 H 94 09/21/21 05:30 57 L 13 195/109 H 97 09/21/21 05:15 76 13 191/124 H 96 09/21/21 05:00 51 L 14 159/102 H 96 09/21/21 04:56 75 13 186/100 H 95 09/21/21 04:47 169/91 H 09/21/21 04:47 58 L 11 L 169/91 H 95 09/21/21 04:45 54 L 13 95 09/21/21 04:30 51 L 11 L 92 09/21/21 04:15 72 12 97 09/21/21 04:10 65 18 96 09/21/21 04:10 170/109 H 09/21/21 04:00 74 16 97 09/21/21 04:00 173/90 H 09/21/21 03:45 70 19 97 09/21/21 03:41 69 14 174/101 H 98 09/21/21 03:30 69 11 L 97 09/21/21 03:15 85 13 97 09/21/21 03:15 166/106 H 09/21/21 03:00 62 16 98 09/21/21 03:00 175/107 H 09/21/21 02:45 60 18 96 09/21/21 02:45 185/113 H 09/21/21 02:30 58 L 16 97 09/21/21 02:30 156/105 H 09/21/21 02:15 64 14 97 09/21/21 02:15 173/100 H 09/21/21 02:00 58 L 17 95 09/21/21 02:00 164/110 H 09/21/21 01:45 75 22 98 09/21/21 01:45 165/112 H 09/21/21 01:30 71 25 H 97 09/21/21 01:30 185/105 H 09/21/21 01:15 64 13 09/21/21 01:15 164/106 H 09/21/21 01:00 70 17 97 09/21/21 01:00 171/102 H 09/21/21 00:45 65 14 97 09/21/21 00:45 173/103 H 09/21/21 03:23 61 18 177/103 H 99 09/21/21 00:30 74 14 98 09/21/21 00:30 164/108 H 09/21/21 00:25 74 14 181/107 H 99 09/21/21 00:15 66 21 182/113 H 97 09/21/21 00:00 80 19 174/106 H 98 09/20/21 23:50 77 20 98 09/20/21 23:42 73 17 173/108 H 98 09/20/21 23:15 98.2 F 72 18 180/100 H 99 O2 Del Method 09/21/21 06:15 09/21/21 06:14 09/21/21 06:01 09/21/21 06:00 09/21/21 05:45 09/21/21 05:30 09/21/21 05:15 09/21/21 05:00 09/21/21 04:56 09/21/21 04:47 09/21/21 04:47 09/21/21 04:45 09/21/21 04:30 09/21/21 04:15 09/21/21 04:10 09/21/21 04:10 09/21/21 04:00 09/21/21 04:00 09/21/21 03:45 09/21/21 03:41 09/21/21 03:30 09/21/21 03:15 09/21/21 03:15 09/21/21 03:00 09/21/21 03:00 09/21/21 02:45 09/21/21 02:45 09/21/21 02:30 09/21/21 02:30 09/21/21 02:15 09/21/21 02:15 09/21/21 02:00 09/21/21 02:00 09/21/21 01:45 09/21/21 01:45 09/21/21 01:30 09/21/21 01:30 09/21/21 01:15 09/21/21 01:15 09/21/21 01:00 09/21/21 01:00 09/21/21 00:45 09/21/21 00:45 09/21/21 03:23 Room Air 09/21/21 00:30 09/21/21 00:30 09/21/21 00:25 09/21/21 00:15 09/21/21 00:00 09/20/21 23:50 09/20/21 23:42 09/20/21 23:15 Room Air Code Status & VTE Plan VTE Prophylaxis Plan VTE Prophylaxis will be ordered: No Coding Level of Care Code INT OBSERVATION CARE 30M LVL 1 Diagnoses Hypertension I10 complication O90.89
[2021-09-21] MEDS: ACETAMINOPHEN 325 MG TAB PO PRN ×3 (08:33→20:09)
[2021-09-21] MEDS: LABETALOL HCL 200 MG TAB PO SCH ×2 (10:59→20:10)
[2021-09-21] MEDS ORDERED: LABETALOL HCL 200 MG TAB PO SCH ×2 (11:00→21:00)
--- NOTE | 2021-09-21 11:04 | Communication Note ---
Date of Service: September 21, 2021 Patient just recently reached the floor. Pressure still elevated, but she continues to remain asymptomatic. She has not taken her oral labatolol this am so will give that now. REceived iv labatolol in the ed and one dose of oral nifedipine. Labs will be drawn again at noon. If her lfts show a continuing upward trend (were increased at 6am but still wnl.) plan to bring to labor and delivery for mag sulfate. Patient and her are aware and in agreement. Patient is exhausted and they are both quite stressed about all that is going on. Going to try to get her a nap.
--- NOTE | 2021-09-21 12:55 | Hospitalist Consultation ---
Date of Consultation September 21, 2021 Assessment & Plan (1) Hypertensive urgency: Mild headache which responded to acetaminophen Continue her usual labetalol 200mg PO BID Hydralazine 5mg q4h IV PRN for sBP > 180 Continue to monitor labs for pre-eclampsia but low suspicion her current headache is due to pre-eclampsia (2) Tension headache: Encourage rest Acetaminophen PRN History of Present Illness Reason for Consultation: Chronic hypertension, post Attending Physician: Daniela London MD, FACOG History of Present Illness Ronald Messer is a 31 year old female who presented to the ER last night due to headache, feet swelling and high blood pressure. She had an on and off headache since yesterday. No significant history of migraines but does get neck pain on the right side with light sensitivity occasionally. Severity headache currently 3-4/10. On arrival in emergency room 09/10. Responded to acetaminophen. and 2nd Degree LAC on September 16, 2021 delivered at 37 + 5 weeks admitted for induction due to gestational hypertension without proteinuria. Had pre-eclampsia with prior . Her is still hospitalized and she reports not sleeping well over the last week. No blurred vision or changes in vision. Allergies Allergy/AdvReac Type Severity Reaction Status Date / Time No Known Drug Allergies Allergy Unknown Verified 09/20/21 23:28 Home Medications Medication Instructions Recorded Confirmed Type prenat.vits,[place]inee,mem-ofvq-ycagf 1 tab PO DAILY 02/27/21 09/20/21 History labetalol 100 mg tablet 200 mg PO BID 30 days #120 tabs 09/19/21 09/20/21 Rx Patient History Medical History Chronic hypertension during COVID-19 (~08/10/21) Gestational diabetes mellitus (GDM) Gestational hypertension without significant proteinuria during in third trimester, antepartum H/O infectious mononucleosis History of pre-eclampsia HTN (hypertension) Normal vaginal delivery Obesity affecting Pre-eclampsia at 37 weeks gestation or greater with abnormal testing Surgical History No pertinent past surgical history Status post vaginal delivery Family History Father Hypertension Stroke Grandfather (Maternal) Diabetes Myocardial infarction Coronary heart disease Lung cancer Grandfather (Paternal) Myocardial infarction Coronary heart disease Brother Hypertension Denies family history of Ovarian cancer Prostate cancer Breast cancer Colorectal cancer Social History Smoking Status: Former smoker Tobacco Type: Cigarettes Age Quit Using Tobacco: 26; Years Smoked: 10; Second Hand Exposure: No; Hx Alcohol Use: No Hx Substance Use: No Preferred Language: [place] Communication Ability: Effective Visual Impairment: No Limitations Hearing Ability: Normal Lab Director Required: No Beliefs That Will Affect Care: None marital status: marital status details: Anjel Messer (34) [phone] Current Living Situation: Spouse and Family Current Living Situation Comment: and daughter current occupational status: employed current occupation: [employer] How many Children do You have: 1 Feels Safe at Home: Yes Childhood Exposure to Second-Hand Smoke: No caffeine: Yes (Coffee x 1 today.) during the past year weight has: remained stable Dental Care, Regularly: No Physical Activity Frequency: Daily Seatbelt Use: always Sunscreen Use: Yes Assistive Devices: None Review of Systems Review of Systems: All systems reviewed & are unremarkable except as noted in HPI & below Physical Exam Constitutional: WD/WN, vitals as above Eyes: PERRL, conjunctivae normal, anicteric sclerae ENMT: external ear and nose normal, oropharynx normal Neck: trachea midline, no thyromegaly + neck tender (trapezius insertion point on skull reproduces her headache) Respiratory: normal respiratory effort, lungs clear to auscultation Cardiovascular: RRR, no murmur, no edema Extremities: no pedal edema (no pitting edema of lower extremities) Gastrointestinal (Abdomen): normal bowel sounds, soft, nontender, no hepatosplenomegaly Musculoskeletal: no cyanosis or clubbing, extremities motor strength 5/5 Skin: no rashes, warm and dry Neurologic: moves all extremities and awake; not confused Psychiatric: A+Ox3, euthymic affect Results & Data Results & Data ([facility]) Vital Signs (Past 12 Hours) Vital Signs Pulse Pulse Resp BP BP Pulse Ox O2 Del Method 09/21/21 09:45 76 14 174/102 H 94 09/21/21 09:00 77 16 179/120 H 09/21/21 09:48 76 14 174/102 H 94 Room Air 09/21/21 08:31 74 13 148/117 H 09/21/21 08:30 77 17 09/21/21 08:16 79 16 09/21/21 07:30 76 22 164/100 H 94 09/21/21 07:15 74 13 162/107 H 96 09/21/21 07:00 74 21 165/113 H 97 09/21/21 06:15 95 H 21 153/93 H 97 09/21/21 06:14 66 15 94 09/21/21 06:01 95 H 20 150/98 H 99 09/21/21 06:00 82 15 150/98 H 95 09/21/21 05:45 81 20 154/96 H 94 09/21/21 05:30 57 L 13 195/109 H 97 09/21/21 05:15 76 13 191/124 H 96 09/21/21 05:00 51 L 14 159/102 H 96 09/21/21 04:56 75 13 186/100 H 95 09/21/21 04:47 169/91 H 09/21/21 04:47 58 L 11 L 169/91 H 95 09/21/21 04:45 54 L 13 95 09/21/21 04:30 51 L 11 L 92 09/21/21 04:15 72 12 97 09/21/21 04:10 65 18 96 09/21/21 04:10 170/109 H 09/21/21 04:00 74 16 97 09/21/21 04:00 173/90 H 09/21/21 03:45 70 19 97 09/21/21 03:41 69 14 174/101 H 98 09/21/21 03:30 69 11 L 97 09/21/21 03:15 85 13 97 09/21/21 03:15 166/106 H 09/21/21 03:00 62 16 98 09/21/21 03:00 175/107 H 09/21/21 02:45 60 18 96 09/21/21 02:45 185/113 H 09/21/21 02:30 58 L 16 97 09/21/21 02:30 156/105 H 09/21/21 02:15 64 14 97 09/21/21 02:15 173/100 H 09/21/21 02:00 58 L 17 95 09/21/21 02:00 164/110 H 09/21/21 01:45 75 22 98 09/21/21 01:45 165/112 H 09/21/21 01:30 71 25 H 97 09/21/21 01:30 185/105 H 09/21/21 01:15 64 13 09/21/21 01:15 164/106 H 09/21/21 01:00 70 17 97 09/21/21 01:00 171/102 H 09/21/21 03:23 61 18 177/103 H 99 Room Air PG Care Time/CCT Total # of Minutes Spent Total Time Spent with Patient: Total time spent is greater than 50% in coordination of care (as documented) at patient's floor/unit and/or counseling patient: Coding Level of Care Code 52560 Inpt Consult Level 4 Diagnoses Hypertensive urgency I16.0 Tension headache G44.209
[2021-09-21 12:57] LABS: Basophils # (auto) 0.04 K/uL (0-0.2); Basophils % (auto) 0.5 %; Eosinophils # (auto) 0.27 K/uL (0-0.50); Eosinophils % (auto) 3.5 %; Hemoglobin 10.2 g/dl (12.0-16.0); Immature Granulocytes # (auto) 0.04 K/uL (0.00-0.02); Immature Granulocytes % (auto) 0.5 %; Lymphocytes # (auto) 1.83 K/uL (1.2-3.4); Lymphocytes % (auto) 23.7 %; Mean Corpuscular Hemoglobin 28.3 pg (25.0-34.0); Mean Corpuscular Hgb Conc 31.9 g/dL (32.0-36.0); Mean Corpuscular Volume 88.9 fL (80.0-100.0); Mean Platelet Volume 11.3 fL (9.4-12.3); Monocytes # (auto) 0.52 K/uL (0.24-0.82); Monocytes % (auto) 6.7 %; Neutrophils # (auto) 5.02 K/uL (1.4-6.5); Neutrophils % (auto) 65.1 %; Platelet Count 205 K/uL (130-400); RDW Coefficient of Variation 14.7 % (11.5-14.5); RDW Standard Deviation 47.9 fL (36.4-46.3); White Blood Count 7.72 K/ul (4.8-10.8)
[2021-09-21 13:27] LABS: Albumin Globulin Ratio 1.1 (0.9-2); Albumin Level 3.2 gm/dl (3.4-5.0); Bilirubin,Total 0.2 mg/dl (0.2-1.0); Creatinine Clr Calc Pharmacy 199.3 ml/min; Est GFR (African American) 144.6 ml/min; Est GFR (Non-African American) 124.8 ml/min; Globulin 2.8 gm/dl (2.5-4.0); Potassium 3.7 mmol/L (3.5-5.1)
[2021-09-21] MEDS ORDERED: hydrALAZINE HCL 20 MG/ML VIAL IV PRN (13:53)
[2021-09-21] MEDS ORDERED: LABETALOL HCL 100 MG TAB PO ONE (20:45)
[2021-09-21] MEDS ORDERED: bisacodyL 10 MG SUPP PR PRN (20:58)
[2021-09-21] MEDS ORDERED: OXYTOCIN 30 UNITS/500 ML BAG IV PRN (20:58)
[2021-09-21] MEDS ORDERED: DIPHTHERIA/TETANUS/PERTUSSIS 0.5 ML SYR/VIAL IM ONE (20:58)
[2021-09-21] MEDS ORDERED: HYDROCORTISONE ACETATE 25 MG SUPP PR PRN (20:58)
[2021-09-21] MEDS ORDERED: oxyCODONE/ACETAMINOPHEN 5mg/325mg TAB PO PRN (20:58)
[2021-09-21] MEDS ORDERED: IBUPROFEN 600 MG TAB PO PRN (20:58)
[2021-09-21] MEDS ORDERED: BENZOCAINE 20% AER SPR 82.5 GM CAN EXT PRN (20:58)
[2021-09-21] MEDS ORDERED: DOCUSATE SODIUM 100 MG CAP PO SCH (21:00)
--- NOTE | 2021-09-21 21:08 | Communication Note ---
Date of Service: September 21, 2021 Spoke with patient and she continues to be anxious about her blood pressure. in the last couple of hours they have been persistently elevated 160-170/100. I plan to give another po labetalol 100mg now for total of 300mg and increase to 300mg tid. Patient is very anxious because she notes labetalol did not work for her last time and she is afraid the same thing is happening . She was best controlled on lisinopril. Will discuss with hospitalist team tomorrow. Other than a persistent easton, she has no other s/s of pet.
--- NOTE | 2021-09-21 22:33 | Electrocardiogram Report ---
Test Reason : Blood Pressure : / mmHG Vent. Rate : 064 BPM Atrial Rate : 064 BPM P-R Int : 128 ms QRS Dur : 070 ms QT Int : 404 ms P-R-T Axes : -10 055 047 degrees QTc Int : 416 ms Sinus rhythm with marked sinus arrhythmia Otherwise normal ECG When compared with ECG of 01-JAN-2020 10:14, No significant change was found Confirmed by Alfred Hung ([id number]) on 09/21/2021 10:32:50 PM Referred By: REFERRED SELF Confirmed By:Alfred Hung
[2021-09-22 00:10] LABS: Hematocrit (blood only) 30.7 % (34.1-44.9); Hemoglobin 9.9 g/dl (12.0-16.0); Mean Corpuscular Hemoglobin 28.4 pg (25.0-34.0); Mean Corpuscular Hgb Conc 32.2 g/dL (32.0-36.0); Mean Platelet Volume 10.8 fL (9.4-12.3); Platelet Count 208 K/uL (130-400); RDW Coefficient of Variation 14.6 % (11.5-14.5); RDW Standard Deviation 47.1 fL (36.4-46.3); Red Blood Count 3.49 M/uL (3.93-5.22); White Blood Count 7.64 K/ul (4.8-10.8)
[2021-09-22 00:35] LABS: Albumin Level 3.2 gm/dl (3.4-5.0); BUN Creatinine Ratio 20.4 (10-20); Bilirubin,Total 0.3 mg/dl (0.2-1.0); Calcium 8.1 mg/dl (8.5-10.1); Creatinine Clr Calc Pharmacy 194.2 ml/min; Est GFR (African American) 143.7 ml/min; Globulin 3.1 gm/dl (2.5-4.0); Potassium 3.5 mmol/L (3.5-5.1); Total Protein 6.3 gm/dl (6.0-8.3)
[2021-09-22 02:01] LABS: Creatinine Urine Random 27.2 mg/dl; Protein Creatinine Ratio Urine 0.2 (0-0.2); Total Protein Urine Random 4.1 mg/dl (0-11.9)
--- NOTE | 2021-09-22 07:16 | Obstetrical Progress Note ---
Date of Service <Gabrielle MirandaDO - Last Filed: 09/22/21 07:16> September 22, 2021 Assessment & Plan <Gabrielle MirandaDO - Last Filed: 09/22/21 07:16> (1) Hypertension: Plan Increase labetalol to 300mg TID. Will follow up with hospitalists for their recommendations. <Citlalli Avelar MD, FACOG - Last Filed: 09/22/21 08:09> (1) Hypertension: Subjective <Gabrielle MirandaDO - Last Filed: 09/22/21 07:16> Ronald is a 31 year old female post vaginal delivery on 09/16/2021. Presented to ED on elevated BP on 09/19/2021 with concerns for preeclampsia. She was a history of post pre eclampsia with her prior and required magnesium at that time. Her labs have been within the normal range. She has chronic hypertension that is normally well controlled with 10mg lisinopril. She was discharged on 200 mg labetalol BID. Over night her blood pressures were persistently elevated to 170-180s/100s. She received a dose of 5mg hydralazine and extra 100 mg dose of labetalol. Her headache was significantly improved from yesterday and she denies any other symptoms. Review of Systems Denies fever, chills, sweats Denies shortness of breath, difficulty breathing, chest pain, palpitations, chest pressure. Denies breast pain. Denies dysuria. Denies headache or changes in vision. Physical Exam <Gabrielle MirandaDO - Last Filed: 09/22/21 07:16> General: Alert, oriented. No acute distress. Cardiac: Regular rate and rhythm, no murmurs/rubs/gallops. Respiratory: Clear to auscultation bilaterally a/p, no wheezes/rales/rhonchi. No increased work of breathing. Symmetrical chest rise. No respiratory distress. Abdomen: Soft, nontender, nondistended. Bowel sounds present. Lower Extremities: No lower extremity edema or swelling. No deep calf pain. Georgie's negative bilaterally. Results & Data ([facility]) <Gabrielle BalderasUnique Miranda DO - Last Filed: 09/22/21 07:16> Vital Signs (Past 12 Hours) Vital Signs Temp Pulse Resp BP Pulse Ox O2 Del Method 09/22/21 00:32 68 166/107 H 09/21/21 23:39 71 183/112 H 09/21/21 23:20 36.5 C 67 18 97 Room Air 09/21/21 22:00 156/94 H 09/21/21 19:40 167/105 H 09/21/21 19:18 37.1 C 60 16 181/108 H 98 Room Air <Citlalli Avelar MD, FACOG - Last Filed: 09/22/21 08:09> Co-Signing Physician Notes Resident Physician Supervision Note: I interviewed and examined the patient. Discussed with Dr. Miranda and agree with findings and plan as documented in the note. Any exceptions or clarifications are listed here: Patient day two from admission from worsening BP thought to be from exacerbation of chtn and not pet. Her labs have been stable x3. Today she notes she is feeling better, no easton this am and was able to get some rest. She had an elevated blood pressure overnight requiring iv hydralazine. I increased her labetalol to 300mg tid. Her exam is benign for s/s of pet. Will need to work with our medicine colleagues to determine a plan. She was well managed on lisinopril, but there is no data on lisinopril in and all recommendations note to use another med or stop breast feeding if need this med. Discussed will likely not be able to d/c today which the patient understands but she is tearful about. Converted from obs to admission. Documented By: Citlalli Avelar MD, FACOG
[2021-09-22] MEDS ORDERED: PRENATAL VITAMIN 1 TAB PO SCH (08:00)
--- NOTE | 2021-09-22 08:24 | Hospitalist Progress Note ---
Date of Service September 22, 2021 Assessment & Plan (1) Tension headache: Plan: 31 year old female PMH HTN currently who presented to the ER due to headache, feet swelling and high blood pressure. (1) Hypertension Patient understands her HTN will not cause complications immediately, if she still has trouble managing BP later while we can switch to formula as needed, otherwise will wait until after breast feeding to resume her losa rtan. Low suspicion for preEclampsia Given Labetalol 300mg AM, dc'd Started on Nifedipine ER 30mg in AM and 60mg in PM continue to monitor BP, may consider adding Propanolol if not controlled (2) Tension headache: - resolved Encourage rest Acetaminophen PRN FENa: regular OB Code Status: full DVT PPX: scds Dispo: Yaquelin Javier Do PGY 2, FCM (2) Hypertension: Admission and Anticipated Discharge Date Admission Date: September 22, 2021 Supervising Physician Co-Signing Physician Notes I personally examined the patient and verified all garcia points of history and exam, discussed case, and agree with decision making with Dr Ely feeling OK. Headache resolved. Blood pressure still about 167/100 whenever I see her, but headache has resolved. Notes that with headache she has not had blurred vision confusion or any altered consciousness. Also is not sure what her blood pressures have been running from delivery to now. Vitals noted, in general she is awake and alert pleasant no distress. HEENT normocephalic atraumatic mucous membranes moist. Breathing unlabored no accessory muscle use good effort. Neuro shows cranial nerves II through XII be grossly intact gross motor and sensory intact. Uncontrolled hypertensionI really doubt a true hypertensive urgency. She did have a headache, but the description sounded much more consistent with a tension headache, certainly not a hypertensive headache. And further her headache resolved while her blood pressure stayed about the same. We discussed this extensively, discussed that that right now her blood pressure is probably up partly from essential hypertension, partly from the stress of the current situation, and partly from possibly resolving physiologic changes from the end of her . All of this means this will likely be a very dynamic situation. Given that she is not showing any endorgan damage or acute decompensating signs or symptomswe discussed that with her preference of breast-feeding we are very likely to be able to manage her blood pressure for now with medications that are okay with . We discussed that over the long haul, there are other medications (such as BENOIT inhibitor's) that do tend to get better morbidity mortality data in the long run, but given that would be a fairly short-lived thing (possibly up to a year) it would be reasonable to manage her blood pressure and ways that her friendly until then and then switch over to a more traditional regimen. Given that labetalol is 3 times daily, and is difficult to keep up with at homehave given trial to long-acting nifedipineas of the time of this dictation her most recent pressure is 149/93 which is pretty reasonable given the situation. We will follow into tomorrow. consider adding propranolol if additional meds needed. hopefully home tomorrow. Subjective Patient seen at bedside, comfortable cooperative, she is anxious regarding her elevated blood pressure. Patient came in with headache that improved with massage that just aleviated today, admitted for elevated BP with concerns of Pre-Eclampsia. OB not concerned for preEclampsia at this time. Patient is <1 month post after her 2nd child, complicated by gHTN on chronic HTN normal vaginal delivery. She states her HTN was initially well controlled at 5mg lisinopril, had required increasing doses ever since the of her child, was later switched to losartan. Patient became teary states she is willing to switch from breast feeding to formula feed if this allows her more medication options to manage her blood pressure. Patient aware anxiety over blood pressure increases blood pressure. Review of Systems Review of Systems: Negative fever chills Negative headache dizziness Negative chest pain palpitations SOB Negative nausea vomitting diarrhea constipation Negative numbness tingling rash swelling Physical Exam Constitutional: WD/WN, vitals as above Eyes: PERRL, conjunctivae normal, anicteric sclerae ENMT: external ear and nose normal, oropharynx normal Neck: trachea midline, no thyromegaly Respiratory: normal respiratory effort, lungs clear to auscultation Cardiovascular: RRR, no murmur, no edema Chest (Breasts): Chest: normal inspection of chest Gastrointestinal (Abdomen): normal bowel sounds, soft, nontender, no hepatosplenomegaly Skin: no rashes, warm and dry Neurologic: CN's II-XI intact bilaterally Results & Data Results & Data ([facility]) Vital Signs (Past 12 Hours) Vital Signs Temp Pulse Resp BP Pulse Ox O2 Del Method 09/22/21 00:32 68 166/107 H 09/21/21 23:39 71 183/112 H 09/21/21 23:20 36.5 C 67 18 97 Room Air 09/21/21 22:00 156/94 H Diagnostic Findings Laboratory Results WBC 7.64 K/ul (4.8-10.8) 09/22/21 00:02 RBC 3.49 M/uL (3.93-5.22) L 09/22/21 00:02 Hgb 9.9 g/dl (12.0-16.0) L 09/22/21 00:02 Hct 30.7 % (34.1-44.9) L 09/22/21 00:02 MCV 88.0 fL (80.0-100.0) 09/22/21 00:02 MCH 28.4 pg (25.0-34.0) 09/22/21 00:02 MCHC 32.2 g/dL (32.0-36.0) 09/22/21 00:02 RDW Std Deviation 47.1 fL (36.4-46.3) H 09/22/21 00:02 RDW Coeff of Amadou 14.6 % (11.5-14.5) H 09/22/21 00:02 Plt Count 208 K/uL (130-400) 09/22/21 00:02 MPV 10.8 fL (9.4-12.3) 09/22/21 00:02 Immature Gran % (Auto) 0.5 % 09/21/21 12:38 Neut % (Auto) 65.1 % 09/21/21 12:38 Lymph % (Auto) 23.7 % 09/21/21 12:38 Howard % (Auto) 6.7 % 09/21/21 12:38 Eos % (Auto) 3.5 % 09/21/21 12:38 Baso % (Auto) 0.5 % 09/21/21 12:38 Neut # (Auto) 5.02 K/uL (1.4-6.5) 09/21/21 12:38 Lymph # (Auto) 1.83 K/uL (1.2-3.4) 09/21/21 12:38 Howard # (Auto) 0.52 K/uL (0.24-0.82) 09/21/21 12:38 Eos # (Auto) 0.27 K/uL (0-0.50) 09/21/21 12:38 Baso # (Auto) 0.04 K/uL (0-0.2) 09/21/21 12:38 Immature Gran # (Auto) 0.04 K/uL (0.00-0.02) H 09/21/21 12:38 PT 9.5 Seconds (9.0-12.0) 09/20/21 23:38 INR 0.9 (0.9-1.1) 09/20/21 23:38 APTT 27.2 Seconds (21.0-31.0) 09/20/21 23:38 PTT Ratio 1.0 09/20/21 23:38 Sodium 138 mmol/L (136-145) 09/22/21 00:02 Potassium 3.5 mmol/L (3.5-5.1) 09/22/21 00:02 Chloride 106 mmol/L (98-107) 09/22/21 00:02 Carbon Dioxide 23 mmol/L (21-32) 09/22/21 00:02 Anion Gap 9 (3-11) 09/22/21 00:02 BUN 11 mg/dl (6-23) 09/22/21 00:02 Creatinine 0.54 mg/dl (0.6-1.2) L 09/22/21 00:02 Est Cr Clr Drug Dosing 194.2 ml/min 09/22/21 00:02 Est GFR ( Amer) 143.7 ml/min 09/22/21 00:02 Est GFR (Non-Af Amer) 124.0 ml/min 09/22/21 00:02 BUN/Creatinine Ratio 20.4 (10-20) H 09/22/21 00:02 Glucose 95 mg/dl (70-99(Fasting)) 09/22/21 00:02 Calcium 8.1 mg/dl (8.5-10.1) L 09/22/21 00:02 Total Bilirubin 0.3 mg/dl (0.2-1.0) 09/22/21 00:02 AST 39 U/L (13-39) 09/22/21 00:02 ALT 47 U/L (7-52) 09/22/21 00:02 Alkaline Phosphatase 85 U/L (34-104) 09/22/21 00:02 Troponin I High Sens 10.9 pg/ml (0-14) 09/20/21 23:38 Total Protein 6.3 gm/dl (6.0-8.3) 09/22/21 00:02 Albumin 3.2 gm/dl (3.4-5.0) L 09/22/21 00:02 Globulin 3.1 gm/dl (2.5-4.0) 09/22/21 00:02 Albumin/Globulin Ratio 1.0 (0.9-2) 09/22/21 00:02 Urine Color Yellow 09/21/21 00:00 Urine Appearance Clear (Clear) 09/21/21 00:00 Urine pH 6.0 (4.5-7.5) 09/21/21 00:00 Ur Specific [place] 1.006 (1.000-1.030) 09/21/21 00:00 Urine Protein Negative (Negative) 09/21/21 00:00 Urine Glucose (UA) Negative (Negative) 09/21/21 00:00 Urine Ketones Negative (Negative) 09/21/21 00:00 Urine Blood 2+ (Negative) H 09/21/21 00:00 Urine Nitrite Negative (Negative) 09/21/21 00:00 Urine Bilirubin Negative (Negative) 09/21/21 00:00 Urine Urobilinogen Negative (Negative) 09/21/21 00:00 Ur Leukocyte Esterase Trace (Negative) H 09/21/21 00:00 Urine WBC (Auto) 1-5 /hpf (0-5) 09/21/21 00:00 Urine RBC (Auto) 0-4 /hpf (0-4) 09/21/21 00:00 U Hyaline Cast (Auto) 0 /lpf (0-5) 09/21/21 00:00 U Epithel Cells (Auto) 5-10 /lpf (0-5) H 09/21/21 00:00 Urine Bacteria (Auto) Negative (Negative) 09/21/21 00:00 Ur Random Creatinine 27.2 mg/dl 09/21/21 00:00 U Random Total Protein 4.1 mg/dl (0-11.9) 09/21/21 00:00 Protein/Creatinin Ratio 0.2 (0-0.2) 09/21/21 00:00 SARS-CoV-2, RNA, NAAT NEGATIVE (NEGATIVE) 09/21/21 08:37 Resident Activity Tracking Resident Involvement: Resident Care Provided Care Provided: Adult Hospital Medicine
[2021-09-22] MEDS: PRENATAL VITAMIN 1 TAB PO SCH (08:57)
[2021-09-22] MEDS ORDERED: LABETALOL HCL 300 MG TAB PO SCH (09:00)
[2021-09-22] MEDS ORDERED: NIFEdipine EXTENDED REL 30 MG TABCR PO STA ×2 (11:43→15:59)
--- NOTE | 2021-09-22 19:04 | Billing Data ---
Date of Service September 22, 2021 Coding Level of Care Code 10724 Subseq Hosp Care Lvl 3
[2021-09-22] MEDS ORDERED: bisacodyL 5 MG TABEC PO SCH (20:00)
[2021-09-22] MEDS: ACETAMINOPHEN 325 MG TAB PO PRN (21:56)
[2021-09-23] MEDS: ACETAMINOPHEN 325 MG TAB PO PRN (05:01)
--- NOTE | 2021-09-23 06:17 | Obstetrical Progress Note ---
Date of Service <Gabrielle Gutierrez DO Ruben - Last Filed: 09/23/21 07:00> September 23, 2021 Assessment & Plan <Gabrielle Gutierrez DO Ruben - Last Filed: 09/23/21 07:00> (1) Hypertension: Plan Blood pressures have been stable overnight. She is currently , so will need to that into consideration when deciding on medication. Will follow up with hospitalists for their recommendations. <Norris Hernández MD - Last Filed: 09/23/21 08:04> (1) Hypertension: Subjective <Gabrielle S. DO Ruben - Last Filed: 09/23/21 07:00> Ronald is a 31 year old female post vaginal delivery on 09/16/2021. Presented to ED on elevated BP on 09/19/2021 with concerns for preeclampsia. She was a history of post pre eclampsia with her prior and required magnesium at that time. Her labs have been within the normal range. She has chronic hypertension that is normally well controlled with 10mg lisinopril. She was discharged on 200 mg labetalol BID. Yesterday she was on 300mg Labetalol TID and got 2 doses of nifedipine yesterday afternoon; 30mg then 60mg. Blood pressures have been well controlled since the nifedipine was given yesterday afternoon. Denies any symtoms. Review of Systems Denies fever, chills, sweats Denies shortness of breath, difficulty breathing, chest pain, palpitations, chest pressure. Denies breast pain. Denies dysuria. Denies headache or changes in vision. Physical Exam <Gabrielle Matt Miranda DO - Last Filed: 09/23/21 07:00> General: Alert, oriented. No acute distress. Cardiac: Regular rate and rhythm, no murmurs/rubs/gallops. Respiratory: Clear to auscultation bilaterally a/p, no wheezes/rales/rhonchi. No increased work of breathing. Symmetrical chest rise. No respiratory distress. Abdomen: Soft, nontender, nondistended. Bowel sounds present. Lower Extremities: No lower extremity edema or swelling. No deep calf pain. Georgie's negative bilaterally. Results & Data ([facility]) <Gabrielle Miranda DO - Last Filed: 09/23/21 07:00> Vital Signs (Past 12 Hours) Vital Signs Temp Pulse Resp BP BP Pulse Ox O2 Del Method 09/23/21 03:00 36.7 C 89 16 109/69 97 Room Air 09/22/21 23:20 36.9 C 80 16 125/79 96 Room Air 09/22/21 21:57 88 134/92 09/22/21 20:05 37.1 C 93 H 20 131/78 98 Room Air 09/22/21 18:15 87 149/93 H <Norris Hernández MD - Last Filed: 09/23/21 08:04> Co-Signing Physician Notes patient was seen with resident degree of above findings and plan. Patient is currently being seen by Medicine and consultation. Blood pressure is well controlled on Procardia. Discussed potential discharge today if blood pressures remain stable. Will await blood pressure medication recommendations and discharge recommendations for blood pressure management from medicine. Continues to deny preeclampsia symptoms.
--- NOTE | 2021-09-23 07:12 | Hospitalist Progress Note ---
Date of Service September 23, 2021 Assessment & Plan (1) Tension headache: Plan: 31 year old female PMH HTN currently who presented to the ER due to headache, feet swelling and high blood pressure. (1) Hypertension Patient understands her HTN will not cause complications immediately, if she still has trouble managing BP later while we can switch to formula as needed, otherwise will wait until after breast feeding to resume her losa rtan. Low suspicion for preEclampsia. Initially trialed Labetalol, switched to Nifedipine. Given 90mg Nifedipine ER yesterday, blood pressure wnl today. She may continue with 60mg Nifedipine ER qAM daily and follow up with her PCP to monitor her blood pressure. (2) Tension headache: - resolved Encourage rest, massage Acetaminophen PRN Hospitalist service will sign off. Yaquelin Ely Do PGY 2, FCM (2) Hypertension: Admission and Anticipated Discharge Date Admission Date: September 22, 2021 Supervising Physician Co-Signing Physician Notes I personally examined the patient and verified all garcia points of history and exam, discussed case, and agree with decision making with Dr Ely Feels good and very much wants to go home. Vitals noted, in general she is awake and alert pleasant no distress. HEENT normocephalic atraumatic mucous membranes moist. Breathing unlabored no accessory muscle use good effort. Neuro shows cranial nerves II through XII be grossly intact gross motor and sensory intact. Plan from 09/23: Uncontrolled hypertensionI really doubt a true hypertensive urgency. She did have a headache, but the description sounded much more consistent with a tension headache, certainly not a hypertensive headache. And further her headache resolved while her blood pressure stayed about the same. We discussed this extensively, discussed that that right now her blood pressure is probably up partly from essential hypertension, partly from the stress of the current situation, and partly from possibly resolving physiologic changes from the end of her . All of this means this will likely be a very dynamic situation. Given that she is not showing any endorgan damage or acute decompensating signs or symptomswe discussed that with her preference of breast-feeding we are very likely to be able to manage her blood pressure for now with medications that are okay with . We discussed that over the long haul, there are other medications (such as BENOIT inhibitor's) that do tend to get better morbidity mortality data in the long run, but given that would be a fairly short-lived thing (possibly up to a year) it would be reasonable to manage her blood pressure and ways that her friendly until then and then switch over to a more traditional regimen. Given that labetalol is 3 times daily, and is difficult to keep up with at homehave given trial to long-acting nifedipineas of the time of this dictation her most recent pressure is 149/93 which is pretty reasonable given the situation. We will follow into tomorrow. consider adding propranolol if additional meds needed. hopefully home tomorrow. 09/24 updateblood pressure is much better controlled, appears very safe/stable for home on nifedipineactually given her control instead of the anticipated 90 mg, will send home on 60 mg. Close outpatient follow-up. All questions answered to the best my ability and to her/'s satisfaction. Extensively discussed lifestyle change as well. Subjective Patient seen at bedside calm comfortable cooperative, states she woke up with mild headache this morning but aware her blood pressures are within normal limits, states she is otherwise comfortable, looks forward to going home. Review of Systems Review of Systems: mild headache Negative fever chills Negative dizziness Negative chest pain palpitations SOB Negative nausea vomitting diarrhea constipation Negative numbness tingling rash swelling Physical Exam Constitutional: WD/WN, vitals as above Eyes: PERRL, conjunctivae normal, anicteric sclerae ENMT: external ear and nose normal, oropharynx normal Neck: trachea midline, no thyromegaly Respiratory: normal respiratory effort, lungs clear to auscultation Cardiovascular: RRR, no murmur, no edema Chest (Breasts): Chest: normal inspection of chest Gastrointestinal (Abdomen): normal bowel sounds, soft, nontender, no hepatosplenomegaly Skin: no rashes, warm and dry Neurologic: CN's II-XI intact bilaterally Results & Data Results & Data ([facility]) Vital Signs (Past 12 Hours) Vital Signs Temp Pulse Resp BP BP Pulse Ox O2 Del Method 09/23/21 03:00 36.7 C 89 16 109/69 97 Room Air 09/22/21 23:20 36.9 C 80 16 125/79 96 Room Air 09/22/21 21:57 88 134/92 09/22/21 20:05 37.1 C 93 H 20 131/78 98 Room Air Medications Administered Current Inpatient Medications Acetaminophen (Acetaminophen 325 Mg Tab) 650 mg PO Q6H PRN PRN Reason: Pain/PRESCOTT/Fever Stop: 10/21/21 20:57 Last Admin: 09/23/21 05:01 Dose: 650 mg Hydralazine HCl (Hydralazine Hcl 20 Mg/Ml Vial) 5 mg IV Q4H PRN PRN Reason: sBP > 180; diastolic BP>120 Stop: 10/21/21 13:52 Last Admin: 09/21/21 23:47 Dose: 5 mg Lactated Ringer's (Lr) 1,000 mls @ 125 mls/hr IV .Q8H PRN; Protocol PRN Reason: L&D Protocol Stop: 10/21/21 07:20 Ibuprofen (Ibuprofen 600 Mg Tab) 600 mg PO Q4H PRN PRN Reason: Pain/PRESCOTT/Cramping/Fever Stop: 10/21/21 20:57 Last Admin: 09/23/21 08:59 Dose: 600 mg Nifedipine (Nifedipine Extended Rel 30 Mg Tabcr) 30 mg PO DAILY LUCHO Stop: 10/23/21 08:59 Last Admin: 09/23/21 10:26 Dose: 30 mg Prenat Multivit/[place]/Iron/Folic Ac ( Vitamin 1 Tab) 1 tab PO DAILY LUCHO Stop: 10/22/21 08:59 Last Admin: 09/23/21 08:59 Dose: 1 tab Resident Activity Tracking Resident Involvement: Resident Care Provided Care Provided: Adult Hospital Medicine
[2021-09-23] MEDS: PRENATAL VITAMIN 1 TAB PO SCH (08:59)
[2021-09-23] MEDS ORDERED: NIFEdipine EXTENDED REL 30 MG TABCR PO SCH ×2 (09:00)
--- NOTE | 2021-09-23 12:20 | Communication Note ---
Date of Service: September 23, 2021 Notified by hospitalist service that pt ok to dc and plan outpt procardia er 60mg daily. will dose additional 30mg today before she leaves and she has plan t o followup with pcp on saturday. d/w nurse taking care of pt. orders put in, script sent.
[2021-09-23] MEDS ORDERED: NIFEdipine EXTENDED REL 30 MG TABCR PO ONE (12:21)
--- NOTE | 2021-09-23 18:38 | Billing Data ---
Date of Service September 23, 2021 Coding Level of Care Code 60489 Subseq Hosp Care Lvl 3
--- NOTE | 2021-09-26 08:00 | Discharge Summary (DS) ---
DATE OF ADMISSION: 09/22/2021 DATE OF DISCHARGE: 09/23/2001. PRINCIPAL DIAGNOSIS: Status post spontaneous vaginal delivery on 09/16/2021 and uncontrolled hyperte nsion. HISTORY: The patient is a 31-year-old 2, para 2-0-0-2 female who delivered spontaneously fol lowing induction of labor for gestational hypertension, superimposed on chronic hypertension on 09/16. Her pressures had remained elevated in the period and she was discharged on 100 mg of labetalol daily. PET labs were all normal during her admission. As an outpatient, her labetalol was increased to 200 mg twice a day. She stated she had been having intermittent headaches and while she was nesting here in the mother/baby unit because her baby was being monitored for elevated bilir ubins, it was noted her pressures were elevated to 180/103. She went to the emergency room for furth er evaluation at which point she received 2 doses of IV labetalol, which did not significantly change her pressure. She did receive one oral dose of 30 mg of Procardia, which helped to bring her pressu re down out of the severe range. She was then admitted for further control of her pressures. She in itially was tried on a course of labetalol 300 mg b.i.d. This did not significantly change her press ures. She was then switched to Procardia 60 mg extended release, which eventually brought her pressu res down into the moderately elevated range of 150s/90s. She had a headache initially when she was a dmitted, but this had resolved. Her labs all remained normal. Her slightly elevated AST on admissio n, which was 41, then returned to normal. All other PET labs were normal. She was sent home to be f annettelowed up with her primary care for further hypertension monitoring and she will be seen in the off ce with us in 5 weeks for her followup visit at her time. Job ID: [id number]
== END 2021-09-23 13:14 | disposition home or self-care (01) | DRG 776 ==
LOC: 4E2 23:06 → ED 23:06 → 4E2 09-21 09:48